=== PATIENT | male | born 1965 | race Caucasian/White ===

== ENCOUNTER 2023-09-20 20:11 | Emergency (ER) | payer BC, SELFPAY ==
[2023-09-20 20:16] VITALS: BP 156/94; PULSE 95; RESP 18; TEMP 36.8; O2SAT 100; BMI 24.3
--- NOTE | 2023-09-20 20:36 | XR_ITS ---
[place] [id number] Patient Name: ELIZABETH PHOENIX MRN: [id number] date: 1965 Sex: M Assigned Patient Location: ER Current Patient Location: ED.MAIN Accession/Order Number: [id number] Exam Date: 09/20/2023 20:45 Report Date: 09/20/2023 21:05 At the request of: HEIDI PRIETO Procedure: XR shoulder RT min 2V EXAM: XR shoulder RT min 2V TECHNIQUE: Internal rotation, external rotation and scapular Y views right shoulder HISTORY: Right shoulder pain COMPARISON: None. FINDINGS: No fracture or dislocation. Soft tissues are unremarkable. Mild degenerative change of the acromioclavicular joint. XR/XR shoulder RT min 2V IMPRESSION: No fracture Electronically authenticated by: SHAHLA AGUILAR Date: 09/20/2023 21:05
--- NOTE | 2023-09-20 20:46 | ED_ITS ---
HPI - Extremity Injury (Upper) General Chief Complaint: Extremity Injury, Upper Stated Complaint: Upper Extremity Pain Time Seen by Provider: 09/20/23 20:36 Source: patient Mode of arrival: walk-in Limitations: no limitations History of Present Illness HPI narrative: Patient is a 57-year-old male who presents to the emergency department for right shoulder pain increasing throughout the day. Patient states he is not sure if he may have slept wrong on his shoulder. 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 He denies any specific mechanism of injury or trauma. He states pain is increased throughout the day and now he is having trouble with abduction at the right shoulder. Most of his pain is at the right glenohumeral joint. He denies numbness or tingling into the right arm. No chest pain or shortness of breath. He does not take any blood thinners, no medications for diabetes at home. No pain radiation down the arm. Related Data Previous Rx's ?Medication ?Instructions ?Recorded methocarbamol 750 mg tablet 750 mg PO TID PRN pain #20 tabs 09/20/23 prednisone 20 mg tablet See Rx Instructions .Route 09/20/23 .COMPLEX #12 tabs Allergies Allergy/AdvReac Type Severity Reaction Status Date / Time No Known Drug Allergies Allergy Verified 09/20/23 20:20 Review of Systems ROS Constitutional Denies: fever or chills Ears, nose, mouth, and throat Denies: throat pain or nasal congestion Cardiovascular Denies: chest pain Respiratory Denies: shortness of breath or cough Gastrointestinal Denies: nausea or vomiting Genitourinary Denies: painful urination Musculoskeletal Reports: extremity pain, joint pain and limited range of m otion; Denies: back pain or neck pain Integumentary/Breast Denies: rash Neurological Denies: headache Hematologic/Lymphatic Denies: easy bruising or easy bleeding Exam Narrative Exam Narrative: Gen.: Awake, alert, in no distress Head: Normocephalic, atraumatic ENT: Moist mucous membranes Respiratory: No respiratory distress Extremities: Limited abduction of the right shoulder, diffusely tender on the right glenohumeral joint with no obvious deformity. 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 2+ right radial pulse. No tenderness over the clavicle or scapula. Psych: Normal mood and affect Neuro: No focal neuro deficit Skin: Warm, dry, intact Constitutional Vital Signs, click to edit/add: Last Vital Signs Temp 98.2 F 09/20/23 20:16 Pulse 95 H 09/20/23 20:16 Resp 18 09/20/23 20:16 BP 156/94 H 09/20/23 20:16 Pulse Ox 100 09/20/23 20:16 O2 Del Method Room Air 09/20/23 20:16 Course Vital Signs Vital signs: Vital Signs Temperature 98.2 F 09/20/23 20:16 Pulse Rate 95 H 09/20/23 20:16 Respiratory Rate 18 09/20/23 20:16 Blood Pressure 156/94 H 09/20/23 20:16 Pulse Oximetry 100 09/20/23 20:16 Oxygen Delivery Method Room Air 09/20/23 20:16 Temperature 98.2 F 09/20/23 20:16 Pulse Rate 95 H 09/20/23 20:16 Respiratory Rate 18 09/20/23 20:16 Blood Pressure 156/94 H 09/20/23 20:16 Pulse Oximetry 100 09/20/23 20:16 Oxygen Delivery Method Room Air 09/20/23 20:16 MDM - Extremity Injury (Upper) MDM Narrative Medical decision making narrative: X-rays with mild degenerative changes, no acute process noted. Patient treated for symptoms in the ER and discharged home on a steroid taper with muscle relaxants for right shoulder pain. Follow-up with orthopedics, sling for 2 to 3 days as needed and return to the ER if symptoms change or worsen. Patient is neurovascularly intact at discharge. Medical Records Attestation: I reviewed the patient's medical records. Imaging Data XR shoulder: Attestation: I have reviewed the pertinent imaging results. Radiologist's impression: ITS Impressions Shoulder X-Ray 09/20/23 20:36 IMPRESSION: No fracture Electronically authenticated by: SHAHLA AGUILAR Date: 09/20/2023 21:05 Discharge Plan Discharge Stand Alone Forms: Portal Instructions Chief Complaint: Extremity Injury, Upper Clinical Impression: Right shoulder strain Patient Disposition: Home, Self-Care Time of Disposition Decision: 21:02 Condition: Good Prescriptions / Home Meds: New prednisone 20 mg tablet See Rx Instructions .ROUTE .COMPLEX Qty: 12 0RF Rx Instructions: 3 tabs daily for 2 days, then 2 tabs daily for 2 days, then 1 tab daily for 2 days methocarbamol 750 mg tablet 750 mg PO TID PRN (Reason: pain) Qty: 20 0RF Print Language: Amharic Instructions: Muscle Strain (ED), How to Use a Sling (ED) Referrals: Aries Tang MD [Primary Care Provider] - 1 week Javi Sierra MD [Physician] - As needed Discharge Date/Time: 09/20/23 21:15
[2023-09-20] MEDS: ORPHENADRINE 60 MG/ 2 ML VIAL IM (20:59)
[2023-09-20] MEDS: HYDROCODONE/ACET 5-325 MG TABLET 1 TAB PO (20:59)
[2023-09-20] MEDS: KETOROLAC TROMETHAMINE 60 MG/2 ML VIAL IM (21:00)
== END 2023-09-20 21:15 | disposition home or self-care (01) ==
PROVIDERS: Emergency Provider Emergency Medicine; PCP Family Medicine
DX: S46.911A Strain of unspecified muscle, fascia and tendon at shoulder and upper arm level, right arm, initial encounter (principal); X58.XXXA Exposure to other specified factors, initial encounter
CPT/HCPCS: 73030; 96372; 99284

== ENCOUNTER 2024-05-11 08:14 | Outpatient (OUT) | payer BC, SELFPAY ==
[2024-05-11 09:08] LABS: Basophils Absolute Auto 0.1 10^3/uL (0.0-0.1); Basophils Percent Auto 0.7 % (0.2-2.0); Eosinophils Absolute Auto 0.2 10^3/uL (0.0-0.7); Eosinophils Percent Auto 2.2 % (0.9-7.0); Hematocrit 44.9 % (42.0-54.0); Immature Granulocytes Abs Auto 0.02 10^3/uL (0.00-0.03); Immature Granulocytes Pct Auto 0.3 % (0.0-0.5); Lymphocytes Absolute Auto 2.3 10^3/uL (1.2-3.8); Lymphocytes Percent Auto 30.5 % (20.5-60.0); Mean Corpuscular HGB Conc 33.4 g/dL (29.9-35.2); Mean Corpuscular Hemoglobin 30.5 pg (25.9-34.0); Mean Corpuscular Volume 91.4 fL (80.0-94.0); Monocytes Absolute Auto 0.7 10^3/uL (0.3-0.8); Monocytes Percent Auto 9.9 % (1.7-12.0); Neutrophils Absolute Auto 4.2 10^3/uL (1.4-6.5); Neutrophils Percent Auto 56.4 % (43.0-75.0); Platelet Count 223 10^3/uL (150-450); Red Blood Count 4.91 10^6/uL (4.70-6.10); Red Cell Distribution Width 12.6 % (11.0-15.0); White Blood Count 7.4 10^3/uL (4.0-11.0)
[2024-05-11 09:20] LABS: Estimated Average Glucose 111 mg/dL; Glycohemoglobin A1C 5.5 % (4.5-6.2)
[2024-05-11 09:31] LABS: Alanine Aminotransferase 20 U/L (16-63); Albumin Level 3.2 g/dL (3.4-5.0); Alkaline Phosphatase 109 U/L (46-116); Aspartate Amino Transferase 6 U/L (15-37); Bilirubin Total 0.5 mg/dL (0.2-1.0); Calcium 8.7 mg/dL (8.5-10.1); Carbon Dioxide 26.5 mmol/L (21.0-32.0); Chloride 107 mmol/L (98-107); Chol HDL Ratio 4.8; Cholesterol 179 mg/dL (<=200); Estimated GFR (African America >60 (>=60 mL/min/1.73m^2); Estimated GFR (Non-African Ame >60 (>=60 mL/min/1.73m^2); Globulin 3.3 g/dL; Glucose 98 mg/dL (74-106); HDL Cholesterol 37 mg/dL (40-60); Potassium 4.5 mmol/L (3.5-5.1); Sodium 142 mmol/L (136-145); Total Protein 6.5 g/dL (6.4-8.2); Triglycerides 138 mg/dL (<=150); VLDL CHOLESTEROL 27.6 mg/dL
[2024-05-11 10:05] LABS: Prostate Specific Antigen Scrn 0.62 ng/mL (<=4.00)
== END 2024-05-11 08:15 | disposition home or self-care (01) ==
PROVIDERS: PCP Family Medicine; Visit Provider Family Medicine
DX: Z00.00 Encounter for general adult medical examination without abnormal findings (principal)
CPT/HCPCS: 36415; 80053; 80061; 83036; 85025; G0103

== ENCOUNTER 2024-06-03 16:04 | Outpatient (OUT) | payer BC, SELFPAY ==
--- NOTE | 2024-06-03 | CT_ITS ---
[address] [address] Patient Name: ELIZABETH PHOENIX MRN: [id number] date: 1965 Sex: M Assigned Patient Location: CT Current Patient Location: Accession/Order Number: [id number] Exam Date: 06/03/2024 16:05 Report Date: 06/04/2024 05:44 At the request of: HARRY BAIG Procedure: CT lung screening low-dose EXAMINATION: CT lung screening low-dose HISTORY: F17.210 COMPARISON: No relevant comparison available. TECHNIQUE: Axial, Coronal, and Sagittal images were created without the administration of IV contrast material. Dose reduction techniques were achieved by using automated exposure control and/or adjustment of mA and/or kV according to patient size and/or use of iterative reconstruction technique. FINDINGS: LUNGS: Irregular geographic shaped opacity within lingula, 18 x 16 x 6 mm. Moderate-marked emphysematous changes within upper lung regions. PLEURA: No mass, effusion, or pneumothorax. VASCULATURE: No abnormality. RAGINI: No mass or pathologic adenopathy. MEDIASTINUM: No mass or pathologic adenopathy. CARDIAC: No enlargement, pericardial thickening, or pericardial effusion. Coronary Artery calcifications: AORTA: No aneurysm or dissection. CHEST WALL: No mass or axillary adenopathy BONES: No bone lesion or fracture. LIMITED ABDOMEN: No suspicious findings. Limited images of the upper abdomen. OTHER: Negative. CT/CT lung screening low-dose IMPRESSION: 1. Lung-RADS Category 4B- Suspicious. Findings for which additional diagnostic testing and/ or tissue sampling is recommended. Chest CT with or without contrast, PET/CT and/ or tissue sampling depending on the * probability of malignancy and comorbidities. PET/CT may be used when there is a >= 8 mm solid component. 2. PET imaging recommended for further evaluation of 18 mm geographic shaped soft tissue opacity within lingula. Electronically authenticated by: SHOBHA PATINO Date: 06/04/2024 05:44
== END 2024-06-03 16:05 | disposition home or self-care (01) ==
LOC: CT 16:05
PROVIDERS: PCP Family Medicine; Visit Provider Family Medicine
DX: R91.8 Other nonspecific abnormal finding of lung field (principal); F17.210 Nicotine dependence, cigarettes, uncomplicated
CPT/HCPCS: 71271

== ENCOUNTER 2024-06-17 15:45 | Outpatient (OUT) | payer BC, SELFPAY ==
--- NOTE | 2024-06-17 15:48 | PE_ITS ---
The [address] [address] Patient Name: ELIZABETH PHOENIX MRN: [id number] date: 1965 Sex: M Assigned Patient Location: PETCT Current Patient Location: PETCT Accession/Order Number: [id number] Exam Date: 06/17/2024 16:23 Report Date: 06/20/2024 23:39 At the request of: HARRY BAIG Procedure: PET skull to mid thigh PET/CT: HISTORY: Pulmonary nodule. COMPARISON: CT chest low-dose lung screening 06/03/2024. TECHNIQUE: The patient was injected with 14.69 mCi of F-18 fluorodeoxyglucose (FDG), and an emission scan was performed from the base of the skull to the mid thigh. Noncontrast CT was performed for attenuation correction and anatomic localization. The blood glucose level was 77 mg/dl. The uptake time was 49 minutes. FINDINGS: HEAD AND NECK: There is thickening of the nasopharyngeal soft tissues with intense FDG uptake on image 16 with SUV max 11.7 and there is a focus of increased activity in the left nasopharynx on image 21 with SUV max 16.4. There is prominent activity within the tonsils which is somewhat more intense in the left than the right with SUV max 13.6 on the left and 8.2 on the right. CHEST: The SUVmax of the mediastinum = 3.0 using the patient's body weight as the normalization method. The previously noted nodular density in the lingula shows no FDG uptake and appears decreased in size at 1.1 x 0.6 cm, previously 1.9 x 1.6 cm. This appears to be likely due to resolving atelectasis. There are multiple hypermetabolic bilateral axillary and subpectoral lymph nodes including for example a left axillary lymph node on image 71 with SUV max 16.7 measuring 1.9 x 0.9 cm, previously measuring 1.8 x 1.2 cm. There is a right axillary node on image 66 with SUV max 11.8 measuring 1.4 x 1 cm, previously 1.8 x 1 cm. There is a subcentimeter hypermetabolic lymph node in the subcarinal region at azygoesophageal recess and there are small hypermetabolic bilateral hilar lymph nodes. ABDOMEN AND PELVIS: There are bilateral hypermetabolic external iliac and inguinal lymph nodes including for example a right inguinal lymph node on image 260 with SUV max 12.6 measuring 1.5 x 1.1 cm. Otherwise physiologic distribution of activity. MUSCULOSKELETAL SYSTEM: There is moderate, likely inflammatory related activity about the shoulders bilaterally. There is an otherwise physiologic distribution of activity in the bone marrow. ADDITIONAL CT FINDINGS: There are moderate emphysematous changes in the lungs. There is diffuse atherosclerotic calcification of the aorta, iliac and femoral arteries. There are multiple diverticula in the descending and sigmoid colon with no acute diverticulitis. There is irregular sclerosis in the bilateral femoral head suspicious for avascular necrosis. There is transitional anatomy at the lumbosacral junction with a partially sacralized L5 on the left and a pseudoarticulation at L5-S1. There are bulky anterior osteophytes in the mid thoracic spine consistent with DISH and there are moderate degenerative changes of the lumbar spine. PET/PET skull to mid thigh IMPRESSION: 1. The previously noted lingular opacity appears decreased in size, non-FDG avid and is likely due to atelectasis. 2. Hypermetabolic bilateral axillary, external iliac and inguinal lymphadenopathy suspicious for a lymphoproliferative process such as lymphoma. Consider tissue sampling. 3. Thickening of the nasopharyngeal soft tissues with intense FDG uptake and focus of activity in the left nasopharynx. There is also prominent tonsillar activity, left greater than right. This may be inflammatory or due to malignancy. Consider direct visualization and/or contrast-enhanced CT or MRI of the neck. 4. Additional CT findings as described above including partial sacralization of L5 on the left with a pseudoarticulation. 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 Electronically authenticated by: SHOBHA SHELTON Date: 06/20/2024 23:39
== END 2024-06-17 15:46 | disposition home or self-care (01) ==
LOC: PETCT 15:45
PROVIDERS: PCP Family Medicine; Visit Provider Family Medicine
DX: R91.8 Other nonspecific abnormal finding of lung field (principal); C34.00 Malignant neoplasm of unspecified main bronchus
CPT/HCPCS: 78815; A9552

== ENCOUNTER 2024-06-28 15:31 | Outpatient (OUT) | payer BC, SELFPAY ==
--- OUTSIDE RECORDS SUMMARY | 2024-06-27 16:32 | XMS_ITS | CCD ---
Author Organization [facility] Care Team Providers Care Sugar Drier Name Role Phone KAILA ., BETTYE Admitting Unavailable HARRY TANG Primary Care Unavailable CONNER .BENJAMIN Consulting Unavailliborio BRIGHT ., BETTYE Attending Unavailable WEI QUEZADA Consulting Unavailable KAILA ., BETTYE Admitting Unavailable HARRY TANG Primary Care Unavailable KAILA Gleason, BETTYE Attending Unavailable KAILA Gleason, BETTYE Consulting Unavailable Harry Tang MD Primary Care Provider [phone] SANDOVAL BARTLETT Attending Unavailable HILLS, SANDOVAL D Referring Unavailable HILLS, SANDOVAL D Attending Unavailable HILLS, SANDOVAL D Referring Unavailable HAYES, DEVIN T Attending Unavailable HAYES, DEVIN T Attending Unavailable HAYES, DEVIN T Referring Unavailable HILLS, SANDOVAL D Attending Unavailable HILLS, SANDOVAL D Referring Unavailable HILLS, SANDOVAL D Referring Unavailable HILLS, SANDOVAL D Attending Unavailable BREEZYDania MOTA Attending Unavailable Allergies Allergy Classification Reported Allergen(s) Allergy Type Date of Onset Reaction(s) Facility (1 source) No Known Medication Allergies; Translations: [No Known Medication Allergies] Propensity to adverse reactions (disorder) [facility] Repository Medications Current Medications Medication Drug Class(es) Dates Sig (Normalized) Sig (Original) meloxicam 15 mg oral tablet (4 sources) Nonsteroidal Anti-inflammatory Drug Start: 05-06-2024 End: 08-04-2024 take 1 tablet by mouth once daily at mealtime meloxicam (Mobic) 15 MG tablet Indications: Bilateral shoulder pain, unspecified chronicity , Bilateral wrist pain Take 1 tablet (15 mg) by mouth Daily With food. 30 tablet 2 05/06/2024 08/04/2024 Active methocarbamol 750 mg oral tablet (4 sources) Muscle Relaxant Start: 09-21-2023 End: 02-26-2024 take 1 tablet by mouth three times daily as needed for pain methocarbamol (Robaxin) 750 MG tablet TAKE 1 TABLET BY MOUTH 3 TIMES A DAY NEEDED FOR PAIN 09/21/2023 02/26/2024 Discontinued (Therapy completed) naproxen 500 mg oral tablet (7 sources) Nonsteroidal Anti-inflammatory Drug Start: 11-13-2023 End: 08-21-2024 take 1 tablet by mouth in the morning naproxen (Naprosyn) 500 MG tablet Indications: Dysfunction of right rotator cuff Take 1 tablet (500 mg) by mouth in the morning and 1 tablet (500 mg) in the evening. Take with meals. 60 tablet 1 02/23/2024 08/21/2024 Active Problems Active Problems Problem Classification Problem Date Documented Da te Episodic/Chronic E Codes: Struck by; against (1 source) Striking against or struck by other objects, initial encounter; Translations: [STRIKING AGNST/STRUCK OTH OBJ INIT] Onset: 11-02-2022 Episodic Headache; including migraine (4 sources) Headache; including migraine; Translations: [HEADACHE UNSPECIFIED] Onset: 09-15-2022 Other non-traumatic joint disorders (2 sources) Pain in right shoulder; Translations: [Pain in joint, shoulder region] 05-06-2024 Episodic Other non-traumatic joint disorders (2 sources) Bilateral wrist pain; Translations: [Pain in right wrist] 05-06-2024 Episodic Other upper respiratory infections (1 source) Acute sinusitis, unspecified; Translations: [ACUTE SINUSITIS UNSPECIFIED] Onset: 09-19-2022 Episodic Substance-related disorders (1 source) Nicotine dependence, cigarettes, uncomplicated; Translations: [NICOTINE DEPEND CIGARETTES UNCOMP] Onset: 11-02-2022 Chronic Superficial injury; contusion (5 sources) Abrasion of left hand, initial encounter; Translations: [Contusion of left hand, initial encounter] Onset: 11-01-2022 Episodic Past or Other Problems Problem Classification Problem Date Documented Da te Episodic/Chronic Other connective tissue disease (1 source) Disorder of rotator cuff; Translations: [Unspecified disorder of synovium and tendon, right shoulder] 02-23-2024 Episodic Residual codes; unclassified (2 sources) History of arthroscopic procedure on shoulder; Translations: [Other specified postprocedural states] 02-26-2024 Episodic Results Test Name Value Interpretation Reference Range Facility No Panel Informationon 05-06 Radiology Study observation (narrative) [employer] XR Shoulder - left 2 Viewson 05-06-2024 Imaging Result : AP Grashey and scapular Y-view of the left shoulder taken in the officeToday does not demonstrate any significant proximal migration of the humeral head or osteoarthritis of the glenohumeral joint. He does have some thickening of the tip of the acromion with some downsloping which may be significant for impingement and some early ACJoint arthritic findings as well. No evidence of bony tumor or acute fracture seen. [employer] XR Shoulder - right 2 Viewso n 05-06-2024 [employer] Imaging Result: AP Grashey and scapular Y-view in the office taken today saved to the permanent record shows post surgical change with acromioplasty/partial distal clavulectomy with appropriate coplaning. No acute fracture, dislocation, tumor or infection seen. He also has early glenohumeral arthritic findings to the inferior pole of the acetabulum. No evidence of bony tumor acute fracture seen. [employer] MR SHOULDER RIGHT WO IV CONT RASTon 11-14-2023 MR SHOULDER RIGHT WO IV CONTRAST EXAM: MR SHOULDER RIGHT WO IV CONTRAST HISTORY: Right shoulder pain. Decreased range of motion. Possible rotator cuff tear TECHNIQUE: Multiplanar multisequence MRI of the shoulder was performed Without contrast. COMPARISON: Shoulder radiographs September 20, 2023 FINDINGS: Mild degenerative changes of the acromioclavicular joint with tiny undersurface osteophyte formation. The acromion is curved. Coracoclavicular ligament intact. Small amount of subacromial/subdeltoid bursal fluid. Bursal surface fraying of supraspinatus tendon superimposed on mild tendinosis. Infraspinatus, subscapularis, and teres minor tendons are intact. No atrophy or fatty infiltration of the rotator cuff musculature. The intra-articular and extra-articular long head biceps tendon is intact. The biceps tendon resides within the bicipital groove. Tear of the anterior superior through posterior superior labrum. No well-defined or measurable cartilage defect. No glenohumeral joint effusion . IMPRESSION: Bursal surface fraying of supraspinatus tendon superimposed on mild tendinosis. Tear of the anterior superior through posterior superior labrum. ELECTRONICALLY SIGNED BY: Fab Stern, DO Normal Not Available Comment on above: Order Comment: Lower back surgery- no metal XR HAND LT MIN 3Von 11-02-19 23 XR HAND LT MIN 3V EXAM: XR HAND LT MIN 3V HISTORY: Broken garage door spring hit hand COMPARISON: None. TECHNIQUE: 3 views FINDINGS: No visualized fracture, dislocation or subluxation. No radiodense foreign body. Joint spaces are normal. IMPRESSION: No visualized osseous abnormality. Electronically authenticated by: WEI QUEZADA Date: 2022-11-01 15:45 Normal [facility] INFLUENZA A AND B AGon 09-15 INFLUANE SEE BELOW Normal [facility] Comment on above: Result Comment: Nega tive for Flu A protein angiten. Infection due to Flu A cannot be ruled out. Flu A angiten in the sample may be below the detection limit of the test. Performed By: #### I NFLUAB #### [facility] [address] [place] [address] Dr. Megh[facility] Hern[facility] SEE BELOW Normal [facility] Comment on above: Result Comment: Nega tive for Flu B protein antigen. Infection due to Flu B cannot be ruled out. Flu B antigen in the sample may be below the detection limit of the test. Performed By: #### I NFLUAB #### [facility] [address] [place] [address] Dr. Meghana Hernandes INFLUENZA A AG Negative Normal NEGATIVE SEE COMMENT [facility] Comment on above: Performed By: #### I NFLUAB #### [facility] [address] [place] [address] Dr. Meghana Hernandes INFLUENZA B AG Negative Normal NEGATIVE SEE COMMENT [facility] Comment on above: Performed By: #### I NFLUAB #### [facility] [address] [place] [address] Dr. Meghana Hernandes Vital Signs Date Time Vital Sign Value Performing Clinician Faci lity 05-06-2024 10:26-0500 Body height 170.2 cm [facility] Work Phone: [facility] 02-26-2024 08:45-0400 Body height 170.2 cm Sandoval Bartlett PA Work Phone: [facility] 02-26-2024 08:45-0400 Body mass index (BMI) [Ratio] 29.6 kg/m2 Sandoval Bartlett PA Work Phone: [facility] 02-26-2024 08:45-0400 Body weight 85.73 kg Sandoval Bartlett PA Work Phone: [facility] Encounters Encounter Date Encounter Type Care Provider Facility Start: 05-14-2024 End: 05-14-2024 ambulatory Dania TIJERINA Facility:[facility] Start: 05-06-2024 End: 05-06-2024 Patient encounter procedure Sandoval Bartlett PA Work Phone: [facility] Comment on above: Bilateral shoulder p ain, unspecified chronicity (Primary Dx); Bilateral wrist pain Start: 05-06-2024 End: 05-06-2024 ambulatory SANDOVAL D NOAM Not Available Start: 02-26-2024 End: 02-26-2024 Bamboo flowsheet Sandoval Bartlett PA Work Phone: [facility] Start: 02-26-2024 End: 02-26-2024 Bamboo flowsheet Sandoval Bartlett PA Work Phone: [facility] Start: 02-26-2024 End: 02-26-2024 Postop follow up visit related to original px Sandoval Bartlett PA Work Phone: [facility] Comment on above: S/P arthroscopy of r ight shoulder (Primary Dx) Start: 02-26-2024 End: 02-26-2024 ambulatory SANDOVAL D HILLS Not Available Start: 02-22-2024 End: 02-23-2024 Telephone encounter Ene De La Torre RN [facility] Start: 12-26-2023 End: 12-26-2023 ambulatory DEVIN HAYES Not Available Start: 12-05-2023 End: 12-05-2023 ambulatory DEVIN HAYES Not Available Start: 11-14-2023 End: 11-14-2023 ambulatory SANDOVAL D HILLS Not Available Start: 11-13-2023 End: 11-13-2023 ambulatory SANDOVAL D HILLS Not Available Start: 10-16-2023 End: 10-16-2023 ambulatory SANDOVAL BARTLETT Not Available Start: 11-01-2022 End: 11-01-2022 ambulatory BETTYE BRIGHT . Facility:[facility] Start: 09-15-2022 End: 09-15-2022 ambulatory BETTYE BRIGHT . Facility: Procedures Date Procedure Procedure Detail Performing Clinician Start: 05-06-2024 Radex shoulder compl ete minimum 2 views Sandoval Bartlett PA Work Phone: Plan of Treatment Date Care Activity Detail Author Start: 02-26-2024 End: 02-26-2024 Patient encounter procedure [facility] Comment on above: Arrived Payers Date Payer Category Payer Blue [employer] Blue [employer] BCBS [id number] 2021 Unknown BCBS BCBS xxxxxx [id number] 2021-Present [phone] [address] [place] [address] [id number] 1965 Unknown [id number] [id number]. 2.593 1965 Unknown [id number] [id number]. 2.593 1965 Unknown [id number] [id number]. 2.1259 1965 Unknown [id number] [id number]. 2.1258 1965 Unknown [id number] [id number]. 2.1258 1965 Unknown [id number] [id number]. 2.1258 1965 Unknown [id number] [id number]. 2.1258 1965 Unknown [id number] 2.16.840.1.508587.3.579. 2.1258 1965 Unknown [id number] 2.16.840.1.109416.3.579. 2.1258 1965 Unknown [id number] [id number]. 2.1258 1965 Unknown [id number] [id number]. 2.1258 1965 Unknown [id number] [id number]. 2.9 1959 Unknown [id number] Social History Date Type Detail Facility Start: 12-26-2023 Tobacco smoking stat [facility] Smokes tobacco daily [facility] History of tobacco use Cigarette Smoker [facility] Start: 12-26-2023 Tobacco use and exposure Smoke less tobacco non-user [facility] Start: 02-26-2024 End: 05-06-2024 Alcoholic beverage intake [facility] Start: 12-05-2023 End: 02-26-2024 [facility] of Social function [facility] Start: 12-05-2023 End: 02-26-2024 Tobacco use panel [facility] Start: 1965 Sex assigned at Not on file [facility] History of Present illness Narrative 05-06-2024 BENJAMIN Bassett - 05/06/2024 10:30 AM EST Note Date & Type Note Facility 05-06-2024 History of Presen t illness Narrative Images from the original note were not included. Subjective Patient ID: Deon Hoskins is a 58 y.o. male. 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 He does not feel they Naprosyn works as well as the meloxicam did and [facility] would not refill his meloxicam because of the Naprosyn prescription that had been sent in previously. He sees Dr. Tang but it has been several years and is encouraged to follow up for blood work assess his chemistries and blood count on a yearly basis before continuing anti-inflammatories more than the next 3 months. He has plans to limit his work load and stopped doing heavy activities such as stephy after this job is completed. Objective Ortho Exam Patient has good range of motion of both shoulders he does have impingement with the left while abducted at 90 degrees both supraspinatus subscap and infraspinatus tendons appear to be intact. It is not have any radicular symptoms. He has good internal rotation to the lower thoracic spine bilaterally. Some AC joint tenderness on the left with cross-arm activity and general crepitus of the subacromial bursa on the right is noted with no significant dysfunction or pain. Complains of achiness and soreness to the ulnar aspect of both wrists with no apparent paresthesias or numbness to the hands he has had prior carpal tunnel release. Image Results: XR shoulder 2+ views right Imaging Result: AP Grashey and scapular Y-view in the office taken today saved to the permanent record shows post surgical change with acromioplasty/partial distal clavulectomy with appropriate coplaning. No acute fracture, dislocation, tumor or infection seen. He also has early glenohumeral arthritic findings to the inferior pole of the acetabulum. No evidence of bony tumor acute fracture seen. XR shoulder 2+ views left Imaging Result : AP Grashey and scapular Y-view of the left shoulder taken in the officeToday does not demonstrate any significant proximal migration of the humeral head or osteoarthritis of the glenohumeral joint. He does have some thickening of the tip of the acromion with some downsloping which may be significant for impingement and some early ACJoint arthritic findings as well. No evidence of bony tumor or acute fracture seen. Assessment/Plan Encounter Diagnoses: Bilateral shoulder pain, unspecified chronicity Bilateral wrist pain Orders Placed This Encounter XR shoulder 2+ views right XR shoulder 2+ views left meloxicam (Mobic) 15 MG tablet Follow up if symptoms worsen or fail to improve. Consider giving [id number] wrist supports to help with your pain and swelling which may be affected from arthritis versus tendinitis in the wrist. Use ice to areas of soreness for 20 minutes several times a day start taking the meloxicam routinely with food once daily and we will need to get in to see Dr. Tang for basic lab work and kidney function to continue the meloxicam. May follow up in the future for x-rays of the wrist if treatment above does not help. May receive cortisone injection in both shoulders and any time 3 times a year for continued achiness and impingement and bursitis symptoms. documented in this encounter [facility] Instructions 05-06-2024 Patient Instructions Note Date & Type Note Facility 05-06-2024 Instructions BENJAMIN Bassett - 05/06/2024 10:30 AM EST Consider giving [id number] wrist supports to help with your pain and swelling which may be affected from arthritis versus tendinitis in the wrist. Use ice to areas of soreness for 20 minutes several times a day start taking the meloxicam routinely with food once daily and we will need to get in to see Dr. Tang for basic lab work and kidney function to continue the meloxicam. May follow up in the future for x-rays of the wrist if treatment above does not help. May receive cortisone injection in both shoulders and any time 3 times a year for continued achiness and impingement and bursitis symptoms. documented in this encounter [facility] History of Present illness Narrative 02-26-2024 BENJAMIN Bassett - 02/26/2024 9:00 AM EDT Note Date & Type Note Facility 02-26-2024 History of Presen t illness Narrative Subjective Patient ID: Deon Hoskins is a 58 y.o. male. Chief Complaint: Post-op Visit of the Right Shoulder Last Surgery: No surgery found Last Surgery Date: No surgery found HPI He comes in follow-up ready to go back to work tomorrow full duty he is having some soreness in his left shoulder which has not been evaluated or had x-rays. He has got near full range of motion on his right side with no significant impingement pain he does have occasional snap and pop feeling. Objective Ortho Exam Patient's incisions have healed up nicely with no evidence of infection or erythema. He has got forward flexion of 150 degrees good rotator cuff strength with supraspinatus subscap and infraspinatus testing.He still slow but has regained internal rotation to the upper lumbar region. Left shoulder he does have prominence of his AC joint and some crepitus with range of motion does have some subacromial crepitus as well rotator cuff appears to be intact but somewhat weakened by pain inhibition with abduction and 90 degrees and resistance testing. Internal rotation to the lower thoracic spine is noted. Subscap and infraspinatus have good strength Image Results: XR shoulder 2+ views right Imaging Result: Two views, AP and Lateral, in the office taken today saved to the permanent record shows post surgical change with acromioplasty/partial distal clavulectomy with appropriate coplaning. No acute fracture, dislocation, tumor or infection seen. Assessment/Plan Encounter Diagnoses: S/P arthroscopy of right shoulder No orders of the defined types were placed in this encounter. Follow up if symptoms worsen or fail to improve.Continue Naprosyn twice daily with food to avoid GI upset this will help with inflammation in both shoulders. Returned to normal activity and work tomorrow full duty. Call if you have persistent troubles with the opposite shoulder and we can get appointment with myself or Dr. Hayes for x-rays and evaluation and treatment options. Ice to the shoulder 20 minutes several times a day and before bed we will be helpful. Tylenol for breakthrough discomfort during the daytime. documented in this encounter [facility] Instructions 02-26-2024 Patient Instructions Note Date & Type Note Facility 02-26-2024 Instructions BENJAMIN Bassett - 02/26/2024 9:00 AM EDT Continue Naprosyn twice daily with food to avoid GI upset this will help with inflammation in both shoulders. Returned to normal activity and work tomorrow full duty. Call if you have persistent troubles with the opposite shoulder and we can get appointment with myself or Dr. Hayes for x-rays and evaluation and treatment options. Ice to the shoulder 20 minutes several times a day and before bed we will be helpful. Tylenol for breakthrough discomfort during the daytime. documented in this encounter [facility] Telephone encounter Note 02-23-2024 Telephone Encounter - BENJAMIN Bassett - 02/23/2024 2:11 PM EDT Note Date & Type Note Facility 02-23-2024 Telephone encount er Note Med refill [facility] Note 02-23-2024 Telephone Encounter - BENJAMIN Bassett - 02/23/2024 2:11 PM EDT Note Date & Type Note Facility 02-23-2024 Miscellaneous Notes Formattin g of this note might be different from the original. Med refill documented in this encounter [facility] Evaluation note Note Date & Type Note Facility Evaluation note Diagnosis Bilateral shoulder pain, unspecified chronicity- Primary Bilateral wrist pain documented in this encounter [facility] Evaluation note Note Date & Type Note Facility Evaluation note Diagnosis Dysfunction of right rotator cuff documented in this encounter [facility] Evaluation note Note Date & Type Note Facility Evaluation note Diagnosis S/P arthroscopy of right shoulder- Primary documented in this encounter [facility] Summary Purpose Family History No Family History Records FoundNo Family History Records FoundNo Family History Records Found Advance Directives No Advanced Directives Records FoundNo Advanced Directives Records FoundNo Advanced Directives Records Found Additional Source Comments (unrecognized sect ion and content) No Status Records FoundNo Status Records FoundNo Status Records Found INFORMATION SOURCE (unrecogn ized section and content) DATE CREATED AUTHOR 11/02/2022 [facility] DATE CREATED AUTHOR AUTHOR'S ORGANIZ ATION 05/07/2024 [facility] EPIC DATE CREATED AUTHOR AUTHOR'S ORGANIZ ATION 05/16/2024 [facility] Reason for Visit (unrecogniz ed section and content) Reason Comments Follow-up XR B/L R shoulder Sc ope [facility] 12/15/23 (MTP) 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, 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 Pain Reason Comments Post-op Visit Care Teams (unrecognized sec tion and content) Sugar Drier Relationship Specialty Start Date End Date Harry Tang MD [address] [place] [address] PCP - General Family Medicine 10/12/23 Sugar Drier Relationship Specialty Start Date End Date Harry Tang MD [address] [place] [address] PCP - General Family Medicine 10/12/23 Sugar Drier Relationship Specialty Start Date End Date Harry Tang MD [address] [place] [address] PCP - General Family Medicine 10/12/23 FOR RECORDS PERTAINING TO PATIENTS WHO ARE OR HAVE BEEN ENROLLED IN A CHEMICAL DEPENDENCY/SUBSTANCEABUSE PROGRAM, SOME INFORMATION MAY BE OMITTED. This clinical summary was aggregated from multiple sources. Caution should be exercised in using it in the provision of clinical care. This summary normalizes information from multiple sources, and as a consequence, information in this document may materially change the coding, format and clinical context of patient data. In addition, data may be omitted in some cases. CLINICAL DECISIONS SHOULD BE BASED ON THE PRIMARY CLINICAL RECORDS. [facility]. provides no warranty or guarantee of the accuracy or completeness of information in this document.
--- OUTSIDE RECORDS SUMMARY | 2024-06-28 15:33 | XMS_ITS | CCD ---
Author Organization [facility] Care Team Providers Care Personal Secretary Name Role Phone KAILA ., BETTYE Admitting Unavailable HARRY TANG Primary Care Unavailable CONNER .BENJAMIN Consulting Unavailliboiro BRIGHT ., BETTYE Attending Unavailable WEI QUEZADA Consulting Unavailable KAILA ., BETTYE Admitting Unavailable HARRY TANG Primary Care Unavailable KAILA Gleason, BETTYE Attending Unavailable KAILA Gleason, BETTYE Consulting Unavailable Harry Tang MD Primary Care Provider [phone] SANDOVAL BARTLETT Attending Unavailable HILLS, SANDOVAL D [...] Medication Allergies] Propensity to adverse reactions (disorder) [facility] Repository Medications Current Medications Medication Drug [...] Panel Informationon 05-06 Radiology Study observation (narrative) Grid Mobile XR Shoulder - left 2 Viewson 05-06-2024 [...] of bony tumor or acute fracture seen. [employer] e XR Shoulder - right 2 Viewso n 05-06-2024 [facility] Result: AP Grashey and scapular Y-view in the office taken today saved to the permanent record shows post surgical change with acromioplasty/partial distal clavulectomy with appropriate coplaning. No acute fracture, dislocation, tumor or infection seen. He also has early glenohumeral arthritic findings to the inferior pole of the acetabulum. No evidence of bony tumor acute fracture seen. [employer] e MR SHOULDER RIGHT WO IV CONT [...] WEI QUEZADA Date: 2022-11-01 15:45 Normal [facility] INFLUENZA A AND B AGon 09-15 INFLUANE SEE BELOW Normal [facility] Comment on above: Result Comment: Nega tive for Flu A protein angiten. Infection due to Flu A cannot be ruled out. Flu A angiten in the sample may be below the detection limit of the test. Performed By: #### I NFLUAB #### [facility] Laboratory [address] [place] [address] Dr. Meghana Hernandes [facility] SEE BELOW Normal [facility] Comment on above: Result Comment: Nega tive for Flu B protein antigen. Infection due to Flu B cannot be ruled out. Flu B antigen in the sample may be below the detection limit of the test. Performed By: #### I NFLUAB #### [facility] [address] [place] [address] Dr. Meghana Hernandes INFLUENZA A AG Negative Normal NEGATIVE SEE COMMENT [facility] Comment on above: Performed By: #### I NFLUAB #### [facility] [address] [place] [address] Dr. Meghana Hernandes INFLUENZA B AG Negative Normal NEGATIVE SEE COMMENT [facility] Comment on above: Performed By: #### I NFLUAB #### [facility] [address] [place] [address] Dr. Meghana Hernandes Vital Signs Date Time Vital Sign Value Performing Clinician Faci lity 05-06-2024 10:26-0500 Body height 170.2 cm [facility] Work Phone: [facility] 02-26-2024 08:45-0400 Body height 170.2 cm Sandoval Bartlett PA Work Phone: [facility] 02-26-2024 08:45-0400 Body mass index (BMI) [Ratio] 29.6 kg/m2 Sandoval Bartlett PA Work Phone: [facility] 02-26-2024 08:45-0400 Body weight 85.73 kg Sandoval Bartlett PA Work Phone: [facility] Encounters Encounter Date Encounter Type Care Provider Facility Start: 05-14-2024 End: 05-14-2024 ambulatory Dania TIJERINA Facility:[facility] Start: 05-06-2024 End: 05-06-2024 Patient encounter procedure [...] Category Payer Blue Cross Blue Shield BCBS [id number] 2021 Unknown BCBS BCBS [id number] [id number] 2021-Present [phone] [address] [place] [address] [id number] 1965 Unknown [id number] 2.16.840.1.193162.3.579. 2.593 1965 Unknown [id number] 2.16.840.1.687747.3.579. 2.593 1965 Unknown [id number] 2.16.840.1.699622.3.579. 2.1259 1965 Unknown [id number] 2.16.840.1.832590.3.579. 2.1258 1965 Unknown [id number] 2.16.840.1.033810.3.579. 2.1258 1965 Unknown [id number] 2.16.840.1.206334.3.579. 2.1258 1965 Unknown [id number] 2.16.840.1.084023.3.579. 2.1258 1965 Unknown [id number] 2.16.840.1.554491.3.579. 2.1258 1965 Unknown [id number] 2.16.840.1.200060.3.579. 2.1258 1965 Unknown [id number] 2.16.840.1.426389.3.579. 2.1258 1965 Unknown [id number] 2.16.840.1.938895.3.579. 2.1258 1965 Unknown [id number] 2.16.840.1.287045.3.579. 2.9 1959 Unknown [id number] Social History Date Type Detail Facility Start: 12-26-2023 Tobacco smoking stat [facility] Smokes tobacco daily [facility] [...] were not included. Subjective Patient ID: Deon Phoenix is a 58 y.o. male. 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 Consider giving nvrh-mjn-dpnywdf wrist supports to help with your pain [...] and bursitis symptoms. documented in this encounter [facility] Instructions 05-06-2024 Patient Instructions Note Date & Type Note Facility 05-06-2024 Instructions BENJAMIN Bassett - 05/06/2024 10:30 AM EST Consider giving lolk-cwj-gnnignx wrist supports to help with your pain [...] and bursitis symptoms. documented in this encounter [facility] History of Present illness Narrative 02-26-2024 BENJAMIN Bassett - 02/26/2024 9:00 AM EDT Note Date & Type Note Facility 02-26-2024 History of Presen t illness Narrative Subjective Patient ID: Deon Phoenix is a 58 y.o. male. Chief Complaint: [...] during the daytime. documented in this encounter [facility] Instructions 02-26-2024 Patient Instructions Note Date & [...] during the daytime. documented in this encounter [facility] Telephone encounter Note 02-23-2024 Telephone Encounter - BENJAMIN Bassett - 02/23/2024 2:11 PM EDT Note Date & Type Note Facility 02-23-2024 Telephone encount er Note Med refill [facility] Healthcare Note 02-23-2024 Telephone Encounter - BENJAMIN Bassett - 02/23/2024 2:11 PM EDT Note Date & Type Note Facility 02-23-2024 Miscellaneous Notes Formattin g of this note might be different from the original. Med refill documented in this encounter [facility] Healthcare Evaluation note Note Date & Type Note Facility Evaluation note Diagnosis Bilateral shoulder pain, unspecified chronicity- Primary Bilateral wrist pain documented in this encounter [facility] Healthcare Evaluation note Note Date & Type Note Facility Evaluation note Diagnosis Dysfunction of right rotator cuff documented in this encounter [facility] Healthcare Evaluation note Note Date & Type Note Facility Evaluation note Diagnosis S/P arthroscopy of right shoulder- Primary documented in this encounter [facility] Healthcare Summary Purpose Family History No [...] DATE CREATED AUTHOR AUTHOR'S ORGANIZ ATION 05/07/2024 [facility] EPIC DATE CREATED AUTHOR AUTHOR'S ORGANIZ ATION 05/16/2024 [facility] Reason for Visit (unrecogniz ed section and content) Reason Comments Follow-up XR B/L R shoulder Sc ope TSCNCO 12/15/23 (MTP) 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, 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 [facility]. provides no warranty or guarantee of the accuracy or completeness of information in this document.
[2024-06-28 15:45] LABS: Basophils Absolute Auto 0.1 10^3/uL (0.0-0.1); Basophils Percent Auto 0.6 % (0.2-2.0); Eosinophils Absolute Auto 0.2 10^3/uL (0.0-0.7); Eosinophils Percent Auto 2.3 % (0.9-7.0); Hematocrit 42.3 % (42.0-54.0); Hemoglobin 14.1 g/dL (14.0-18.0); Immature Granulocytes Abs Auto 0.02 10^3/uL (0.00-0.03); Immature Granulocytes Pct Auto 0.2 % (0.0-0.5); Lymphocytes Absolute Auto 2.7 10^3/uL (1.2-3.8); Mean Corpuscular HGB Conc 33.3 g/dL (29.9-35.2); Mean Corpuscular Hemoglobin 30.2 pg (25.9-34.0); Mean Corpuscular Volume 90.6 fL (80.0-94.0); Mean Platelet Volume 8.6 fL (9.5-13.5); Monocytes Absolute Auto 0.9 10^3/uL (0.3-0.8); Monocytes Percent Auto 10.9 % (1.7-12.0); Neutrophils Absolute Auto 4.5 10^3/uL (1.4-6.5); Platelet Count 230 10^3/uL (150-450); Red Blood Count 4.67 10^6/uL (4.70-6.10); Red Cell Distribution Width 12.9 % (11.0-15.0); White Blood Count 8.3 10^3/uL (4.0-11.0)
[2024-06-28 16:16] LABS: Alanine Aminotransferase 23 U/L (16-63); Albumin Level 3.4 g/dL (3.4-5.0); Alkaline Phosphatase 117 U/L (46-116); Anion Gap 13.1; Aspartate Amino Transferase 15 U/L (15-37); BUN Creatinine Ratio 9.8; Bilirubin Total 0.5 mg/dL (0.2-1.0); Chloride 101 mmol/L (98-107); Estimated GFR (African America >60 (>=60 mL/min/1.73m^2); Estimated GFR (Non-African Ame >60 (>=60 mL/min/1.73m^2); Globulin 3.5 g/dL; Glucose 90 mg/dL (74-106); Potassium 4.1 mmol/L (3.5-5.1); Sodium 136 mmol/L (136-145); Total Protein 6.9 g/dL (6.4-8.2)
== END 2024-06-28 15:32 | disposition home or self-care (01) ==
LOC: LAB 15:31
PROVIDERS: PCP Family Medicine; Visit Provider Family Medicine
DX: R53.83 Other fatigue (principal)
CPT/HCPCS: 36415; 80053; 85025

== ENCOUNTER 2024-07-11 07:39 | Outpatient (RCR) | payer BC, SELFPAY ==
[2024-07-11 12:22] LABS: Basophils Percent Auto 0.5 % (0.2-2.0); Eosinophils Absolute Auto 0.2 10^3/uL (0.0-0.7); Eosinophils Percent Auto 2.6 % (0.9-7.0); Hematocrit 43.7 % (42.0-54.0); Hemoglobin 14.7 g/dL (14.0-18.0); Immature Granulocytes Abs Auto 0.02 10^3/uL (0.00-0.03); Immature Granulocytes Pct Auto 0.2 % (0.0-0.5); Lymphocytes Absolute Auto 2.4 10^3/uL (1.2-3.8); Lymphocytes Percent Auto 29.9 % (20.5-60.0); Mean Corpuscular HGB Conc 33.6 g/dL (29.9-35.2); Mean Corpuscular Hemoglobin 30.2 pg (25.9-34.0); Mean Corpuscular Volume 89.9 fL (80.0-94.0); Mean Platelet Volume 8.6 fL (9.5-13.5); Monocytes Absolute Auto 0.8 10^3/uL (0.3-0.8); Monocytes Percent Auto 9.7 % (1.7-12.0); Neutrophils Absolute Auto 4.6 10^3/uL (1.4-6.5); Neutrophils Percent Auto 57.1 % (43.0-75.0); Platelet Count 271 10^3/uL (150-450); Red Blood Count 4.86 10^6/uL (4.70-6.10); Red Cell Distribution Width 12.7 % (11.0-15.0); White Blood Count 8.1 10^3/uL (4.0-11.0)
[2024-07-11 12:51] LABS: Lactate Dehydrogenase 161 U/L (85-227); Uric Acid 4.3 mg/dL (3.5-7.2)
[2024-07-12 15:08] LABS: Angiotensin-Converting Enzyme 61 U/L (14-82)
[2024-07-14 06:37] LABS: Immunoglobulin A, Qn, Serum 305 mg/dL (90-386); Immunoglobulin E, Total 101 IU/mL (6-495); Immunoglobulin G, Qn, Serum 864 mg/dL (603-1613); Immunoglobulin M, Qn, Serum 97 mg/dL (20-172)
== END 2024-07-12 07:55 | disposition home or self-care (01) ==
LOC: HEMC 07:39
PROVIDERS: PCP Family Medicine; Visit Provider Internal Medicine Hematology & Oncology
DX: R91.1 Solitary pulmonary nodule (principal); R59.1 Generalized enlarged lymph nodes; F17.210 Nicotine dependence, cigarettes, uncomplicated
CPT/HCPCS: 36415; 82164; 82784; 82785; 83615; 84550; 85025; G0463

== ENCOUNTER 2024-09-03 07:36 | Outpatient (RCR) | payer BC, SELFPAY | END 2024-09-04 08:16 | disposition home or self-care (01) | LOC: HEMC 07:36 | PROVIDERS: PCP Family Medicine; Visit Provider Internal Medicine Hematology & Oncology | DX: R91.1 Solitary pulmonary nodule (principal); R59.1 Generalized enlarged lymph nodes; F17.210 Nicotine dependence, cigarettes, uncomplicated | CPT/HCPCS: G0463 ==

== ENCOUNTER 2024-12-29 15:04 | Emergency (ER) | payer BC, SELFPAY ==
--- OUTSIDE RECORDS SUMMARY | 2024-09-03 06:15 | XMS_ITS ---
Author Organization [facility] in [place] Address [address] [place] [address] Care Team Providers Care Lending Consultant Name Role Phone Ramos Tang Primary Care Provider Yudith Escoto Unavailable [phone] REASON FOR VISIT MD Encounters Encounter Location Date Provider Diagnosis [facility] Oncology [address] [place] [address] 09/03/2024 Yudith Escoto Plan Of Treatment Next Appt Details Provider Name:Yudith Escoto , 03/04/2025 01:00:00 PM, [address] [place], [address], Progress Notes * Deon PHOENIX ADOB: [birth year] (59 yo M)Acc No.[id number]:09/03/2024 UNLOCKED PROGRESS NOTE Progress Notes Patient: Deon TY Provider: Leti Escoto M.D. :1965 A ge:58 Y S ex:Male Date:09/03/2024 Address:[address] [place] [phone] Pcp:Ramos Tang Subjective: * Chief Complaints: * 1 . MD. * Medical History: Objective: * Vitals: Assessment: Plan: * Treatment: * * Electronic signature of Michael Escoto MD, [id number] on 12/29/2024 at 03:11 PM EDT Sign off status: Pending Visit Status: V OICEMSG (Voice) * Provider: Leti Escoto M.D. Date: 0 09/03/2024 Generated for Bj ge/Elsie/Tiesha on: 0 12/29/2024 03:11 PM EDT
--- OUTSIDE RECORDS SUMMARY | 2024-09-03 07:22 | XMS_ITS ---
Author Organization [facility] in [place] Address [address] [place] [address] Care Team Providers Care Electric Golf Cart Repairers Name Role Phone Ramos Tang Primary Care Provider [phone] REASON FOR VISIT f/u appointments- Encounters Encounter Location Date Provider Diagnosis [facility] [address] [place] [address] 09/03/2024 Ramos Tang Plan Of Treatment Next Appt Details Provider Name:Yudith Yeboahla , 03/04/2025 01:00:00 PM, [address] [place], [address], Progress Notes * Deon PHOENIX ADOB: [birth year] (58 yo M)Acc No.[id number]:09/03/2024 Patient: Deon TY :1965 A ge:58 Y S ex:Male Address:[address] [place] [address], [phone] * true * Date: Generated for Printi ng/Faxing/eTransmitting on: 0 12/29/2024 03:11 PM EDT
--- OUTSIDE RECORDS SUMMARY | 2024-11-05 05:24 | XMS_ITS ---
Author Organization [facility] in [place] Address [address] [place] [address] Care Team Providers Care Maintenance Supervisor Name Role Phone Ramos Tang Primary Care Provider REASON FOR VISIT labs Encounters Encounter Location Date Provider Diagnosis [facility] [address] [place] [address] 11/05/2024 Ramos Tang Plan Of Treatment Next Appt Details Provider Name:Yudith Escoto , 03/04/2025 01:00:00 PM, [address] [place], [address], Progress Notes * PHOENIXDeon MAIER ADOB: [birth year] (59 yo M)Acc No.[id number]:11/05/2024 Patient: Deon TY :1965 A ge:59 Y S ex:Male Address:[address] [place] [address], [phone] * true * Date: Generated for Printi ng/Faxing/eTransmitting on: 0 12/29/2024 03:11 PM EDT
[2024-12-29 15:10] VITALS: BP 135/84; PULSE 96; TEMP 37.1; O2SAT 98; BMI 28.2
--- OUTSIDE RECORDS SUMMARY | 2024-12-29 15:11 | XMS_ITS | Encounter Summary ---
Author Organization [facility] Address [facility]-[id number] [address] [place] [address] Care Team Providers Care Pig Iron Loader Name Role Phone Aries Tang MD Primary Care Provider [phone] Encounter Details Date Type Department Care Team (Late st Contact Info) Description 07/15/2024 Telephone [facility] - ENT [address] [facility] [place] [address] No Pcp, [place] [address] Social History Tobacco Use Types Packs/Day Years Used Date Smoking Tobacco: Never Assessed Childcare Answer Date Recorded Childcare Unknown 12/11/2018 Employment Answer Date Recorded Employment Unknown 12/11/2018 Hunger Screening Answer Date Recorded Within the past 12 months we worried whether our food would run out before we got money to buy more. Never True 07/19/2024 Within the past 12 months th e food we bought just didn't last and we didn't have money to get more. Never True 07/19/2024 Sex and Gender Information Value Date Recorded Sex Assigned at Not on file Legal Sex Male 8:21 PM EDT Gender Identity Not on file Sexual Orientation Not on file documented as of this encounter Miscellaneous Notes * Telephone Encounter - Michelle Neri - 07/15/2024 8:44 AM EST Lvm 07/15 to schedule appt. ===View-only below this line=== ----- Message ----- From: Deon Stratton MD Sent: 07/14/2024 6:22 AM EST To: Karmen Marks MA; Leyla Gray RN; * Team, Lets add this patient on for visit this week. He should have outside imaging from [facility]. Okay to double book. Do not double book Monday after 3:00 p.m.. but okay any other times this week. Thank you! Leonardo Stratton * Telephone Encounter - Michelle Neri - 07/15/2024 8:44 AM EST Patient is scheduled with Dr. Stratton on 07/16 at 9:30 am. documented in this encounter Plan of Treatment Not on file documented as of this encounter Visit Diagnoses Not on filedocumented in this encounter Care Teams Pig Iron Loader Relationship Specialty Start Date End Date Aries Tang MD [address] [place] [address] PCP - General Family Medicine 07/17/24 documented as of this encounter
--- OUTSIDE RECORDS SUMMARY | 2024-12-29 15:11 | XMS_ITS | Encounter Summary ---
Author Organization [facility] Address [id number] [address] [place] [address] Care Team Providers Care Cancer Spec Name Role Phone Aries Tang MD Primary Care Provider [phone] Encounter Details Date Type Department Care Team ([facility] st Contact Info) Description 07/18/2024 Orders Only [facility] [address] [place] [address] External, Scanning Provider Pain (Primary Dx) Social History Tobacco Use Types Packs/Day Years Used Date Smoking Tobacco: Unknown Childcare Answer Date Recorded Childcare Unknown 12/11/2018 [...] on file documented as of this encounter Plan of Treatment Not on file documented as of this encounter Visit Diagnoses Diagnosis Pain- Primary Generalized pain documented in this encounter Care Teams Cancer Spec Relationship Specialty Start Date End Date Aries Tang MD [address] [facility] [place] [address] PCP - General Family Medicine 07/17/24 documented as of this encounter
--- OUTSIDE RECORDS SUMMARY | 2024-12-29 15:11 | XMS_ITS | Encounter Summary ---
Author Organization [facility] tem Address [id number] [address] [place] [address] Care Team Providers Care Bioinformatics Associate Name Role Phone Aries Tang MD Primary Care Provider [phone] Encounter Details Date Type Department Care Team ([facility] st Contact Info) Description 07/17/2024 Telephone [facility] - ENT [address] [facility] [place] [address] Deon Stratton MD [address] [facility] [place] [address] Social History Tobacco Use Types Packs/Day Years [...] encounter Miscellaneous Notes * Telephone Encounter - Nicole Mistry - 07/17/2024 11:13 AM EST Patient called because he forgot to get a note for work when he was at his appointment on 07/16. Patient would like note sent to his email [email or web address] * Telephone Encounter - Catarina Christianson CNA - 07/17/2024 11:13 AM EST Called and LM with patient to verify date he returned/is returning to work. Will send note once he calls back documented in this encounter Plan of Treatment Not on file documented as of this encounter Visit Diagnoses Not on filedocumented in this encounter Care Teams Bioinformatics Associate Relationship Specialty Start Date End Date Aries Tang MD [address] [place] [address] PCP - General Family Medicine 07/17/24 documented as of this encounter
--- OUTSIDE RECORDS SUMMARY | 2024-12-29 15:11 | XMS_ITS | Clinical Summary ---
Author Organization [facility] Address [facility]-[id number] [address] [place] [address] Care Team Providers Care Neonatologist Name Role Phone Aries Tang MD Primary Care Provider [phone] Allergies No known active allergies Medications meloxicam (MOBIC) 15 mg tablet Take 1 tablet (15 mg total) by mouth daily with breakfast. Knows to hold until after surgery Active fluticasone propionate (FLONASE) 50 mcg/actuation nasal sprayIndication s:Nasal congestion Administer 2 sprays into each nostril in the morning. 16 g 11 5 Active azelastine (ASTELIN) 137 mcg (0.1 %) nasal sprayIndication s:Nasal congestion Administer 1 spray into each nostril in the morning and 1 spray before bedtime. Use in each nostril as directed. 30 mL 12 5 Active acetaminophen (TYLENOL EXTRA STRENGTH) 500 mg tablet Take 1 tablet (500 mg total) by mouth every 6 (six) hours as needed for pain. 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 Nasal congestion 07/18/2024 Encounters Date Type Department Care Team Description 11/08/2024 10:15 AM EDT Office Visit [facility] - ENT [address] [facility] [place] [address] Deon Stratton MD Malignant neoplasm of tonsil (CMS-HCC) (Primary Dx) 11/08/2024 Travel from Last 3 Months Family History Medical History Relation Name Comments No Known Problems Father No Known Problems Mother Relation Name Status Comments Father Mother Social History Tobacco Use Types Packs/Day Years Used Date Smoking Tobacco: Some Days Cigarettes 0.5 49.5 Started: 1975 Tobacco Cessation:Ready to Q uit: Not Asked; Counseling Given: Not Answered Comments:1 pk day for over 40 years Alcohol Use Standard Drinks/Week Comments Not Currently 0 (1 standard drink = 0.6 oz pur e alcohol) Childcare Answer Date Recorded Childcare Unknown 12/11/2018 [...] on file Sexual Orientation Not on file Last Filed Vital Signs Vital Sign Reading Time Taken Comments Blood Pressure 112/89 07/29/2024 12:25 PM EST Pulse 87 07/29/2024 12:25 PM EST Temperature 36.4 C (97.6 F) 08/09/2024 10:55 AM EST Respiratory Rate 18 11/08/2024 10:31 AM EDT Oxygen Saturation 92% 07/29/2024 12:30 PM EST Inhaled Oxygen Concentration - - Weight 83.5 kg (184 lb) 11/08/2024 10:31 AM EDT Height 172.7 cm (5' 8 ) 11/08/2024 10:31 AM EDT Body Mass Index 27.98 11/08/2024 10:31 AM EDT Plan of Treatment Health Maintenance Due Date Last Done Comments Tobacco Counseling 1965 Depression Screening 1977 Adult BMI Follow Up Plan 10/19/1983 Zoster (Shingles) Vaccine (1 of 2) 1984 Influenza Vaccine 03/03/2025 Adult BMI Screening 11/08/2025 11/08/2024 Tobacco Screening 11/08/2025 11/08/2024 DTaP,Tdap and Td Vaccines (2 - Td or Tdap) 10/31/2032 10/31/2022 Medical Devices Not on file Insurance ANTH Care Teams Neonatologist Relationship Specialty Start Date End Date Aries Tang MD [address] [place] [address] PCP - General Family Medicine 07/17/24
--- OUTSIDE RECORDS SUMMARY | 2024-12-29 15:11 | XMS_ITS | Encounter Summary ---
Author Organization [facility] Address [facility][id number] [address] [place] [address] Care Team Providers Care Research Hydraulic Engineer Name Role Phone Aries Tang MD Primary Care Provider [phone] Reason for Referral * Diagnostic Imaging (Routine) - Pending Review Specialty Diagnoses / Procedures Referred By Contac t Referred To Contact Radiology Diagnoses Pain Procedures CT low dose lung screening (Annual) [facility] [address] [place] [phone] Phone: tel: fax: Referral ID Status Reason Start Date Expiration Date V isits Requested Visits Authorized [id number] Pending Review 07/16/2024 07/16/2025 1 1 * Diagnostic Imaging (Routine) - Pending Review Specialty Diagnoses / Procedures Referred By Contac t Referred To Contact Radiology Diagnoses Pain Procedures NON [facility] PET CT WHOLE BODY [facility] [address] [place] [phone] Phone: tel: fax: Referral ID Status Reason Start Date Expiration Date V isits Requested Visits Authorized [id number] Pending Review 07/16/2024 07/16/2025 1 1 Encounter Details Date Type Department Care Team (Late st Contact Info) Description 07/16/2024 Orders Only [facility] [address] [place] [phone] Transcribe, Orders Support User Pain (Primary Dx) Social History Tobacco Use [...] on file documented as of this encounter Results * NON [facility] PET CT WHOLE BODY (06/17/2024 5:10 PM EST) us Scanning Provider External IMG PET ORDERABLES Fi nal Result * CT low dose lung screening (Annual) (06/03/2024 4:10 PM EST) us Scanning Provider External IMG CT ORDERABLES Fin al Result documented in this encounter Visit Diagnoses Diagnosis Pain- Primary Generalized pain documented in this encounter Care Teams Research Hydraulic Engineer Relationship Specialty Start Date End Date Aries Tang MD [address] [place] [address] PCP - General Family Medicine 07/17/24 documented as of this encounter
--- OUTSIDE RECORDS SUMMARY | 2024-12-29 15:11 | XMS_ITS | Encounter Summary ---
Author Organization [facility] tem Address [facility]-[id number] [address] [place] [address] Care Team Providers Care Driver Medic Name Role Phone Aries Tang MD Primary Care Provider [phone] Encounter Details Date Type Department Care Team (Late st Contact Info) Description 07/16/2024 Orders Only [facility] - [facility] [address] [facility] [place] [address] Ref Prov, [place] [address] Social History Tobacco Use Types Packs/Day Years [...] on file documented as of this encounter Procedures Procedure Name Priority Date/Time Associated Diagnosis Comments CT LOW DOSE LUNG SCREENING Routine 07/16/2024 9:[address] SKULL TO THIGH Routine 07/16/2024 9:[address] SKULL TO THIGH Routine 07/16/2024 9:15 AM EST documented in this encounter Results * CT low dose lung screening (Annual) (07/16/2024 9:17 AM EST) Anatomical Region Laterality Modality Body, Lung, Chest, Body Covera C omputed Tomography us Not In System Ref Prov IMG CT ORDERABLES Final R esult * PET CT skull to thigh (07/16/2024 9:16 AM EST) Anatomical Region Laterality Modality Nuc Med N/A Positron Emissio n Tomography (PET) us Not In System Ref Prov IMG PET ORDERABLES Final Result * PET CT skull to thigh (07/16/2024 9:15 AM EST) Anatomical Region Laterality Modality Nuc Med N/A Positron Emissio n Tomography (PET) us Not In System Ref Prov IMG PET ORDERABLES Final Result documented in this encounter Visit Diagnoses Not on filedocumented in this encounter Care Teams Driver Medic Relationship Specialty Start Date End Date Aries aTng MD [address] [place] [address] PCP - General Family Medicine 07/17/24 documented as of this encounter
--- OUTSIDE RECORDS SUMMARY | 2024-12-29 15:11 | XMS_ITS | Encounter Summary ---
Author Organization [facility] tem Address [id number] [address] [place] [address] Care Team Providers Care Numberer And Wirer Name Role Phone Aries Tang MD Primary Care Provider [phone] Encounter Details Date Type Department Care Team ([facility] st Contact Info) Description 07/18/[address] [facility] - MRI [address] [place] [phone] Yudith Escoto MD [address] [place] [address] [address] [place] [address] Inguinal lymphadenopathy (Primary Dx) Social History Tobacco Use Types [...] as of this encounter Visit Diagnoses Diagnosis Inguinal lymphadenopathy- Primary Enlargement of lymph nodes documented in this encounter Care Teams Numberer And Wirer Relationship Specialty Start Date End Date Aries Tang MD [address] [facility] [place] [address] PCP - General Family Medicine 07/17/24 documented as of this encounter
--- OUTSIDE RECORDS SUMMARY | 2024-12-29 15:11 | XMS_ITS | Encounter Summary ---
Author Organization [facility] tem Address [id number] [address] [place] [address] Care Team Providers Care Orthotic Technician Name Role Phone Aries Tang MD Primary Care Provider [phone] Reason for Visit * Reason Onset Date Comments Need office notes faxed 07/23/2024 Encounter Details Date Type Department Care Team (Late st Contact Info) Description 07/23/2024 Telephone [facility] - ENT [address] [place] [phone] Deon Stratton MD [address] [place] [address] Need office notes faxed Social History Tobacco Use Types Packs/Day Years Used Date Smoking Tobacco: Every Day Cigarettes 0.5 49.5 Started: 1975 Comments:1 pk day for over 4 0 years Alcohol Use Standard Drinks/Week Comments Not [...] * Telephone Encounter - Michelle Neri - 07/23/2024 10:[address] Yudith Escoto Office - Valentina called 07/23. Need office notes faxed to [phone]. Patient of Dr. Stratton. * Telephone Encounter - Karmen Marks MA - 07/23/2024 10:36 AM EST Faxed. documented in this encounter Plan of Treatment Not on file documented as of this encounter Visit Diagnoses Not on filedocumented in this encounter Care Teams Orthotic Technician Relationship Specialty Start Date End Date Aries Tang MD [address] [place] [address] PCP - General Family Medicine 07/17/24 documented as of this encounter
--- OUTSIDE RECORDS SUMMARY | 2024-12-29 15:11 | XMS_ITS | Clinical Summary ---
Author Organization [facility] Address [address] [facility] [place] [address] Care Team Providers Care Post Anesthesia Nurse Name Role Phone Aries Tang MD Primary Care Provider [phone] Allergies No known active allergies Medications No known medications Active Problems No known active problems Encounters Date Type Department Care Team Description 11/08/2024 Telephone [facility] [address] [place] [phone] Ene De La Torre RN Labs Only 10/31/2024 1:15 PM EDT Office Visit [facility] [address] [place] [facility] [phone] Kofi Fisher DO Left elbow pain; Left wrist pain; Acute gout of left wrist, unspecified cause 10/31/2024 12:55 PM EDT Ancillary Procedure [facility] [address] [place] [phone] 10/31/2024 11:00 AM EDT Ancillary Procedure [facility] [address] [place] [phone] 10/31/2024 Clinisync Result Encounter [facility] External Department Unsolicited Kofi Fisher DO 10/31/2024 Travel from Last 3 Months Social History Tobacco Use Types Packs/Day Years Used Date Smoking Tobacco: Every Day Cigarettes Smokeless Tobacco: Never Tobacco Cessation:Ready to Q uit: Not Asked; Counseling Given: Not Answered Alcohol Use Standard Drinks/Week Comments Defer 0 (1 standard drink = 0.6 oz pur e alcohol) Sex and Gender Information Value Date Recorded Sex Assigned at Not on file Legal Sex Male 6:54 PM EDT Gender Identity Not on file Sexual Orientation Not on file Last Filed Vital Signs Vital Sign Reading Time Taken Comments Blood Pressure - - Pulse - - Temperature 36.2 C (97.1 F) 11/13/2023 12:52 PM EDT Respiratory Rate - - Oxygen Saturation - - Inhaled Oxygen Concentration - - Weight 88.5 kg (195 lb) 10/31/2024 1:01 PM EDT Height 170.2 cm (5' 7 ) 10/31/2024 1:01 PM EDT Body Mass Index 30.54 10/31/2024 1:01 PM EDT Plan of Treatment Not on file Procedures Procedure Name Priority Date/Time Associated Diagnosis Comments [facility] MARIE W/REFLEX IF POS Routine 10/31/2024 2:00 PM EDT [facility] RF QUANT Routine 10/31/2024 2:00 PM EDT [facility] SED RATE AUTOMATED Routine 10/31/2024 2:00 PM EDT [facility] CRP Routine 10/31/2024 2:00 PM EDT OR ARTHROCENTESIS ASPIR&/INJ INTERM JT/BURS W/US Routine 10/31/2024 1:41 PM EDT Acute gout of left wrist, unspecified cause XR WRIST 3+ VIEWS LEFT Routine 12:54 PM EDT Left wrist pain XR ELBOW 1-2 VIEWS LEFT Routine 10/31/2024 10:59 AM EDT Left elbow pain from Last 3 Months Results * (ABNORMAL) [facility] SED RATE AUTOMATED (10/31/2024 2:00 PM EDT) ERYTHROCYTE SEDIMENTATION RATE:SURESH:PT:BLD:QN : 22(H) 0 - 19 mm/hr [facility] Blood 10/31/2024 2:00 PM EDT 10/31/2024 2:42 PM EDT Narrative [facility] - 10/31/2024 3:16 PM EDT Original Ordering Provider: DO Kofi Fisher us Kofi Fisher DO [facility] Final Result Performing Organization Address City/[facility]/ZIP Co de Phone Number [facility] * (ABNORMAL) [facility] RF QUANT (10/31/2024 2:00 PM EDT) [facility] RHEUMATOID FACTOR:ACNC:PT: SER/PLAS:QN: 213.4(H) <14.0 Internatio nal_Unit/m L [facility] Comment: Results confirmed on dilution. Performed at: [address] [id number] PhD Sharee Garcia Blood 10/31/2024 2:00 PM EDT 10/31/2024 3:21 PM EDT Narrative [facility] - 11/04/2024 1:07 PM EDT Original Ordering Provider: DO Kofi Fisher us Kofi Fisher DO [facility] Final Result Performing Organization Address [facility] Co de Phone Number [facility] * [facility] CRP (10/31/2024 2:00 PM EDT) [facility] C REACTIVE PROTEIN:MCNC:PT :SER/PLAS:QN: 1.5 <=1.9 mg/dL [facility] Blood 10/31/2024 2:00 PM EDT 10/31/2024 2:42 PM EDT Narrative [facility] - 10/31/2024 3:08 PM EDT Original Ordering Provider: DO Kofi Fisher Kofi Fisher DO [facility] Final Result Performing Organization Address City/[facility] Co de Phone Number [facility] * [facility] MARIE W/REFLEX IF POS (10/31/2024 2:00 PM EDT) [facility] NUCLEAR AB:PRTHR:PT:SE R:ORD: Negative Negative [facility] Comment: Performed at: [facility] [id number] PhD Sharee Garcia Blood 10/31/2024 2:00 PM EDT 10/31/2024 3:21 PM EDT Narrative [facility] - 11/04/2024 1:07 PM EDT Original Ordering Provider: DO Kofi Fisher us Kofi Fisher DO [facility] Final Result [facility] * OR ARTHROCENTESIS ASPIR&/INJ INTERM JT/BURS W/US (10/31/2024 1:41 PM EDT) Alycia Evangelista MA - 10/31/2024 1:41 PM EDT Alycia Castelan MA 11/05/2024 7:06 AM M Inj/Asp: bilateral radiocarpal on 10/31/2024 1:41 PM Indications: diagnostic evaluation Details: 24 G needle, ultrasound-guided Medications (Right): 6 mg betamethasone acetate-betamethasone sodium phosphate 6 (3-3) MG/ML Medications (Left): 6 mg betamethasone acetate-betamethasone sodium phosphate 6 (3-3) MG/ML Outcome: tolerated well, no immediate complications Consent was given by the patient. us Kofi Fisher DO IN CLINIC/BEDSIDE ORDERABLES Final Result * XR wrist 3+ views left (10/31/2024 12:54 PM EDT) Anatomical Region Laterality Modality Upper Extremities, Wrist Left Radiogr aphic Imaging Narrative 11/05/2024 7:08 AM EDT Imaging Result: X-rays and imaging permanently saved to the patient's record were reviewed taken of the left wrist three views AP, lateral and oblique show mild to moderate degenerative changes. us Kofi Fisher DO IMG XR PROCEDURES Final Resu lt * XR elbow 1 or 2 views left (10/31/2024 10:59 AM EDT) Anatomical Region Laterality Modality Upper Extremities, Elbow Left Radiogr aphic Imaging Narrative 11/05/2024 7:08 AM EDT Imaging Result: Two views of the left elbow, AP and lateral, show mild degenerative changes. No fracture, dislocation, tumor or infection seen. No sign of supracondylar process. us Kofi Fisher DO IMG XR PROCEDURES Final Resu lt from Last 3 Months Insurance [facility] Care Teams Post Anesthesia Nurse Relationship Specialty Start Date End Date Aries Tang MD PCP - General Family Medicine 10/12/23
--- OUTSIDE RECORDS SUMMARY | 2024-12-29 15:12 | XMS_ITS | Encounter Summary ---
Author Organization [facility] Address [address] [place] [place] [address] Care Team Providers Care Pony Cylinder Press Operator Name Role Phone Aries Tang MD Primary Care Provider [phone] Encounter Details Date Type Department Care Team (Late st Contact Info) Description 12/11/2023 Orders Only [facility] [address] [place] [phone] Kofi Fisher, DO [address] [place] [address] Dysfunction of right rotator cuff (Primary Dx) Social History Tobacco Use Types Packs/Day Years Used Date Smoking Tobacco: Every Day Cigarettes Smokeless Tobacco: Never Alcohol Use Standard Drinks/Week Comments Defer 0 [...] as of this encounter Visit Diagnoses Diagnosis Dysfunction of right rotator cuff- Primary documented in this encounter Care Teams Pony Cylinder Press Operator Relationship Specialty Start Date End Date Aries Tang MD PCP - General Family Medicine 10/12/23 documented as of this encounter
--- OUTSIDE RECORDS SUMMARY | 2024-12-29 15:12 | XMS_ITS | CCD ---
Author Organization [facility] CliniSyut Care Team Providers Care Dirt Bike Racer Name Role Phone BETTYE SHETH Admitting Unavailable SAFIA ARIES Primary Care Unavailable BENJAMIN MORGAN Consulting UnavailWil Gleason, BETTYE Attending Unavailable WEI QUEZADA Consulting Unavailable KAILA Gleason, BETTYE Admitting Unavailable HOY, ARIES Primary Care Unavailable KAILA Gleason, BETTYE Attending Unavailable BETTYE SHETH Consulting Unavailable Aries Tang MD Primary Care Provider [phone] Unavailable Primary Care Provider UnavailAries Garcia MD Primary Care Provider [phone] ARIES TANG Referring Unavailable ARIES TANG M Primary Care Unavailable JOHNNA, LILY DOLAN Referring Unavailable SAFIA, ARIES M Primary Care Unavailable Aries Tang Primary Care Physician [phone] Aries Tang MD Primary Care Provider [phone] DEVIN HAYES Referring Unavailable HAYESDEVIN Attending Unavailable SANDOVAL BARTLETT Attending Unavailable DHRUV, SANDOVAL Howe Referring Unavailable HAYES, DEVIN Keller Attending Unavailable HAYES, DEVIN Keller Referring Unavailable HAYES, DEVIN Keller Attending Unavailable HAYES, DEVIN Keller Referring Unavailable DHRUV, SANDOVAL Howe Attending Unavailable DHRUV, SANDOVAL Howe Referring Unavailable HILLS, SANDOVAL Howe Referring Unavailable SANDOVAL BARTLETT Attending Unavailable Dania TIJERINA Attending Unavailable Rl GATES Attending Unavailable HayesDevin Admitting Unavailable HayesDevin Attending Unavailable Aries Tang MD Primary Care Provider [phone] LILY STRATTON Attending Unavailable SAFIA, ARIES M Referring Unavailable HOY, ARIES M Primary Care Unavailable JOHNNALILY Attending Unavailable SAFIA, ARIES M Referring Unavailable HOMarcio, ARIES M Primary Care Unavailable REJI PELAEZ Attending Unavaila ble ARIES TANG M Primary Care Unavailable JOHNNA, MOHAMAD RADEDRA Admitting Unavailable JOHNNA, MOHAFSHAN DOLAN Attending Unavailable HOY, ARIES M Primary Care Unavailable LILY STRATTON Referring Unavailable ARIES TANG Primary Care Unavailable LILY STRATTON Attending Unavailable YUDITH ESCOTO Referring Unavailable Devin Hayes Attending Unavailable Devin Hayes Admitting Unavailable Allergies Allergy Classification Reported Allergen(s) Allergy Type Date of Onset Reaction(s) Facility (2 sources) No Known Medication Allergies; Translations: [No Known Medication Allergies] Propensity to adverse reactions (disorder) [facility] Repository Medications Current Medications Medication Drug Class(es) Dates Sig (Normalized) Sig (Original) acetaminophen 500 mg oral tablet (5 sources) take 1 tablet by mouth every six hours as needed for pain acetaminophen (TYLENOL EXTRA STRENGTH) 500 mg tablet Take 1 tablet (500 mg total) by mouth every 6 (six) hours as needed for pain. Active azelastine hydrochloride 0.137 mg/actuat metered dose nasal spray (8 sources) Histamine-1 Receptor Antagonist Start: 07-16-2024 take 1 spray(s) nasal route in the morning azelastine (ASTELIN) 137 mcg (0.1 %) nasal spray Indications: Nasal congestion Administer 1 spray into each nostril in the morning and 1 spray before bedtime. Use in each nostril as directed. 30 mL 12 07/16/2024 Active fluticasone propionate 0.05 mg/actuat metered dose nasal spray (8 sources) Corticosteroid Start: 07-16-2024 take 2 spray(s) nasal route in the morning fluticasone propionate (FLONASE) 50 mcg/actuation nasal spray Indications: Nasal congestion Administer 2 sprays into each nostril in the morning. 16 g 11 07/16/2024 Active meloxicam 15 mg oral tablet (13 sources) Nonsteroidal Anti-inflammatory Drug Start: 05-06-2024 End: [...] meals. 60 tablet 1 02/23/2024 08/21/2024 Active Completed/Discontinued Medications Medication Drug Class(es) Dates Sig (Normalized) Sig (Original) betamethasone 3 mg/ml / betamethasone acetate 3 mg/ml injectable suspension (8 sources) Corticosteroid Start: 10-31-2024 End: 10-31-2024 betamethasone acetate-betamethason e sodium phosphate (Celestone) injection 6 mg Start: 10-31-2024 End: 10-31-2024 6 mg, Intra-articular, Once PRN Procedure, Starting on [place] 10/31/24 at 1341, For 1 dose Problems Active Problems Problem Classification Problem Date Documented Date Episodic/Chronic Cancer of head and neck (15 sources) Malignant tumor of tonsil; Translations: [Malignant neoplasm of tonsil, unspecified] Onset: 07-18-2024 07-16-2024 Chronic E Codes: Struck by; against (1 source) Striking against or struck by other objects, initial encounter; Translations: [STRIKING AGNST/STRUCK OTH OBJ INIT] Onset: 11-02-2022 Episodic Gout and other crystal arthropathies (2 sources) 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; Translations: [Gout, unspecified] 10-31-2024 Chronic Headache; including migraine (4 sources) Headache; including migraine; Translations: [HEADACHE UNSPECIFIED] Onset: 09-15-2022 Other non-traumatic joint disorders (2 sources) Pain in right shoulder; Translations: [Pain in joint, shoulder region] 05-06-2024 Episodic Other non-traumatic joint disorders (2 sources) Bilateral wrist pain; Translations: [Pain in right wrist] 05-06-2024 Episodic Other non-traumatic joint disorders (2 sources) Pain in elbow; Translations: [Pain in left elbow] 10-31-2024 Episodic Other non-traumatic joint disorders (2 sources) Pain of left wrist; Translations: [Pain in left wrist] 10-31-2024 Episodic Other upper respiratory infections (1 source) Acute sinusitis, unspecified; Translations: [ACUTE SINUSITIS UNSPECIFIED] Onset: 09-19-2022 Episodic Residual codes; unclassified (1 source) Pain, unspecified; Translations: [Pain, unspecified] Onset: 07-16-2024 Episodic Substance-related disorders (2 sources) Nicotine dependence, cigarettes, uncomplicated; Translations: [Smoker] Onset: 11-02-2022 10-31-2022 Chronic Comment on above: Added secondary to d ocumentation in Social History. Superficial injury; contusion (5 sources) Abrasion of left hand, initial encounter; Translations: [Contusion of left hand, initial encounter] Onset: 11-01-2022 Episodic Unclassified (1 source) Post-op Onset: 08-09-2024 Past or Other Problems Problem Classification Problem Date Documented Date Episodic/Chronic Other connective tissue disease (1 source) Disorder of rotator cuff; Translations: [Unspecified disorder of synovium and tendon, right shoulder] 02-23-2024 Episodic Other upper respiratory disease (7 sources) Nasal congestion; Translations: [Nasal congestion] Onset: 07-18-2024 07-16-2024 Episodic Other upper respiratory disease (1 source) Nasal congestion; Translations: [Nasal congestion] Onset: 07-18-2024 Episodic Residual codes; unclassified (2 sources) History of arthroscopic procedure on shoulder; Translations: [Other specified postprocedural states] 02-26-2024 Episodic Unclassified (1 source) Patient encounter status 07-20-2024 Unclassified (2 sources) 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 Performed at: [facility] [id number] PhD Sharee Garcia Performed By: #### 1 [id number] #### [facility] [address] [place] [address] CHEMISTRYOrdered By: SYSTEM SYSTEM on 10-31-2024 CRP [Mass/Vol] 1.5 mg/dL Normal <=1.9mg/dL Remisol em [facility] CRPon 10-31-2024 [facility] C REACTIVE PROTEIN:MCNC:PT:SER/ PLAS:QN: 1.5 mg/dL NINF - 1.9 mg/dL [facility] Original Ordering Provider: DO Devin Hayes [facility] HEMATOLOGYOrdered By: Janell Murcia on 10-31-2024 ESR (Bld) [Velocity] 22 mm/h High 0 - 19 mm/hr [facility] HemeAutoSS No Panel Informationon 10-31 Alycia Castelan MA 11/05/2024 7:06 AM M Inj/Asp: bilateral radiocarpal on 10/31/2024 1:41 PM Indications: diagnostic evaluation Details: 24 G needle, ultrasound-guided Medications (Right): 6 mg betamethasone acetate-betamethasone sodium phosphate 6 (3-3) MG/ML Medications (Left): 6 mg betamethasone acetate-betamethasone sodium phosphate 6 (3-3) MG/ML Outcome: tolerated well, no immediate complications Consent was given by the patient. [facility] Flow cytometry specialist re view [place] (Unsp spec) [Interp]on 07-29-2024 FLOW CYTOMETRY TISSUE/FLUID, NON CSF/NON BAL SEE SEPARATE REPORT Normal [facility] Comment on above: Result Comment: REVI EWED BY SAMMY XIE M.D. Performed By: #### 6 [id number] #### [facility] ([id number]) [address], [address] [place] [address] FLOW CYTOMETRY TISSUE/FLUID, NON CSF/NON BAL SEE SEPARATE REPORT Normal [facility] Comment on above: Result Comment: REVI EWED BY SAMMY XIE M.D. Performed By: #### 6 [id number] #### [facility] ([id number]) [address] [place] [address], [address] [place] [address] Surgical Pathologyon 025 Surgical Pathology Normal [facility] Comment on above: Result Comment: [facility] [address] [place] [address] Surgical Pathology Consultation ADDENDUM ID Patient Name:DEON PHOENIX:1965 (Age: 58)Gender:MTaken:07/29/2024Reported:08/01/2024Physician(s):Lily Stratton MD ([phone])Copy To: Rec. #:[id number]: #[id number] Final Pathologic Diagnosis 1. Nasopharynx, biopsy: BENIGN squamous mucosa with reactive dense lymphoid tissue. See comment. No granuloma, dysplasia or neoplasm. 2. Left palatine tonsil biopsy: BENIGN squamous mucosa with reactive dense lymphoid tissue. See comment. No granuloma, dysplasia or neoplasm. Comment: To help rule out the possibility of a lymphoid neoplasm, immunohistochemistry (with appropriate controls was performed on both parts of the specimen revealing the following results. The lymphoid cells are composed of CD3/CD5 positive T-cell areas and CD20 positive B-cell areas in a normal distribution. Bcl-2 and BCL6 show a normal staining pattern. CD10 shows nonspecific faint staining in the follicles. CD21 highlights the follicular dendritic meshwork. DIPESH by in situ hybridization (LIZETH) in specimen part 1 (with appropriate controls) is negative.These findings rule out the possibility of a lymphoid neoplasm. Clinical correlation is suggested. The case was reviewed in intradepartmental consultation. Report Electronically Signed Out wak/08/01/2024Jesus Armas MD Flow Cytometry-Surg/BM/NG Date Reported: 08/03/2024 NASOPHARYNX Sparse lymphoid population with partial loss of CD5 and CD7, otherwise unremarkable. The specimen is hypocellular with a sparse lymphoid component. Immunophenotypic analysis of the lymphoid cells demonstrates a T-cell population with partial loss of CD5 and CD7. The findings are non-specific and not diagnostic of a T-cell neoplasm. If a T-cell neoplasm is suspected clinically, T-cell receptor gene rearrangement studies are recommended. No monoclonal lymphoid population is detected. Immunophenotyping antibodies tested: CD3, CD5, CD7, CD10, CD19, CD20, CD23, CD45, [place], and Lambda. LEFT PALATINE TONSIL Sparse lymphoid population with partial loss of CD5 and CD7, otherwise unremarkable. The specimen is hypocellular with a sparse lymphoid component. Immunophenotypic analysis of the lymphoid cells demonstrates a T-cell population with partial loss of CD5 and CD7. The findings are non-specific and not diagnostic of a T-cell neoplasm. If a T-cell neoplasm is suspected clinically, T-cell receptor gene rearrangement studies are recommended. No monoclonal lymphoid population is detected. Immunophenotyping antibodies tested: CD3, CD5, CD7, CD10, CD19, CD20, CD23, CD45, [place], and Lambda. Immunophenotyping Comment: Immunophenotyping has been used in this diagnostic evaluation. This test was developed and its performance characteristics determined by the [facility] Department. It has not been cleared or approved by the U.S. Food and Drug Administration. The FDA has determined that such clearance or approval is not necessary. This test is used for clinical purposes. It should not be regarded as investigational or for research. This laboratory is certified under the Clinical Laboratory Improvement Amendments of 1988 ( CLIA ) as qualified to perform high-complexity clinical testing. Interpretation performed at [facility], [address] [place] [id number], License number: [id number]. Electronically Signed Out Sammy Xie MD Addendum (PHS) Date Reported: 08/02/2024 In both parts of the specimen, additional immunohistochemistry (with appropriate controls) for AE1/AE3 and p40 is negative, ruling out the possibility of invasive carcinoma. Electronically Signed Out Jesus Armas MD Interpretation performed at [facility], [address] [place] [address], License number: [id number]. Clinical History Malignant neoplasm of tonsil, nasal congestion. Gross Description 1. Received fresh labeled PHOENIX, nasopharynx biopsy are 2 pink-ospina soft tissue bits, 0.2 cm and 0.4 cm in greatest dimension. A portion is submitted in RPMI media for flow cytometry. Two alcohol fixed touch prep slides are prepared for H&E. Two air dried touch prep slides are prepared for Giemsa stains. A service representative section is fixed in 10% formalin and submitted in cassette a. The remaining tissue is fixed in B+ and submitted in cassette B. (2,ns,[id number], M6) . 2. Received fresh labeled PHOENIX, left palatine tonsil biopsy are 5 pink-ospina soft tissue bits, 0.2 cm to 0.6 cm in greatest dimension. A portion is submitted in RPMI media for flow cytometry. Two alcohol fixed touch prep slides are prepared for H&E. Two air d (more content not included)... CBC without diffon Erythrocyte distribution width (RBC) [Ratio] 13.5 % 11.5 - 15.0 % [facility] Hematocrit (Bld) [Volume fraction] 42.3 % 39 - 49 % [facility] Hemoglobin (Bld) [Mass/Vol] 14.3 g/dL 13.0 - 17.0 g/dL [facility] MCH (RBC) [Entitic mass] 30.2 pg 27 - 34 pg [facility] MCHC (RBC) [Mass/Vol] 33.8 g/dL 32 - 36 g/dL [facility] MCV (RBC) [Entitic vol] 90 fL 80 - 100 fL [facility] Platelet mean volume (Bld) [Entitic vol] 7.6 fL 7 - 12 fL [facility] Platelets (Bld) [#/Vol] 270 10*3/uL [facility] RBC (Bld) [#/Vol] 4.73 10*6/uL [facility] WBC corrected for nucl RBC Auto (Bld) [#/Vol] 7.6 [facility] COMPLETE BLOOD COUNTon 07-19 Erythrocyte distribution width (RBC) [Ratio] 13.5 % Normal 11.5-15.0 [facility] Comment on above: Performed By: #### C BC #### [facility] ([id number]) [address], [address] [place] [address] Hematocrit (Bld) [Volume fraction] 42.3 % Normal 39-49 [facility] Comment on above: Performed By: #### C BC #### [facility] ([id number]) [address], [address] [place] [address] Hemoglobin (Bld) [Mass/Vol] 14.3 g/dL Normal 13.0-17.0 [facility] Comment on above: Performed By: #### C BC #### [facility] ([id number]) [address], [address] [place] [address] MCH (RBC) [Entitic mass] 30.2 pg Normal 27-34 [facility] Comment on above: Performed By: #### C BC #### [facility] ([id number]) [address], [address] [place] [address] MCHC (RBC) [Mass/Vol] 33.8 g/dL Normal 32-36 [facility] Comment on above: Performed By: #### C BC #### [facility] ([id number]) [address], [address] [place] [address] MCV (RBC) [Entitic vol] 90 fL Normal 80-100 [facility] Comment on above: Performed By: #### C BC #### [facility] ([id number]) [address], [address] [place] [address] Platelet mean volume (Bld) [Entitic vol] 7.6 fL Normal 7-12 [facility] Comment on above: Performed By: #### C BC #### [facility] ([id number]) [address], [address] [place] [address] Platelets (Bld) [#/Vol] 270 10*3/uL Normal 150-450 [facility] Comment on above: Performed By: #### C BC #### [facility] ([id number]) [address], [address] [place] [address] RBC COUNT 4.73 X10E12/L Normal 4.10-5.70 [facility] Comment on above: Performed By: #### C BC #### [facility] ([id number]) [address], [address] [place] [address] WBC (Bld) [#/Vol] 7.6 10*3/uL Normal 4.0-11.0 [facility] Comment on above: Performed By: #### C BC #### [facility] ([id number]) [address], [address] [place] [address] ECG 12 leadon 07-19-2024 TRACEMASTERVUE [facility] CT NECK SOFT TISSUE W CONTon 07-18-2024 CT NECK SOFT TISSUE W CONT CT NECK SOFT TISSUE W CONT CT NECK SOFT TISSUE W CONT INDICATION: Tonsil, adenoids disorder. Pharyngeal mass.. TECHNIQUE: CT of the neck performed following the uneventful administration of 100 mL Omnipaque-300 intravenous contrast. Multiplanar reformats were created and reviewed. All CT scans at this facility use dose modulation, iterative reconstruction, and/or weight based dosing when appropriate to reduce radiation dose to as low as reasonably achievable. COMPARISON: 06/17/2024 FINDINGS: Prominent midline nasopharyngeal tissue, 1.4 cm. Subtle asymmetric uniform hyperenhancement left fossa of Rosenmuller; these areas are much more conspicuous metabolically on recent PET than on prior exam. Mild asymmetric fullness left palatine tonsil when compared to the right. No gross soft tissue infiltration. Cameron tonsilloliths. 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 Normal parotid, submandibular glands, thyroid. Severe emphysema. Patent major neck vasculature. Unremarkable visualized intracranial compartment, orbits, paranasal sinuses, temporal bone structures. Straightening of the typical cervical lordosis. No aggressive osseous lesions. IMPRESSION: Midline nasopharyngeal mucosal hyperenhancing lesion measures 1.4 cm. No gross local soft tissue infiltration or skull base invasion. Similar subtle mucosal prominence of left fossa of Rosenmuller and asymmetric soft tissue fullness of the left palatine tonsil. These findings are mature conspicuous metabolically, as seen on 06/17/2024. No gross cervical adenopathy. Constellation of findings are nonspecific but may relate to hematogenous malignancy [such as lymphoma] Finalized by Artemio Johnson MD on 07/18/2024 11:05 AM Normal [facility] No Panel Informationon 05-06 Radiology Study observation (narrative) [facility] XR Shoulder - left 2 Viewson 05-06-2024 [...] of bony tumor or acute fracture seen. [facility] Spr[facility] XR Shoulder - right 2 Viewso n 05-06-2024 [facility] Imaging Result: AP Grashey and scapular Y-view in the office taken today saved to the permanent record shows post surgical change with acromioplasty/partial distal clavulectomy with appropriate coplaning. No acute fracture, dislocation, tumor or infection seen. He also has early glenohumeral arthritic findings to the inferior pole of the acetabulum. No evidence of bony tumor acute fracture seen. [facility] MR SHOULDER RIGHT WO IV CONT Catracho 11-14-2023 MR SHOULDER RIGHT WO IV CONTRAST [...] WEI QUEZADA Date: 2022-11-01 15:45 Normal [facility] INFLUENZA A AND B AGon 09-15 INFLUANEGH SEE BELOW Normal [facility] Comment on above: Result Comment: Nega tive for Flu A protein angiten. Infection due to Flu A cannot be ruled out. Flu A angiten in the sample may be below the detection limit of the test. Performed By: #### I NFLUAB #### [facility] [address] [place] [address] Dr. Meghana Hernandes [facility] SEE BELOW Normal [facility] Comment on above: Result Comment: Nega tive for Flu B protein antigen. Infection due to Flu B cannot be ruled out. Flu B antigen in the sample may be below the detection limit of the test. Performed By: #### I NFLUAB #### [facility] [address] [place] [address] Dr. Meghana Hernandes INFLUENZA A AG Negative Normal NEGATIVE SEE COMMENT [facility] Comment on above: Performed By: #### I NFLUAB #### [facility] [address] [place] [address] Dr. Meghana Hernandes INFLUENZA B AG Negative Normal NEGATIVE SEE COMMENT [facility] Comment on above: Performed By: #### I NFLUAB #### [facility] [address] [place] [address] Dr. Meghana Hernandes Vital Signs Date Time Vital Sign Value Performing Clinician Facility 11-08-2024 10:31-0400 Body height 172.7 cm Lily Stratton MD Work Phone: [facility] 11-08-2024 10:31-0400 Body mass index (BMI) [Ratio] 27.98 kg/m2 Lily Stratton MD Work Phone: [facility] 11-08-2024 10:31-0400 Body weight 83.46 kg Lily Stratton MD Work Phone: [facility] 11-08-2024 10:31-0400 Respiratory rate 18 /min Lily Stratton MD Work Phone: [facility] 10-31-2024 13:010400 Body height 170.2 cm Devin Hayes DO Work Phone: [facility] 10-31-2024 13:01-0400 Body mass index (BMI) [Ratio] 30.54 kg/m2 Devin Hayes DO Work Phone: [facility] 10-31-2024 13:01-0400 Body weight 88.45 kg Devin Hayes DO Work Phone: [facility] 08-09-2024 10:55-0500 Body height 172.7 cm Lily Stratton MD Work Phone: [facility] 08-09-2024 10:55-0500 Body mass index (BMI) [Ratio] 28.1 kg/m2 Lily Stratton MD Work Phone: [facility] 08-09-2024 10:55-0500 Body temperature 97.59 [degF] Lily Stratton MD Work Phone: [facility] 08-09-2024 10:55-0500 Body weight 83.83 kg Lily Stratton MD Work Phone: [facility] 07-19-2024 08:17-0500 Body height 172.7 cm [facility] 07-19-2024 08:17-0500 Body mass index (BMI) [Ratio] 27.86 kg/m2 [facility] 07-19-2024 08:17-0500 Body temperature 97 [degF] [facility] [address] [facility] 07-19-2024 08:17-0500 Body weight 83.1 kg [facility] 07-19-2024 08:17-0500 Diastolic blood pressure 83 mm[Hg] [facility] 07-19-2024 08:17-0500 Heart rate 95 /min [facility] 07-19-2024 08:17-0500 Respiratory rate 16 /min [facility] [address] [facility] 07-19-2024 08:17-0500 SaO2% (BldA) [Mass fraction] 99 % [facility] 07-19-2024 08:17-0500 Systolic blood pressure 121 mm[Hg] [facility] 07-16-2024 09:05-0500 Body height 170.2 cm Lily Stratton MD Work Phone: [facility] 07-16-2024 09:05-0500 Body mass index (BMI) [Ratio] 28.22 kg/m2 Lily Stratton MD Work Phone: [facility] 07-16-2024 09:05-0500 Body temperature 97.3 [degF] Lily Stratton MD Work Phone: [facility] 07-16-2024 09:05-0500 Body weight 81.74 kg Lily Stratton MD Work Phone: [facility] 05-06-2024 10:26-0500 Body height 170.2 cm [facility] Work Phone: [facility] 02-26-2024 08:45-0400 Body height 170.2 cm [facility] Work Phone: [facility] 02-26-2024 08:45-0400 Body mass index (BMI) [Ratio] 29.6 kg/m2 [facility] Work Phone: [facility] 02-26-2024 08:45-0400 Body weight 85.73 kg [facility] Work Phone: [facility] Encounters Encounter Date Encounter Type Care Provider Facility Start: 11-08-2024 End: 11-08-2024 Office outpatient visit 15 minutes Lily Stratton MD Work Phone: [facility] Comment on above: Malignant neoplasm o f tonsil ([facility]) (Primary Dx) Start: 11-08-2024 End: 11-08-2024 ambulatory LILY STRATTON [facility] Start: 10-31-2024 End: 10-31-2024 Clinisync Result Encounter Devin Hayes DO Work Phone: [email or web address] External Department Unsolicited Start: 10-31-2024 End: 10-31-2024 Clinisync Result Encounter Devin Hayes DO Work Phone: [facility] External Department Unsolicited Start: 10-31-2024 End: 10-31-2024 Patient encounter procedure Devin Hayes [facility] Comment on above: Left elbow pain; Left wrist pain; Acute gout of left wrist, unspecified cause Start: 10-31-2024 End: 10-31-2024 ambulatory DEVIN HAYES Not Available Start: 10-31-2024 End: 10-31-2024 ambulatory DEVIN HAYES Not Available Start: 10-21-2024 End: 10-21-2024 ambulatory Rl SECRETARY Facility:[facility] Start: 08-09-2024 End: 08-09-2024 Postop follow up visit related to original px Lily Stratton MD Work Phone: [facility] Comment on above: Malignant neoplasm o f tonsil (CMS-HCC) (Primary Dx) Start: 08-09-2024 End: 08-09-2024 ambulatory [facility] Start: 08-07-2024 End: 08-07-2024 ambulatory Leyla Gray RN [facility] Start: 07-29-2024 End: 07-29-2024 Evaluation and management of inpatient REJITJ SELBY [facility] Start: 07-29-2024 End: 07-29-2024 Evaluation and management of inpatient [facility] Start: 07-22-2024 End: 07-22-2024 Telephone encounter Lily Stratton MD Work Phone: [facility] Start: 07-19-2024 End: 07-19-2024 Admission to establishment [address] Start: 07-19-2024 End: 07-19-2024 Patient encounter procedure [facility] Comment on above: Preop testing (Prima ry Dx); Encounter for preadmission testing Start: 07-19-2024 End: 07-19-2024 Patient encounter status [facility] [address] [place] [address] System Start: 07-19-2024 End: 07-19-2024 ambulatory [facility] Start: 07-19-2024 Encounter for other preprocedural examination [facility] Start: 07-18-2024 ambulatory ARIES Mai [facility] Start: 07-18-2024 End: 07-18-2024 Telephone encounter Lily Stratton MD Work Phone: [facility] Start: 07-18-2024 End: 07-18-2024 ambulatory [facility] Start: 07-16-2024 End: 07-16-2024 Office outpatient new 45 minutes Lily Stratton MD Work Phone: [facility] Comment on above: Nasal congestion (Pr imary Dx); Malignant neoplasm of tonsil ([facility]) Start: 07-16-2024 End: 07-16-2024 Orders Only Leyla Gray RN [facility] Comment on above: Malignant neoplasm o f tonsil ([facility]) (Primary Dx) Start: 05-14-2024 End: 05-14-2024 [facility] Start: 05-06-2024 End: 05-06-2024 Patient encounter procedure Sandoval Bartlett PA Work Phone: [facility] Comment on above: Bilateral shoulder p ain, unspecified chronicity (Primary Dx); Bilateral wrist pain Start: 05-06-2024 End: 05-06-2024 ambulatory SANDOVAL BARTLETT Not Available Start: 02-26-2024 End: 02-26-2024 Bamboo [...] ORTHO Start: 12-26-2023 End: 12-26-2023 ambulatory DEVIN Keller HAYES Not Available Start: 12-05-2023 End: 12-05-2023 ambulatory DEVIN Keller HAYES Not Available Start: 11-14-2023 End: 11-14-2023 ambulatory SANDOVAL D HILLS Not Available Start: 11-13-2023 End: 11-13-2023 ambulatory SANDOVAL D HILLS Not Available Start: 11-01-2022 End: 11-01-2022 ambulatory BETTYE BRIGHT . Facility: Start: 09-15-2022 End: 09-15-2022 ambulatory BETTYE BRIGHT . Facility: Procedures Date Procedure Procedure Detail Performing Clinician Start: 10-31-2024 [facility] Devin Hayes DO Work Phone: Start: 10-31-2024 Arthrocentesis aspir &/inj interm jt/burs w/us Devin Hayes DO Work Phone: Start: 10-31-2024 Radex wrist complete minimum 3 views Devin Hayes DO Work Phone: Start: 10-31-2024 Radex elbow 2 views Anthony michael Hayes DO Work Phone: Start: 07-19-2024 Blood count complete automated Marlys Bond MD Work Phone: Start: 07-19-2024 Ecg routine ecg w/le ast 12 lds trcg only w/o i&r Jeni Guerrero [employer] Work Phone: Start: 05-06-2024 Radex shoulder compl ete minimum 2 views Sandoval D Dhruv PA Work Phone: BACK SURGERY 1 Devin rehman Comment on above: 08-25-2011 DISC SCRAP PED Plan of Treatment Date Care Activity Detail Author Start: 10-31-2032 DTaP,Tdap and Td Vaccines (2 - Td or Tdap) DTaP,Tdap and Td Vaccines (2 - Td or Tdap) [facility] Start: 08-09-2025 Adult BMI Screening Adult BMI Screening [facility] Start: 08-09-2025 Tobacco Screening Tobacco Screening [facility] Start: 07-29-2025 Adult BMI Screening Adult BMI Screening [facility] Start: 07-29-2025 Tobacco Screening Tobacco Screening [facility] Start: 07-19-2025 Adult BMI Screening Adult BMI Screening [facility] Start: 07-19-2025 Tobacco Screening Tobacco Screening [facility] Start: 07-16-2025 Adult BMI Screening Adult BMI Screening [facility] Start: 07-16-2025 Tobacco Screening Tobacco Screening [facility] Start: 03-03-2025 Influenza vaccination Influenza Vaccine [facility] Start: 11-08-2024 End: 11-08-2024 Patient encounter procedure 11/08/2024 10:15 AM EDT Office Visit [facility] [address] [facility] [place] [address] Lily Stratton MD [address] [facility] [place] [address] [facility] Start: 10-31-2024 End: 10-31-2025 C reactive protein [Mass/volume] in Serum or Plasma C-reactive protein Lab Routine Acute gout of left wrist, unspecified cause Expected: 10/31/2024 (Approximate), Expires: 10/31/2025 [facility] Comment on above: Expected: 10/31/2024 (Approximate), Expi res: 10/31/2025 Start: 10-31-2024 End: 10-31-2025 Erythrocyte sedimentation rate Sedimentation rate, automated Lab Routine Acute gout of left wrist, unspecified cause Expected: 10/31/2024 (Approximate), Expires: 10/31/2025 [facility] Work Phone: Comment on above: Expected: 10/31/2024 (Approximate), Expi res: 10/31/2025 Start: 10-31-2024 End: 10-31-2025 Nuclear Ab [Titer] in Serum by Immunofluorescence MARIE Lab Routine Acute gout of left wrist, unspecified cause Expected: 10/31/2024 (Approximate), Expires: 10/31/2025 [facility] Comment on above: Expected: 10/31/2024 (Approximate), Expi res: 10/31/2025 Start: 10-31-2024 End: 10-31-2025 Rheumatoid factor [Units/volume] in Serum or Plasma Rheumatoid factor Lab Routine Acute gout of left wrist, unspecified cause Expected: 10/31/2024 (Approximate), Expires: 10/31/2025 [facility] Comment on above: Expected: 10/31/2024 (Approximate), Expi res: 10/31/2025 Start: 10-31-2024 End: 10-31-2025 Urate [Mass/volume] in Serum or Plasma Uric acid Lab Routine Acute gout of left wrist, unspecified cause Expected: 10/31/2024 (Approximate), Expires: 10/31/2025 [facility] Comment on above: Expected: 10/31/2024 (Approximate), Expi res: 10/31/2025 Start: 08-09-2024 End: 08-09-2024 Patient encounter procedure 08/09/2024 11:00 AM EST Office Visit [facility] ENT [address] [facility] [place] [address] [place] [address] [place] [address] [place] [address] [facility] Start: 08-05-2024 End: 08-05-2024 Patient encounter procedure 08/05/2024 10:00 AM EST Appointment [facility] - Interventional Radiology [address] [place] [id number] Yudith Escoto MD [address] [place], [place] [address]y [address] [place] [address] [facility]ventional [facility] Start: 07-29-2024 End: 07-29-2024 Admission to same day surgery center 07/29/2024 10:30 AM EST - 07/29/2024 12:30 PM EST Surgery [facility] [address] [place] [address] [place] [address] Lily Stratton MD [address] [facility] [place] [address] ENDOSCOPIC DEBRIDEMENT NASAL - nasal endoscopy with biopsy [[id number] (CPT )] [facility] Comment on above: ENDOSCOPIC DEBRIDEMENT NASAL - nasal end oscopy with biopsy [[id number] (CPT )] Start: 07-29-2024 End: 07-29-2024 Laryngoscopy w/biopsy microscope/telescope DIRECT LARYNGOSCOPY Malignant neoplasm of tonsil (CMS-HCC) Nasal congestion 07/29/2024 10:30 AM EST [facility] Start: 07-29-2024 End: 07-29-2024 Nasal/sinus ndsc surg w/bx polypect/dbrdmt spx ENDOSCOPIC DEBRIDEMENT NASAL Malignant neoplasm of tonsil (CMS-HCC) Nasal congestion 07/29/2024 10:30 AM EST [facility] Start: 07-29-2024 Subsequent hospital visit by physician 07/29/2024 10:30 AM EST Hospital Encounter [facility] [address] [place] [address] [place] [address] Lily Stratton MD [address] [address] [facility] Start: 07-22-2024 End: 07-22-2024 Admission to same day surgery center 07/22/2024 11:00 AM EST - 07/22/2024 1:00 PM EST Surgery [facility] [address] [place] [address] [place] [address] Lily Stratton MD [address] [facility] [place] [address] ENDOSCOPIC DEBRIDEMENT NASAL - nasal endoscopy with biopsy [[id number] (CPT )] [facility] Comment on above: ENDOSCOPIC DEBRIDEMENT NASAL - nasal end oscopy with biopsy [[id number] (CPT )] Start: 07-22-2024 End: 07-22-2024 Laryngoscopy w/biopsy microscope/telescope DIRECT LARYNGOSCOPY Malignant neoplasm of tonsil (CMS-HCC) Nasal congestion 07/22/2024 11:00 AM EST [facility] Start: 07-22-2024 End: 07-22-2024 Nasal/sinus ndsc surg w/bx polypect/dbrdmt spx ENDOSCOPIC DEBRIDEMENT NASAL Malignant neoplasm of tonsil (CMS-HCC) Nasal congestion 07/22/2024 11:00 AM EST [facility] Start: 07-22-2024 Subsequent hospital visit by physician 07/22/2024 11:00 AM EST Hospital Encounter [address] [address] Lily Stratton MD [address] [facility] [place] [address] [facility] Start: 07-19-2024 End: 07-19-2024 Patient encounter procedure 07/19/2024 9:30 AM EST [facility] On [address] [address] [facility] Start: 07-18-2024 End: 07-18-2024 Patient encounter procedure 07/18/2024 11:00 AM EST Appointment [facility] [address] [place] [address] [facility] Start: 07-16-2024 End: 07-16-2025 CT Neck W contrast IV CT neck soft tissue with contrast Imaging STAT Malignant neoplasm of tonsil (CMS-HCC) Expected: 07/16/2024, Expires: 07/16/2025 [facility] Work Phone: Comment on above: Expected: 07/16/2024, Expires: Start: 03-03-2024 Influenza vaccination Influenza Vaccine [facility] Start: 02-26-2024 End: 02-26-2024 Patient encounter procedure [facility] Comment on above: Arrived Start: 1984 Administration of varicella zoster vaccine Zoster (Shingles) Vaccine (1 of 2) [facility] Start: 1984 DTaP,Tdap and Td Vaccines (1 - Tdap) DTaP,Tdap and Td Vaccines (1 - Tdap) [facility] Start: 10-19-1983 Adult BMI Follow Up Plan Adult BMI Follow Up Plan [facility] Start: 1977 Depression Screening Depression Screening [facility] Start: 1965 Tobacco Counseling Tobacco Counseling [facility] XR Elbow - left 2 Views XR elbow 1 or 2 views left Imaging Routine Left elbow pain 10/31/2024 10:59 AM EDT [facility] XR Wrist - left 3 Views XR wrist 3+ views left Imaging Routine Left wrist pain 10/31/2024 12:54 PM EDT [facility] Immunizations Immunization Date Immunization Notes Care Provider Claudia aguero 10-31-2022 tetanus toxoid, redu julian diphtheria toxoid, and acellular pertussis vaccine, adsorbed Devin Hayes [facility] Payers Date Payer Category Payer Blue Cross Blue [facility] - PPO [id number] 2022 Self-pay 2021 Blue Cross Blue Shield BCBS [id number] 2021 Unknown [id number]. 1.13.693. [id number] 1965 Unknown [id number] 2.16.840.1.843621.3.579. 2.593 1965 Unknown [id number] 2.16.840.1.535630.3.579. 2.593 1965 Unknown [id number] 2.16.840.1.988572.3.579. 2.1286 1965 Unknown [id number] 2.16.840.1.606251.3.579. 2.128 1965 Unknown [id number] 2.16.840.1.820152.3.579. 2.1286 1965 Unknown [id number] 2.16.840.1.996965.3.579. 2.1286 1965 Unknown [id number] 2.16.840.1.452619.3.579. 2.1286 1965 Unknown [id number] 2.16.840.1.750098.3.579. 2.1286 1965 Unknown [id number] 2.16.840.1.805952.3.579. 2.1259 1965 Unknown [id number] 2.16.840.1.184749.3.579. 2.1259 1965 Unknown [id number] 2.16.840.1.955804.3.579. 2.1259 1965 Unknown [id number] 2.16.840.1.345690.3.579. 2.1259 1965 Unknown [id number] 2.16.840.1.338674.3.579. 2.125 1965 Unknown [id number] 2.16.840.1.843624.3.579. 2.1258 1965 Unknown [id number] 2.16.840.1.778345.3.579. 2.1258 1965 Unknown [id number] 2.16.840.1.525787.3.579. 2.1258 1965 Unknown [id number] 2.16.840.1.824009.3.579. 2.1258 1965 Unknown [id number] 2.16.840.1.162676.3.579. 2.1258 1965 Unknown [id number] 2.16.840.1.943721.3.579. 2.1258 1965 Unknown [id number] 2.840.1.189117.3.579. 2.1258 1965 Unknown [id number] 2.16840.1.469846.3.579. 2. 1965 Unknown [id number] 2.16.840.1.023559.3.579. 2. 1965 Unknown [id number] 2.16.840.1.914962.3.579. 2.1285 1965 Unknown [id number] 2.840.1.995001.3.579. 2.1285 1965 Unknown [id number] 2..840.1.019469.3.579. 2.1285 1965 Unknown [id number] 2.16.840.1.579495.3.579. 2.1285 1965 Unknown [id number] 2.16.840.1.983342.3.579. 2.1285 1965 Unknown [id number] 2.16.840.1.172672.3.579. 2.1285 1965 Unknown [id number] 2.16.840.1.377090.3.579. 2.1286 1965 Unknown [id number] 2.16.840.1.245677.3.579. 2.727 1959 Unknown [id number] Social History Date Type Detail Facility Start: 07-03-1975 End: 07-19-2024 Tobacco smoking status NHIS Smokes tobacco daily [facility] Start: 07-03-1975 History of tobacco use Cigarette Smo ker [facility] Start: 12-26-2023 Tobacco use and exposure Smokeless tobacco non-user [facility] Start: 05-06-2024 End: 10-31-2024 Alcoholic beverage intake Defer [facility] Start: 02-26-2024 End: 07-19-2024 History of Social function [facility] Start: 02-26-2024 End: 07-19-2024 Tobacco use panel [facility] Start: 1965 Sex assigned at Not on file [facility] Start: 07-16-2024 Tobacco smoking stat [facility] Tobacco smoking consumption unknown [facility] Childcare Unknown [facility] Start: 10-14-2009 End: 02-03-2015 Sex Male (finding) [facility] Start: 07-19-2024 End: 11-08-2024 Alcoholic beverage intake Ex-drinker (finding) [facility] Start: 07-19-2024 Tobacco Comment 1 pk day for o jair 40 years [facility] Start: 07-03-1975 Tobacco smoking stat [facility] Occasional tobacco smoker [facility] Tobacco smoking status [facility] Clinical Notes 02-23-2024 to 11-08-2024 Lily Stratton MD - 11/08/2024 10:15 AM Scotty Castelan MA - 10/31/2024 1:15 PM Og Pena - 10/31/2024 1:15 PM Celeste Stratton MD - 08/09/2024 11:00 AM ESTPatient Instructions Note Date & Type Note Facility 11-08-2024 History of Present illness Narrative [facility] - ENT [address] [facility] [address] SUBJECTIVE: Patient ID (1965): Deon Phoenix is a 59 y.o. male presents today for Chief Complaint Patient presents with malignant neoplasm of tonsil HPI: Deon is seen in follow up. Patient was last seen on 08/09/24. To recall, he was seen in consultation per the request of Dr Yudith Escoto MD for malignant neoplasm of tonsil. He initially had CT imaging done during a wellness check, which prompted him to obtain a PET CT based on the results. Scan demonstrated asymmetry in the left nasopharynx and oropharynx. He smokes 0.5ppd for 40 years. Flex laryngoscopy in-office last visit demonstrated left greater than right tonsillar hypertrophy and fullness along the posterior aspect of the posterior tonsillar fossa on the left, as well as midline adenoid-like tissue that extended slightly to the left. CT neck with contrast on 07/18/24 showed midline nasopharyngeal mucosal hyperenhancing lesion measures 1.4 cm. No gross local soft tissue infiltration or skull base invasion. Similar subtle mucosal prominence of left fossa of Rosenmuller and asymmetric soft tissue fullness of the left palatine tonsil. These findings are mature conspicuous metabolically, as seen on 06/17/2024. No gross cervical adenopathy. Constellation of findings are nonspecific but may relate to hematogenous malignancy [such as lymphoma]. He underwent DL with biopsy on 07/29/24 and nasopharynx biopsy with nasal endoscopic debridement results demonstrated benign squamous mucosa with reactive dense lymphoid tissue. Today, he denies swallowing issues, voice changes, isolated otalgia, or hemoptysis. No previous issues of dysphonia, dysphagia, odynophagia, otalgia. No recent weight loss. Otherwise has no ENT-related concerns. HISTORY: Past Medical History: Diagnosis Date Arthritis Cancer (CMS-HCC) Malignant neoplasm of tonsil, unspecified (CMS-HCC) 07/19/2024 Nasal congestion 07/19/2024 Pulmonary nodule Visual impairment reading glasses Past Surgical History: Procedure Laterality Date BACK SURGERY 2007 disc CARPAL TUNNEL RELEASE Bilateral 2004 DIRECT LARYNGOSCOPY with biopsy Left 07/29/2024 Performed by Lily Stratton MD at [facility] ENDOSCOPIC DEBRIDEMENT NASAL - nasal endoscopy with biopsy Left 07/29/2024 Performed by Lily Stratton MD at [facility] SHOULDER SURGERY Right 2023 bone spur Family History Problem Relation Age of Onset No Known Problems Mother No Known Problems Father Social History Socioeconomic History Marital status: Spouse name: Not on file Number of children: Not on file Years of education: Not on file Highest education level: Not on file Occupational History Not on file Tobacco Use Smoking status: Some Days Current packs/day: 0.50 Average packs/day: 0.5 packs/day for 49.4 years (24.7 ttl pk-yrs) Types: Cigarettes Start date: 1975 Smokeless tobacco: Not on file Tobacco comments: 1 pk day for over 40 years Vaping Use Vaping status: Never Used Substance and Sexual Activity Alcohol use: Not Currently Drug use: Not Currently Sexual activity: Defer Other Topics Concern Not on file Social History Narrative Not on file Social Drivers of Health Financial Resource Strain: Not on file Food Insecurity: No Food Insecurity (07/19/2024) Hunger Screening Food Insecurity - Worry: Never True Food Insecurity - Inability: Never True Transportation Needs: Not on file Physical Activity: Not on file Stress: Not on file Social Connections: Not on file Interpersonal Safety: Not on file Housing Instability: Not on file No Known Allergies Current Outpatient Medications Medication Sig Dispense Refill acetaminophen (TYLENOL EXTRA STRENGTH) 500 mg tablet Take 1 tablet (500 mg total) by mouth every 6 (six) hours as needed for pain. azelastine (ASTELIN) 137 mcg (0.1 %) nasal spray Administer 1 spray into each nostril in the morning and 1 spray before bedtime. Use in each nostril as directed. 30 mL 12 fluticasone propionate (FLONASE) 50 mcg/actuation nasal spray Administer 2 sprays into each nostril in the morning. 16 g 11 meloxicam (MOBIC) 15 mg tablet Take 1 tablet (15 mg total) by mouth daily with breakfast. Knows to hold until after surgery No current facility-administered medications for this visit. REVIEW OF SYSTEMS: Review of Systems Constitutional: Negative for chills and fever. Eyes: Negative for visual disturbance. Respiratory: Negative for cough and shortness of breath. Cardiovascular: Negative for chest pain and palpitations. Gastrointestinal: Negative for nausea and vomiting. Endocrine: Negative for cold intolerance and heat intolerance. Genitourinary: Negative for difficulty urinating. Musculoskeletal: Negative for neck pain and neck stiffness. Skin: Negative for rash. Allergic/Immunologic: Negative for food allergies. Neurological: Negative for seizures. Hematological: Does not bruise/bleed easily. Psychiatric/Behavioral: Negative for confusion. Data Reviewed: PHYSICAL EXAMINATION: Resp 18 Ht 172.7 cm (5' 8 ) Wt 83.5 kg (184 lb) BMI 27.98 kg/m Constitutional: Healthy, alert, cooperative, and in no distress and normal ablility to communicate . Voice normal quality. Head/Face: Normocephalic, without obvious abnormality, salivary glands normal, atraumatic, sinuses nontender, and facial nerve intact Eyes: No gross abnormalities., EOMI, no nystagmus, and no lid ptosis Nose: External nose appears normal, septum midline, normal mucosa, normal turbinates, and no nasal polyps or masses Oral: normal teeth, normal lips, normal gums, normal hard palate, normal anterior tongue, and oral mucosa moist Oropharynx: normal-appearing mucosa, no pharyngitis, no exudate, and normal soft palate and uvula Nasopharynx: unable to view due to hyperactive gag reflex and See procedure note., Hypopharynx: unable to view due to hyperactive gag reflex and See procedure note., Larynx: unable to view due to hyperactive gag reflex. and See procedure note. TMJ: no pain, crepitus, or trismus Neck:normal, supple, no adenopathy, thyroid normal in size, no nodules or tenderness, no neck masses palpable, and carotids normal Heart: Regular rate Respiration: No stridor, Normal respiratory effort. Neurologic: Grossly normal Alert Oriented X 3 Affect normal Cranial nerves 2 -12 grossly intact Procedure Note: Flexible Laryngoscopy Pre-operative Diagnosis: Hyperactive gag Post-operative Diagnosis: same Surgeon: LILY STRATTON MD Anesthesia: Oxymetazoline and 4% Lidocaine Endoscopy Type: Flexible Laryngoscopy Procedure Details: The patient was placed in the sitting position. After topical anesthesia and decongestant applied, a flexible laryngoscope was passed. The nasal cavities, nasopharynx, oropharynx, hypopharynx, and larynx were all examined. Vocal cords were examined during respiration and phonation. The following findings were noted: Findings: No pus, no polyps, nasopharynx and eustachian tube are normal Base of the tongue and epiglottis appear normal, vocal cords are mobile and without lesion, subglottic space and pyriform sinuses appear normal Condition: The procedure was successful and and tolerated well. Complications: None ASSESSMENT/PLAN: Deon Phoenix presents today for follow up. The patient underwent a flexible laryngoscopy during the visit today. The results were reviewed and discussed with the patient. No evidence of local regional recurrence or alexey disease. I will see him back as needed. Plan: 1) Follow up as needed Scribe Statement: Scribed for and in the presence of LILY STRATTON MD by Oniel Dash (scribe). Oniel Dash 11/08/2024 10:33 AM Provider Statement: I LILY STRATTON MD personally performed the services described in the documentation as described by the above named scribe in my presence. It is both accurate and complete at the time of final signature. Counseling: The following elements of medical decision making were considered during this visit: Obtained/reviewed historical records . The patient was counseled regarding prognosis, risks and benefits of treatment options, impressions, importance of compliance with treatment and risk factor reductions. The patient verbalized understanding and agreement to the plan. Please note that parts of this chart were generated using voice recognition M*Modal dictation software. Although every effort was made to ensure the accuracy of this automated drain tiler, some errors in drain tiler may have occurred. Emelina Barros MA 11/08/24 1033 documented in this encounter [facility] 10-31-2024 Evaluation + Plan note Diagnostic Tests PendingRheumatoid Factor Quantitative 10/31/24ANA w/Reflex if POS 10/31/24 [facility] 10-31-2024 History of Present illness Narrative Associated Order(s): M Inj/Asp: bilateral radiocarpal Post-Procedure Diagnose(s): Acute gout of left wrist, unspecified cause M Inj/Asp: bilateral radiocarpal on 10/31/2024 1:41 PM Indications: diagnostic evaluation Details: 24 G needle, ultrasound-guided Medications (Right): 6 mg betamethasone acetate-betamethasone sodium phosphate 6 (3-3) MG/ML Medications (Left): 6 mg betamethasone acetate-betamethasone sodium phosphate 6 (3-3) MG/ML Outcome: tolerated well, no immediate complications Consent was given by the patient. Images from the original note were not included. Deon Phoenix is a 59 y.o. male presents with chief complaint of bilateral arm pain, stiffness and swelling. HPI: Akash is here mainly having bilateral ulnar wrist pain with swelling. He does have a family history of rheumatoid arthritis and gout. No falls or trauma. He does get some neck stiffness, occasional numbness. Occasional elbow pain. His shoulder arthroscopy site is doing well. The contralateral shoulder is causing some pain and crepitation. There are no fever or chills, no arthralgias or myalgias. He has never had any serologic testing for inflammatory or autoimmune panels. SUBJECTIVE: MEDICATIONS: No current outpatient medications ALLERGIES: No Known Allergies SURGICAL HISTORY: History reviewed. No pertinent surgical history. FAMILY HISTORY: No family history on file. SOCIAL HISTORY: Social History Tobacco Use Smoking status: Every Day Current packs/day: 1.00 Types: Cigarettes Smokeless tobacco: Never Vaping Use Vaping status: Never Used Substance Use Topics Alcohol use: Defer Drug use: Never Depression: Not on file REVIEW OF SYMPTOMS: The review of systems, history and current medications list are all reviewed today. OBJECTIVE: Visit Vitals Ht 5' 7 Wt 195 lb BMI 30.54 kg/m Smoking Status Every Day BSA 2.05 m Physical Exam On physical exam, he has some mild achiness along the elbow on the left, negative on the right. The shoulders have mild stiffness. His ulnar column of the wrist has mild to moderate swelling and tenderness over the ECU tendon. ECU tendonitis with resistance produces pain. His carpal tunnel is mildly positive on the left, negative on the right. TFCC testing is negative. Scaphoid is stable. CMC grind is negative. Elias's test is negative bilaterally. X-rays and imaging permanently saved to the patient's record were reviewed taken of the left wrist three views AP, lateral and oblique show mild to moderate degenerative changes. Two views of the left elbow, AP and lateral, show mild degenerative changes. No fracture, dislocation, tumor or infection seen. No sign of supracondylar process. ASSESSMENT AND PLAN: Assessment/Plan Bilateral upper extremity pain with tendinopathy in particular ECU tendon. Bilateral wrist swelling. Questionable carpal tunnel syndrome. The nature of the findings were discussed at length. We discussed the role of EMG testing if he has continued pain or any increasing numbness and tingling. We will set up serologic testing with sed rate, CRP, MARIE, rheumatoid factor and uric acid. There is some family history of these issues. We will call him back with the results. With consent from the patient today, limited ultrasound is performed of the bilateral wrists. This shows swelling and tendinopathy of the ECU tendon sheath. No sign of cyst or mass. 1 cc of cortisone (3 mg of Betamethasone sodium phosphate with 3 mg of Betamethasone acetate) and 1 cc of 1% plain Lidocaine was injected bilaterally to the ECU tendon sheath under ultrasound guidance with needle captured. The patient tolerated both injections well. He is aware he can have up to three per year. We discussed the potential bracing and therapy. Further management of the shoulder arthritis and impingement with arthroscopy. He is discharged in stable condition. Numerous questions were answered. Follow up p.r.n.. We will let him know with the lab results when we get these back. The patient was seen and examined. From the time of check in, nurse triage, vital signs, x-ray, x-ray interpretation, review of systems, comprehensive history and physical exam as well as setting up treatment plan and further management took 35 minutes. Cosigned by Devin Hayes DO at 11/05/2024 7:05 AM EDT documented in this encounter [facility] 08-09-2024 History of Present illness Narrative [facility] [address], [address] [place] [id number] SUBJECTIVE: Patient ID ([id number]): Deon Phoenix is a 58 y.o. male presents today for Chief Complaint Patient presents with Post-op HPI: Deon is here today for post-op follow-up s/p D/L with biopsy of nasopharyngeal and oropharyngeal lesions with nasal endoscopic debridement on 07/29/24. To recall, he was seen in consultation per the request of Dr Yudith Escoto MD for malignant neoplasm of tonsil. He initially had CT imaging done during a wellness check, which prompted him to obtain a PET CT based on the results. Scan demonstrated asymmetry in the left nasopharynx and oropharynx. He smokes 0.5ppd for 40 years. Flex laryngoscopy in-office last visit demonstrated left greater than right tonsillar hypertrophy and fullness along the posterior aspect of the posterior tonsillar fossa on the left, as well as midline adenoid-like tissue that extended slightly to the left. CT neck with contrast on 07/18/24 showed midline nasopharyngeal mucosal hyperenhancing lesion measures 1.4 cm. No gross local soft tissue infiltration or skull base invasion. Similar subtle mucosal prominence of left fossa of Rosenmuller and asymmetric soft tissue fullness of the left palatine tonsil. These findings are mature conspicuous metabolically, as seen on 06/17/2024. No gross cervical adenopathy. Constellation of findings are nonspecific but may relate to hematogenous malignancy [such as lymphoma]. He underwent DL with biopsy on 07/29/24 and nasopharynx biopsy results demonstrated benign squamous mucosa with reactive dense lymphoid tissue. No granuloma, dysplasia or neoplasm. Left palatine tonsil biopsy results demonstrated benign squamous mucosa with reactive dense lymphoid tissue. No granuloma, dysplasia or neoplasm. He is healing well post-op s/p biopsy. No new ENT related concerns. HISTORY: Past Medical History: Diagnosis Date Arthritis Cancer (CMS-HCC) Malignant neoplasm of tonsil, unspecified (CMS-HCC) 07/19/2024 Nasal congestion 07/19/2024 Pulmonary nodule Visual impairment reading glasses Past Surgical History: Procedure Laterality Date BACK SURGERY 2008 disc CARPAL TUNNEL RELEASE Bilateral 2004 DIRECT LARYNGOSCOPY with biopsy Left 07/29/2024 Performed by Lily Stratton MD at [facility] ENDOSCOPIC DEBRIDEMENT NASAL - nasal endoscopy with biopsy Left 07/29/2024 Performed by Lily Stratton MD at [facility] SHOULDER SURGERY Right 2023 bone spur Family History Problem Relation Age of Onset No Known Problems Mother No Known Problems Father Social History Socioeconomic History Marital status: Spouse name: Not on file Number of children: Not on file Years of education: Not on file Highest education level: Not on file Occupational History Not on file Tobacco Use Smoking status: Some Days Current packs/day: 0.50 Average packs/day: 0.5 packs/day for 49.1 years (24.6 ttl pk-yrs) Types: Cigarettes Start date: 1975 Smokeless tobacco: Not on file Tobacco comments: 1 pk day for over 40 years Vaping Use Vaping status: Never Used Substance and Sexual Activity Alcohol use: Not Currently Drug use: Not Currently Sexual activity: Defer Other Topics Concern Not on file Social History Narrative Not on file Social Drivers of Health Financial Resource Strain: Not on file Food Insecurity: No Food Insecurity (07/19/2024) Hunger Screening Food Insecurity - Worry: Never True Food Insecurity - Inability: Never True Transportation Needs: Not on file Physical Activity: Not on file Stress: Not on file Social Connections: Not on file Interpersonal Safety: Not on file Housing Instability: Not on file No Known Allergies Current Outpatient Medications Medication Sig Dispense Refill acetaminophen (TYLENOL EXTRA STRENGTH) 500 mg tablet Take 1 tablet (500 mg total) by mouth every 6 (six) hours as needed for pain. azelastine (ASTELIN) 137 mcg (0.1 %) nasal spray Administer 1 spray into each nostril in the morning and 1 spray before bedtime. Use in each nostril as directed. 30 mL 12 fluticasone propionate (FLONASE) 50 mcg/actuation nasal spray Administer 2 sprays into each nostril in the morning. 16 g 11 meloxicam (MOBIC) 15 mg tablet Take 1 tablet (15 mg total) by mouth daily with breakfast. Knows to hold until after surgery No current facility-administered medications for this visit. REVIEW OF SYSTEMS: Review of Systems Constitutional: Negative for chills and fever. HENT: Negative for congestion, ear discharge, ear pain, postnasal drip, rhinorrhea, sinus pressure, sinus pain and sore throat. Respiratory: Negative for cough and wheezing. Gastrointestinal: Negative for nausea and vomiting. Data Reviewed: SURGICAL PATHOLOGY ON 07/29/24: Final Pathologic Diagnosis 1. Nasopharynx, biopsy: BENIGN squamous mucosa with reactive dense lymphoid tissue. See comment. No granuloma, dysplasia or neoplasm. 2. Left palatine tonsil biopsy: BENIGN squamous mucosa with reactive dense lymphoid tissue. See comment. No granuloma, dysplasia or neoplasm. Comment: To help rule out the possibility of a lymphoid neoplasm, immunohistochemistry (with appropriate controls was performed on both parts of the specimen revealing the following results. The lymphoid cells are composed of CD3/CD5 positive T-cell areas and CD20 positive B-cell areas in a normal distribution. Bcl-2 and BCL6 show a normal staining pattern. CD10 shows nonspecific faint staining in the follicles. CD21 highlights the follicular dendritic meshwork. DIPESH by in situ hybridization (LIZETH) in specimen part 1 (with appropriate controls) is negative.These findings rule out the possibility of a lymphoid neoplasm. Clinical correlation is suggested. The case was reviewed in intradepartmental consultation. Narrative & Impression CT NECK SOFT TISSUE W CONT ON 07/18/2024 INDICATION: Tonsil, adenoids disorder. Pharyngeal mass.. TECHNIQUE: CT of the neck performed following the uneventful administration of 100 mL Omnipaque-300 intravenous contrast. Multiplanar reformats were created and reviewed. All CT scans at this facility use dose modulation, iterative reconstruction, and/or weight based dosing when appropriate to reduce radiation dose to as low as reasonably achievable. COMPARISON: 06/17/2024 FINDINGS: Prominent midline nasopharyngeal tissue, 1.4 cm. Subtle asymmetric uniform hyperenhancement left fossa of Rosenmuller; these areas are much more conspicuous metabolically on recent PET than on prior exam. Mild asymmetric fullness left palatine tonsil when compared to the right. No gross soft tissue infiltration. Cameron tonsilloliths. 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 Normal parotid, submandibular glands, thyroid. Severe emphysema. Patent major neck vasculature. Unremarkable visualized intracranial compartment, orbits, paranasal sinuses, temporal bone structures. Straightening of the typical cervical lordosis. No aggressive osseous lesions. IMPRESSION: Midline nasopharyngeal mucosal hyperenhancing lesion measures 1.4 cm. No gross local soft tissue infiltration or skull base invasion. Similar subtle mucosal prominence of left fossa of Rosenmuller and asymmetric soft tissue fullness of the left palatine tonsil. These findings are mature conspicuous metabolically, as seen on 06/17/2024. No gross cervical adenopathy. Constellation of findings are nonspecific but may relate to hematogenous malignancy [such as lymphoma] PHYSICAL EXAMINATION: Temp 36.4 C (97.6 F) Ht 172.7 cm (5' 8 ) Wt 83.8 kg (184 lb 12.8 oz) BMI 28.10 kg/m Constitutional: Healthy, Alert, Cooperative, and In No Apparent Distress and Normal Ability to Communicate Voice normal quality and volume Head/Face: Normocephalic, without obvious abnormalities present, Atraumatic, and facial nerve intact bilaterally Eyes: No gross abnormalities. and Gaze Alignment Straight Ear: RIGHT: Auricle: normal size, shape, without obvious skin lesions, Normal hearing in exam room, External ear canal normal: no otorrhea, lesions, skin erythema, or swelling, Tympanic Membrane Intact, visible middle ear space appears aerated., and No visible erythema or swelling overlying mastoid region. LEFT: Auricle: normal size, shape, without obvious skin lesions, Normal hearing in exam room, External ear canal normal: no otorrhea, lesions, skin erythema, or swelling, Tympanic Membrane Intact, visible middle ear space appears aerated., and No visible erythema or swelling overlying mastoid region. Nose: Normal external nasal skin & alignment upper and lower nasal cartilages, without obvious deformity, caudal septum midline, normal intranasal mucosa, normal turbinates, and no nasal polyps, masses, or signs of recent/active bleeding Oral: Normal appearance upper and lower lips, Buccal Mucosa: normal appearance bilaterally, moist, Age appropriate dentition, Normal gingiva without lesions, Floor of mouth: mucosa normal, no palpable masses, no visible lesions. Clear saliva flow bilateral submandibular ducts., Anterior tongue: Dorsal & Ventral mucosa normal. Protrudes side to side without restriction. No palpable masses., and Normal hard palate Oropharynx: normal-appearing mucosa, no pharyngitis, no exudate, and normal soft palate and uvula TMJ: no pain, crepitus, or trismus Neck:normal, supple, no adenopathy, thyroid normal in size, no nodules or tenderness, no neck masses palpable, and carotids normal Respiration: No stridor, Normal respiratory effort. Chest expands symmetrically. Clear to auscultation bilaterally without audible wheezes or crackles. Cardiovascular: Regular rate, normal carotid pulse to palpation. S1, S2, regular rate and rhythm without auscultation of a murmur. Neurologic: Grossly normal Alert Oriented X 3 Affect normal Cranial nerves 2 -12 grossly intact ASSESSMENT/PLAN: Deon was seen today for post-op. Diagnoses and all orders for this visit: Malignant neoplasm of tonsil (CMS-HCC) Deon is here today for post-op follow-up s/p D/L with biopsy of nasopharyngeal and oropharyngeal lesions with nasal endoscopic debridement on 07/29/24. He underwent DL with biopsy on 07/29/24 and nasopharynx biopsy results demonstrated benign squamous mucosa with reactive dense lymphoid tissue. No granuloma, dysplasia or neoplasm. Left palatine tonsil biopsy results demonstrated benign squamous mucosa with reactive dense lymphoid tissue. No granuloma, dysplasia or neoplasm. I explained that my concern for malignancy is low, however given his history of smoking, I would like to repeat a flex laryngoscopy in 4 months. Plan: Follow-up in 4 months with repeat flex laryngoscopy Scribe Statement: Scribed for and in the presence of LILY STRATTON MD by Audelia Taylor. Audelia Taylor 08/09/2024 11:05 AM Provider Statement: I LILY STRATTON MD personally performed the services described in the documentation as described by the above named scribe in my presence. It is both accurate and complete at the time of final signature. Counseling: The following elements of medical decision making were considered during this visit: Reviewed and summarized previous records. The patient was counseled regarding prognosis, risks and benefits of treatment options, impressions, importance of compliance with treatment and risk factor reductions. The patient verbalized understanding and agreement to the plan. Please note that parts of this chart were generated using voice recognition Disrupt6 dictation software. Although every effort was made to ensure the accuracy of this automated drain tiler, some errors in drain tiler may have occurred. Darcie Crooks CMA 08/09/24 1056 documented in this encounter [facility] 08-09-2024 Instructions Audelia Taylor - 08/09/2024 11:00 AM EST Today's examination findings were discussed with the patient/patient's parent or guardian. Recommendations for treatment were provided including the following: Plan: Follow-up in 4 months with repeat flex laryngoscopy The patient will contact my office if there are any additional questions or concerns: . Non-emergent messages received through [employer] may take up to 2 business days for a response. documented in this encounter [facility] 08-07-2024 History of Present illness Narrative Nurse Navigation Progress Note 08/07/24 Deon Phoenix is a 58 y.o. year old male. Navigation basics: Navigation For: Head and Neck Current Status: Pre-treatment Touch point: In Person : Patient Location of Visit: Telephone Type of Visit: Follow-up; Support Phone: Left Message Treatment(s): No data recorded Distress Tool: No data recorded Other: No data recorded Synopsis: This resume writer received a message from Deon today enquiring about the results of his recent pathology. Back and was only able to leave him a message letting him know that she sent a message to Dr. Stratton letting him know that he is enquiring about his pathology and asked him to call Deon to discuss it with him. This resume writer let Deon know if he had any other questions or concerns to please call her back at [phone]. Leyla Gray MSN, RN, OCN Otolaryngology Nurse [facility] documented in this encounter [facility] 07-22-2024 Miscellaneous Notes 07/22 surgery was cancelled. I left him a message offering 07/29/24 at [facility]. Arrival would be 830 am with surgery at 1030. Asked for a call back confirming this works for him. documented in this encounter [facility] 07-22-2024 Telephone encounter Note 07/22 surgery was cancelled. I left him a message offering 07/29/24 at [facility]. Arrival would be 830 am with surgery at 1030. Asked for a call back confirming this works for him. [facility] 07-19-2024 History and physical note Images from the original note were not included. PRE-ADMISSION TESTING HISTORY AND PHYSICAL EXAM DATE: 07/19/24 PCP: ARIES TANG MD HISTORY OF PRESENT ILLNESS: Deon Phoenix, a 58 y.o. Unknown male, presents to [facility] for a pre-surgical H&P. The patient has been diagnosed with Malignant neoplasm of tonsil ([facility]-HCC) [146.0] . He initially had CT imaging done during a wellness check, which prompted him to obtain a PET CT based on the results. Scan demonstrated asymmetry in the left nasopharynx and oropharynx. Patient had a flexible laryngoscopy on July 16, 2024 which showed Findings: No pus, no polyps, nasopharynx and eustachian tube are normal, Midline adenoid-like tissue that extended slightly to the left Base of the tongue and epiglottis appear normal, vocal cords are mobile and without lesion, subglottic space and pyriform sinuses appear normal, fullness along posterior aspect of posterior tonsillar fossa. Patient denies any difficulty swallowing or pain with swallowing. He denies any changes in his voice. Patient is a smoker. He denies any recent illness, fever, or cough. Anesthesia problems: denies. Latex allergy: denies. Bleeding/ clotting disorders: denies. Recent hospitalizations: denies. PAST MEDICAL HISTORY: Past Medical History: Diagnosis Date Arthritis Cancer ([facility]-HCC) Malignant neoplasm of tonsil, unspecified ([facility]-H[facility]) 07/19/2024 Nasal congestion 07/19/2024 Pulmonary nodule Visual impairment reading glasses PAST SURGICAL HISTORY: Past Surgical History: Procedure Laterality Date BACK SURGERY 2008 disc CARPAL TUNNEL RELEASE Bilateral 2005 SHOULDER SURGERY Right 2023 bone spur FAMILY HISTORY: Family History Problem Relation Age of Onset No Known Problems Mother No Known Problems Father SOCIAL HISTORY: The patient reports that he does not currently use alcohol. He reports that he has been smoking cigarettes. He started smoking about 49 years ago. He has a 24.5 pack-year smoking history. He does not have any smokeless tobacco history on file. He reports that he does not currently use drugs. ALLERGIES: No Known Allergies MEDICATIONS: Current Outpatient Medications: acetaminophen (TYLENOL EXTRA STRENGTH) 500 mg tablet, Take 1 tablet (500 mg total) by mouth every 6 (six) hours as needed for pain., Disp: , Rfl: azelastine (ASTELIN) 137 mcg (0.1 %) nasal spray, Administer 1 spray into each nostril in the morning and 1 spray before bedtime. Use in each nostril as directed., Disp: 30 mL, Rfl: 12 fluticasone propionate (FLONASE) 50 mcg/actuation nasal spray, Administer 2 sprays into each nostril in the morning., Disp: 16 g, Rfl: 11 meloxicam (MOBIC) 15 mg tablet, Take 1 tablet (15 mg total) by mouth daily with breakfast. Knows to hold until after surgery, Disp: , Rfl: No current facility-administered medications for this visit. REVIEW OF SYSTEMS: Review of Systems Constitutional: Negative. HENT: Negative. Malignant neoplasm of the tonsil Eyes: Glasses Respiratory: Negative for apnea, cough and wheezing. Pulmonary nodule Cardiovascular: Negative for chest pain, palpitations and tachycardia. Gastrointestinal: Negative. Endocrine: Negative. Genitourinary: Negative. Musculoskeletal: Negative. Skin: Negative. Allergic/Immunologic: Negative. Neurological: Negative. Hematological: Negative. Psychiatric/Behavioral: Negative. VITAL SIGNS: BP 121/83 Pulse 95 Temp 36.1 C (97 F) (Temporal) Resp 16 Ht 172.7 cm (5' 8 ) Wt 83.1 kg (183 lb 3.2 oz) SpO2 99% BMI 27.86 kg/m PHYSICAL EXAM: Physical Exam Constitutional: Appearance: Normal appearance. HENT: Head: Normocephalic and atraumatic. Nose: Nose normal. Mouth/Throat: Mouth: Mucous membranes are moist. Pharynx: Oropharynx is clear. Eyes: Extraocular Movements: Extraocular movements intact. Conjunctiva/sclera: Conjunctivae normal. Pupils: Pupils are equal, round, and reactive to light. Cardiovascular: Rate and Rhythm: Normal rate and regular rhythm. Heart sounds: Normal heart sounds. Pulmonary: Effort: Pulmonary effort is normal. Breath sounds: Normal breath sounds. Abdominal: General: Bowel sounds are normal. Palpations: Abdomen is soft. Musculoskeletal: General: Normal range of motion. Cervical back: Normal range of motion and neck supple. Skin: General: Skin is warm. Neurological: General: No focal deficit present. Mental Status: He is alert and oriented to person, place, and time. PERTINENT TESTING AVAILABLE IN [facility] (WITHIN THE PAST 2 YEARS): EK07/19/2024 Echo: No results found. Stress test: No results found. Holter: No results found. Cardiac catheterization: No results found. Carotids: No results found. Pulmonary function testing: No results found. RECENT LABS: No results found for: WBC , HGB , HCT , PLT , INR , PTT , SODIUM , K , CL , CO2 , CALCIUM , MAGNESIUM , ALKPHOS , ALBUMIN , GLU , HGBA1C , ALT , AST , CREATININE , BUN , GFR , EGFR , TSH , PSA *Please note that labs listed above are the most recent lab values available in [facility] at the time the H&P was signed. 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 Stratton. MARY Montalvo 07/19/24 1009 [facility] 07-19-2024 History and physical note Images from the original note were not included. PRE-ADMISSION TESTING HISTORY AND PHYSICAL EXAM DATE: 07/19/24 PCP: ARIES TANG MD HISTORY OF PRESENT ILLNESS: Deon Phoenix, a 58 y.o. Unknown male, presents to [facility] for a pre-surgical H&P. The patient has been diagnosed with Malignant neoplasm of tonsil (CMS-HCC) [146.0] . He initially had CT imaging done during a wellness check, which prompted him to obtain a PET CT based on the results. Scan demonstrated asymmetry in the left nasopharynx and oropharynx. Patient had a flexible laryngoscopy on July 16, 2024 which showed Findings: No pus, no polyps, nasopharynx and eustachian tube are normal, Midline adenoid-like tissue that extended slightly to the left Base of the tongue and epiglottis appear normal, vocal cords are mobile and without lesion, subglottic space and pyriform sinuses appear normal, fullness along posterior aspect of posterior tonsillar fossa. Patient denies any difficulty swallowing or pain with swallowing. He denies any changes in his voice. Patient is a smoker. He denies any recent illness, fever, or cough. Anesthesia problems: denies. Latex allergy: denies. Bleeding/ clotting disorders: denies. Recent hospitalizations: denies. PAST MEDICAL HISTORY: Past Medical History: Diagnosis [place]ignant [place] of [place], unspecified [place] 07/19/2024 Nasal congestion 07/19/2024 Pulmonary nodule Visual impairment reading glasses PAST SURGICAL HISTORY: Past Surgical History: Procedure Laterality Date BACK SURGERY 2008 disc CARPAL TUNNEL RELEASE Bilateral 2004 SHOULDER SURGERY Right 2023 bone spur FAMILY HISTORY: Family History Problem Relation Age of Onset No Known Problems Mother No Known Problems Father SOCIAL HISTORY: The patient reports that he does not currently use alcohol. He reports that he has been smoking cigarettes. He started smoking about 49 years ago. He has a 24.5 pack-year smoking history. He does not have any smokeless tobacco history on file. He reports that he does not currently use drugs. ALLERGIES: No Known Allergies MEDICATIONS: Current Outpatient Medications: acetaminophen (TYLENOL EXTRA STRENGTH) 500 mg tablet, Take 1 tablet (500 mg total) by mouth every 6 (six) hours as needed for pain., Disp: , Rfl: azelastine (ASTELIN) 137 mcg (0.1 %) nasal spray, Administer 1 spray into each nostril in the morning and 1 spray before bedtime. Use in each nostril as directed., Disp: 30 mL, Rfl: 12 fluticasone propionate (FLONASE) 50 mcg/actuation nasal spray, Administer 2 sprays into each nostril in the morning., Disp: 16 g, Rfl: 11 meloxicam (MOBIC) 15 mg tablet, Take 1 tablet (15 mg total) by mouth daily with breakfast. Knows to hold until after surgery, Disp: , Rfl: No current facility-administered medications for this visit. REVIEW OF SYSTEMS: Review of Systems Constitutional: Negative. HENT: Negative. Malignant neoplasm of the tonsil Eyes: Glasses Respiratory: Negative for apnea, cough and wheezing. Pulmonary nodule Cardiovascular: Negative for chest pain, palpitations and tachycardia. Gastrointestinal: Negative. Endocrine: Negative. Genitourinary: Negative. Musculoskeletal: Negative. Skin: Negative. Allergic/Immunologic: Negative. Neurological: Negative. Hematological: Negative. Psychiatric/Behavioral: Negative. VITAL SIGNS: BP 121/83 Pulse 95 Temp 36.1 C (97 F) (Temporal) Resp 16 Ht 172.7 cm (5' 8 ) Wt 83.1 kg (183 lb 3.2 oz) SpO2 99% BMI 27.86 kg/m PHYSICAL EXAM: Physical Exam Constitutional: Appearance: Normal appearance. HENT: Head: Normocephalic and atraumatic. Nose: Nose normal. Mouth/Throat: Mouth: Mucous membranes are moist. Pharynx: Oropharynx is clear. Eyes: Extraocular Movements: Extraocular movements intact. Conjunctiva/sclera: Conjunctivae normal. Pupils: Pupils are equal, round, and reactive to light. Cardiovascular: Rate and Rhythm: Normal rate and regular rhythm. Heart sounds: Normal heart sounds. Pulmonary: Effort: Pulmonary effort is normal. Breath sounds: Normal breath sounds. Abdominal: General: Bowel sounds are normal. Palpations: Abdomen is soft. Musculoskeletal: General: Normal range of motion. Cervical back: Normal range of motion and neck supple. Skin: General: Skin is warm. Neurological: General: No focal deficit present. Mental Status: He is alert and oriented to person, place, and time. PERTINENT TESTING AVAILABLE IN [facility] (WITHIN THE PAST 2 YEARS): EK07/19/2024 Echo: No results found. Stress test: No results found. Holter: No results found. Cardiac catheterization: No results found. Carotids: No results found. Pulmonary function testing: No results found. RECENT LABS: No results found for: WBC , HGB , HCT , PLT , INR , PTT , SODIUM , K , CL , CO2 , CALCIUM , MAGNESIUM , ALKPHOS , ALBUMIN , GLU , HGBA1C , ALT , AST , CREATININE , BUN , GFR , EGFR , TSH , PSA *Please note that labs listed above are the most recent lab values available in [facility] at the time the H&P was signed. 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 Stratton. MARY Montalvo 07/19/24 1009 documented in this encounter [facility] 07-19-2024 Instructions Elizabeth Cantrell RN - 07/19/2024 9:30 AM EST Bathing Before Surgery- Patients greater than 2 months of age You can help to lower your chance of infection at the site of your surgery by showering or bathing with a special soap called chlorhexidine gluconate (CHG). Germs live on your skin. This special soap will help lower the amount of germs so they do not get into your surgery site. Special points to know: Do not use this soap if you know that you are allergic to CHG. Shower or bathe with CHG the night before and the morning of surgery. Do not shave the area of your body where the surgery will be done within 7 days of surgery. The CHG may make your skin a little dry, but do not use lotion. Steps for Bathing: Wash your hair as usual with your normal shampoo. Rinse your hair and body well after you shampoo to get rid all of the shampoo. Wash gently with the CHG from the neck down, but do not scrub the skin to hard. Be sure to wash the area of your surgery very well. If showering, turn the water off while washing and then turn the water back onto rinse. Do not get CHG in the genital (private) area. Do not get CHG in the eyes, ears, nose or mouth. (If the soap gets into the eyes, flush them immediately with water). Do not wash with regular soap after CHG is used. Pat skin dry with a soft, clean towel. Patient should sleep in freshly laundered night clothes and report for surgery in clean clothes. Your surgery/procedure is scheduled at [facility] on 07-22-2024 at 11 am Arrival Time 9 am [facility] Address: [address] [place] [address]. [place], [place] [address] Park in [address] Parking lot located on [facility]. Report to the Entrance B. Check in at the information desk the surgery. The waiting room located on the second floor. If you have any questions prior to surgery, please call Pre-Admission Clinic at [phone] between 7:30 am and 4:30 pm Monday through Monday. If you have questions the morning of surgery, please call the Pre-op Department at [phone]. Notify your SURGEON if you develop any illness such as a cold, cough, fever, sore throat, vomiting or are hospitalized between now and your surgery. Medication Instructions (Do not stop your medications without consulting the prescribing physician). Take the following medications the morning of surgery with a sip of water: none Diabetic or Weight loss medications: HOLD n/a LAST DOSE n/a Take inhalers as prescribed the morning of surgery. Due to the risk associated with these medications. If these medications are not held per instruction below, your surgery is at an increased risk for cancellation. SGLT2 Medications- Hold 3 days prior to surgery: Jardiance, Empagliflozin, Farxiga, Dapagliflozin, Invokana, Canagliflozin, Trijardy, Synjardy GLP-1 Medications (Injection or Pill)- If taken daily hold day of surgery. If taken weekly, hold 1 week prior to surgery: Adlyxin, Byetta, Bydureon, Ozempic, Rybelsus,Trulicity, Victoza, Wegovy, Lixisenatide, Exenatide, Semaglutide, Dulaglutide, Liraglutide GIP/GLP-1(Injection or Pill)- If taken daily hold day of surgery. If taken weekly, hold 1 week prior to surgery: Mounjaro . Blood thinners: Please contact your prescribing physician regarding a stop/hold date for these medications. Medications such as Coumadin, Heparin, Aspirin, Plavix, Eliquis, Pradaxa Diabetics: If you take insulin, contact your prescribing doctor for instructions on how to manage this the night before and the morning of surgery. Non-steriodal Anti-Inflammatory Drugs (NSAIDS)- Hold 3 days prior to surgery unless otherwise directed by your surgeon. Vitamins/Herbal Products: You may continue to take your prescribed vitamins such as potassium, iron, vitamin B, vitamin C, or multivitamin unless specifically instructed by your surgeon to hold. STOP taking all herbal products/teas one week prior to your surgery. Marijuana: Stop marijuana 72 hours prior to surgery, stop CBD oil 48 hours prior to surgery. If you have been given bowel prep instructions by your surgeon, please call the surgeon's office with any questions about these instructions. What do I do the day of Surgery? Age 2 through adult - Stop all solids by midnight, You may have clear liquids up to 2 hours before surgery, unless otherwise instructed by your surgeon. Clear liquids are: water, sports drinks such as Gatorade or G2, or apple juice. You may NOT have: tube feedings, dairy products, alcoholic beverages, orange juice, or any liquids with solids or pulp in it. If applicable, shower again with CHG soap the morning of your surgery. If you received a green plastic bracelet, bring it with you the day of surgery and your nurse will put it on you. In order to help prevent infection post-operatively, you may be asked to use a CHG mouthwash when you arrive to the Pre-op area. Your nurse will provide instruction the morning of. What do I need to do to prepare for surgery? If you will be going home the same day as your surgery, arrange for an adult over [address] Riding in a bus or taxi by yourself is not permitted. You should not smoke or drink alcohol 24 hours before your surgery. Alcohol thins the blood and may cause bleeding problems during surgery. Smoking increases the risk of breathing problems after surgery. Do not use lotions, creams, powders, perfume, make up, cologne or after-shaves day of surgery. Remove ALL jewelry including wedding rings, body piercings (including dermal piercings ,hair extensions that contain metal, nail ukrainian, make-up, and contact lens. You may brush your teeth the morning of surgery, but do not swallow the water. Wear your dentures and partial plates to the hospital (no adhesive). Shower the night the before. If applicable, use the CHG (chlorhexidine gluconate) soap or wipes What should I bring to the hospital? If you received a green plastic bracelet, bring it with you the day of surgery and your nurse will put it on you. Eyeglass or contact lens case If you will be spending the night, please bring personal care items and leave them in the car until you are taken to your room after surgery. Leave ALL valuables at home. If any of these instructions conflict with those you received from the surgeon, please seek clarification from your surgeon's office. DEEP BREATHING EXERCISES This exercise helps promote good air exchange and helps to prevent pneumonia after surgery. Breathe in slowly and deeply through the nose. Hold your breath for a few seconds and then exhale slowly through the mouth. Repeat this three times and then cough.Coughing helps to clear your lungs. If you have had a surgery with an incision into your abdomen or chest, press gently against your incision with a pillow or a folded blanket when you cough. Please be aware - it may not be duncan to cough following some types of surgeries involving the eyes, ears, sinuses and throat. Always follow your doctor's instructions. LEG EXERCISE These exercises help promote good circulation and help to prevent blood clots after surgery. Point your toes to the ceiling and then point them to the wall. Do this slowly about 15-20 times. You may also move your feet in circles. Do the exercise that is most comfortable for you. If you have had surgery involving your shoulder or arm, we recommend you move your fingers. PRACTICING We ask that you begin practicing these exercises before your surgery. After surgery try to do both exercises at least every 2 hours during the day and early evening. SURGICAL SITE INFECTION PREVENTION What is a Surgical Site Infection? Infection can happen to the area of the body where surgery is done. This is called a surgical site infection (SSI). A SSI does not happen very often. Can SSIs be treated? Antibiotics are used to treat SSI. Some patients may need another surgery to treat the infection. The doctor will discuss treatment options with you. What are some of the things that hospitals are doing to prevent SSIs? Soap and water or alcohol hand rub are used before and after caring for each patient. Special soap is used to clean surgery workers hands and arms just before the surgery. Masks, gowns, gloves and hair covers are worn during the surgery to keep the area clean. Hair in the surgery area may be removed with clippers (not razors). A special soap that kills germs is used to clean the skin at the surgery site. Antibiotics may be given before the surgery starts. What can you do to prevent SSIs? Before surgery: You may be asked to shower or bathe with a special soap that kills germs the night before and the day of surgery. Use the soap as you were told. If you smoke, stop or cut down. Ask your doctor about ways to quit. Do not shave near where you will have surgery. Shaving can irritate the skin and make it easier to get and infection. After surgery: Be sure that the doctors and nurses clean their hands before and after touching you. Be sure your family and friends clean their hands before and after visiting you. Do not be afraid to remind them. * Care for your wound at home as told by your doctor or nurse * Call your doctor right away if you have fever, redness, increased pain, or drainage at the surgery site. Further questions? Contact the doctor, nurse or the Infection Prevention and Control department if you have any questions. PATIENT RIGHTS AND RESPONSIBILITIES As a patient at [facility], you have the right to: Receive medical care and be informed of who is taking care of you Be treated with dignity and respect Have a family member/service representative of choice and your physician notified of your admission Receive information and actively participate in decisions about your care and treatment Refuse care, treatment and services Decide who may provide your support and speak for you Access bahai and spiritual services Participate in ethical issues and questions about your care Receive private and confidential care Have appropriate assessment and management of your pain Know guest visitation restrictions or limitations Have an advance directive Access protective services Consent or refuse to participate in research studies or production or recordings, films or other images Have resolution of your complaints Receive information of hospital charges and payment methods Patient/patient service representative responsibilities are to: Provide information about health status to facilitate care, treatment and services Follow the treatment, plan, keep appointments and speak up when you do not understand the plan Respect the rights of other patients and healthcare personnel Follow organizational rules and regulations that support quality care and a safe environment Fulfill financial obligations as promptly as possible documented in this encounter [facility] 07-18-2024 Miscellaneous Notes Patient was given Lai surgery arrival time on 07/22 of 9 am. I also sent the patient his access code to sign up for mychart. documented in this encounter [facility] 07-18-2024 Telephone encounter Note Patient was given Lai surgery arrival time on 07/22 of 9 am. I also sent the patient his access code to sign up for mychart. [facility] 07-16-2024 Miscellaneous Notes Surgery Scheduling Request 07/16/24 Patient: Deon Phoenix : 1965 Surgical Procedure(s): Nasal endoscopy, biopsy, direct laryngoscopy, biopsy Side(s):left Anesthesia: General Surgery Time: 20 minutes Facility Preference: No preference Post Op Destination: Outpatient Admission status: Outpatient Estimated length of stay: 0 days Preop Anesthesia Appointment?: Yes needs to be scheduled Lab Testing?: No Medical Clearance Required?: No Does medical clearance include perioperative management of anticoagulants? No Which anticoagulants need to be addressed? None Stereotactic Navigation? No Nerve Monitor? No Special Equipment? None When should patient follow up after surgery? 2 weeks Additional Comments: Aidan documented in this encounter [facility] 07-16-2024 Telephone encounter Note Surgery Scheduling Request 07/16/24 Patient: Deon Leti Gato OLIVASB: 1965 Surgical Procedure(s): Nasal endoscopy, biopsy, direct laryngoscopy, biopsy Side(s):left Anesthesia: General Surgery Time: 20 minutes Facility Preference: No preference Post Op Destination: Outpatient Admission status: Outpatient Estimated length of stay: 0 days Preop Anesthesia Appointment?: Yes needs to be scheduled Lab Testing?: No Medical Clearance Required?: No Does medical clearance include perioperative management of anticoagulants? No Which anticoagulants need to be addressed? None Stereotactic Navigation? No Nerve Monitor? No Special Equipment? None When should patient follow up after surgery? 2 weeks Additional Comments: Aidan [facility] 07-16-2024 History of Present illness Narrative Images from the original note were not included. [facility] - ENT [address] , [place] [id number] SUBJECTIVE: Patient ID (1965): Doen Phoenix is a 58 y.o. male presents today for Chief Complaint Patient presents with Avid tonsil nasopharynx concern for malignancy HPI: Deon is seen in consultation per the request of Dr Yudith Escoto MD for malignant neoplasm of tonsil. He initially had CT imaging done during a wellness check, which prompted him to obtain a PET CT based on the results. Scan demonstrated asymmetry in the left nasopharynx and oropharynx. He himself is at his baseline.He denies swallowing issues or voice changes. He notes a childhood history of environmental allergies treated with AIT. He also notes a history of nasal trauma. He does currently experience left-sided nasal congestion. Denies any epistaxis or worsening baseline sinonasal issues.No previous issues of dysphonia, dysphagia, odynophagia, otalgia. No recent weight loss. Otherwise has no ENT-related concerns. He smokes 0.5ppd for 40 years. HISTORY: Past Medical History: Diagnosis Date Cancer ([facility]) History reviewed. No pertinent surgical history. Family History Problem Relation Age of Onset No Known Problems Mother No Known Problems Father Social History Socioeconomic History Marital status: Spouse name: Not on file Number of children: Not on file Years of education: Not on file Highest education level: Not on file Occupational History Not on file Tobacco Use Smoking status: Unknown Smokeless tobacco: Not on file Substance and Sexual Activity Alcohol use: Not on file Drug use: Not on file Sexual activity: Not on file Other Topics Concern Not on file Social History Narrative Not on file Social Drivers of Health Financial Resource Strain: Not on file Food Insecurity: Not on file Transportation Needs: Not on file Physical Activity: Not on file Stress: Not on file Social Connections: Not on file Interpersonal Safety: Not on file Housing Instability: Not on file No Known Allergies Current Outpatient Medications Medication Sig Dispense Refill meloxicam (MOBIC) 15 mg tablet Take 1 tablet (15 mg total) by mouth daily with breakfast. No current facility-administered medications for this visit. REVIEW OF SYSTEMS: Review of Systems Constitutional: Negative for chills. HENT: Negative for ear discharge, ear pain, sore throat and trouble swallowing. Eyes: Negative for discharge and itching. Respiratory: Positive for cough and shortness of breath. Cardiovascular: Negative for chest pain and leg swelling. Gastrointestinal: Negative for diarrhea, nausea and vomiting. Endocrine: Negative for cold intolerance and heat intolerance. Genitourinary: Negative for enuresis and flank pain. Musculoskeletal: Negative for gait problem and joint swelling. Skin: Negative for color change and pallor. Neurological: Negative for dizziness and headaches. Hematological: Does not bruise/bleed easily. Psychiatric/Behavioral: Negative for decreased concentration and dysphoric mood. Data Reviewed: CT Low Dose: PET CT: PHYSICAL EXAMINATION: Temp 36.3 C (97.3 F) Ht 170.2 cm (5' 7 ) Wt 81.7 kg (180 lb 3.2 oz) BMI 28.22 kg/m Constitutional: Healthy, alert, cooperative, and in no distress and normal ablility to communicate . Voice normal quality. Head/Face: Normocephalic, without obvious abnormality, salivary glands normal, atraumatic, sinuses nontender, and facial nerve intact Eyes: No gross abnormalities., EOMI, no nystagmus, and no lid ptosis Nose: External nose appears normal, septum midline, normal mucosa, normal turbinates, and no nasal polyps or masses Oral: normal lips, normal gums, normal hard palate, normal anterior tongue, oral mucosa moist, and no upper teeth Oropharynx: normal-appearing mucosa, no pharyngitis, no exudate, tonsillar hypertrophy, left greater than right, slightly firm upon palpation on the left, and normal soft palate and uvula Nasopharynx: The nasopharynx was examined with a mirror, unable to view due to hyperactive gag reflex, and See procedure note., Hypopharynx: The hypopharynx was examined by mirror, unable to view due to hyperactive gag reflex, and See procedure note., Larynx: The larynx was examined with a mirror, unable to view due to hyperactive gag reflex., and See procedure note. TMJ: no pain, crepitus, or trismus Neck:normal, supple, no adenopathy, thyroid normal in size, no nodules or tenderness, no neck masses palpable, and carotids normal Heart: Regular rate Respiration: No stridor, Normal respiratory effort. Neurologic: Grossly normal Alert Oriented X 3 Affect normal Cranial nerves 2 -12 grossly intact Procedure Note: Flexible Laryngoscopy Pre-operative Diagnosis: Hyperactive gag Post-operative Diagnosis: same Surgeon: LILY STRATTON MD Anesthesia: Oxymetazoline and 4% Lidocaine Endoscopy Type: Flexible Laryngoscopy Procedure Details: The patient was placed in the sitting position. After topical anesthesia and decongestant applied, a flexible laryngoscope was passed. The nasal cavities, nasopharynx, oropharynx, hypopharynx, and larynx were all examined. Vocal cords were examined during respiration and phonation. The following findings were noted: Findings: No pus, no polyps, nasopharynx and eustachian tube are normal, Midline adenoid-like tissue that extended slightly to the left Base of the tongue and epiglottis appear normal, vocal cords are mobile and without lesion, subglottic space and pyriform sinuses appear normal, fullness along posterior aspect of posterior tonsillar fossa Condition: The procedure was successful and and tolerated well. Complications: None ASSESSMENT/PLAN: Deon Phoenix presents today for malignant neoplasm of tonsil. We reviewed his PET CT scan results in office today, which revealed thickening in the nasopharyngeal soft tissue with intense FDG uptake and focus of activity in the left nasopharynx. There is also prominent tonsillar imaging activity, left greater than right. The patient underwent a flexible laryngoscopy during the visit today. The results were reviewed and discussed with the patient. I did appreciate left greater than right tonsillar hypertrophy and fullness along the posterior aspect of the posterior tonsillar fossa on the left. I also appreciated midline adenoid-like tissue that extended slightly to the left. However, given his smoking history and the asymmetry in tonsillar tissue, I would like him to obtain a CT neck STAT and pursue a DL with biopsy for further evaluation and to confirm the etiology of this tissue. Indications, risks, benefits, and possible complications were discussed. I will see him back post op. In the meantime, he should start Flonase and Astelin for nasal congestion, left worse than right. Plan: 1) Obtain CT neck STAT 2) Pursue DL with biopsy 3) Start Flonase and Astelin 4) Follow up post op Scribe Statement: Scribed for and in the presence of LILY STRATTON MD by Oniel Dash (scribe). Oniel Dash 07/16/2024 9:17 AM Provider Statement: I LILY STRATTON MD personally performed the services described in the documentation as described by the above named scribe in my presence. It is both accurate and complete at the time of final signature. Counseling: The following elements of medical decision making were considered during this visit: Reviewed and summarized previous records . The patient was counseled regarding prognosis, risks and benefits of treatment options, impressions, importance of compliance with treatment and risk factor reductions. The patient verbalized understanding and agreement to the plan. Please note that parts of this chart were generated using voice recognition Dis[employer] dictation software. Although every effort was made to ensure the accuracy of this automated drain tiler, some errors in drain tiler may have occurred. Karmen Marks MA 07/16/24 0910 documented in this encounter [facility] [employer] 07-16-2024 Instructions Oniel Dash - 07/16/2024 9:30 AM EST Deon Phoenix presents today for malignant neoplasm of tonsil. We reviewed his PET CT scan results in office today, which revealed thickening in the nasopharyngeal soft tissue with intense FDG uptake and focus of activity in the left nasopharynx. There is also prominent tonsillar imaging activity, left greater than right. The patient underwent a flexible laryngoscopy during the visit today. The results were reviewed and discussed with the patient. I did appreciate left greater than right tonsillar hypertrophy and fullness along the posterior aspect of the posterior tonsillar fossa. I also appreciated midline adenoid-like tissue that extended slightly to the left. I do not think these are significantly concerning. However, given his smoking history and the asymmetry in tonsillar tissue, I would like him to obtain a CT neck STAT and pursue a DL with biopsy for further evaluation and to confirm the etiology of this tissue. Indications, risks, benefits, and possible complications were discussed. I will see him back post op. In the meantime, he should start Flonase and Astelin for nasal congestion, left worse than right. documented in this encounter [facility] 05-06-2024 History of Present illness Narrative Images from the original note were not included. Subjective Patient ID: Deon Phoenix is a 58 y.o. male. Chief Complaint: Follow-up of the Right Shoulder (XR B/L R shoulder Scope TSCNCO 12/15/23 (MTP) 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, SYSTEMS SPEC: L shoulder pain //) and Pain of the Left Shoulder Last Surgery: No surgery found Last Surgery Date: No surgery found HPI Deon comes in today he has been having [...] worsen or fail to improve. Consider giving nxvp-jqs-vtsanur wrist supports to help with your pain [...] and bursitis symptoms. documented in this encounter [facility] 05-06-2024 Instructions BENJAMIN Bassett - 05/06/2024 10:30 AM EST Consider giving qtre-htk-emdwejo wrist supports to help with your pain [...] and bursitis symptoms. documented in this encounter [facility] 02-26-2024 History of Present illness Narrative Subjective Patient ID: Deon Phoenix [...] during the daytime. documented in this encounter [facility] 02-26-2024 Instructions BENJAMIN Bassett - 02/26/2024 9:00 [...] during the daytime. documented in this encounter [facility] 02-23-2024 Telephone encounter Note Med refill [facility] 02-23-2024 Miscellaneous Notes Med refill documented in this encounter [facility] Evaluation note Diagnosis Bilateral shoulder pain, unspecified chronicity- Primary Bilateral wrist pain documented in this encounter [facility]* Diagnosis Dysfunction of right rotator cuff documented in this encounter [facility]* Diagnosis S/P arthroscopy of right shoulder- Primary documented in this encounter [facility] HealthcareEvaluation note* Diagnosis Nasal congestion- Primary Other diseases of nasal cavity and sinuses Malignant neoplasm of tonsil ([facility]) Malignant neoplasm of tonsil documented in this encounter [facility]* Diagnosis Malignant neoplasm of tonsil ([facility])- Primary Malignant neoplasm of tonsil documented in this encounter [facility]* Diagnosis Malignant neoplasm of tonsil (CMS-HCC) Malignant neoplasm of tonsil Nasal congestion Other diseases of nasal cavity and sinuses Preop testing- Primary Unspecified pre-operative examination Encounter for preadmission testing Malignant neoplasm of tonsil (CMS-HCC) Malignant neoplasm of tonsil Nasal congestion Other diseases of nasal cavity and sinuses [facility] Diagnosis Malignant neoplasm of tonsil (CMS-HCC)- Primary Malignant neoplasm of tonsil [facility] Diagnosis Left elbow pain Pain in joint, upper arm Left wrist pain Pain in joint, forearm Acute gout of left wrist, unspecified cause documented in this encounter [facility] Healthcare[facility]* Diagnosis Malignant neoplasm of tonsil (CMS-HCC)- Primary Malignant neoplasm of tonsil [facility] Narrative No data available for this section [facility] Hospital Discharge instructions No data available for this section [facility] InstructionsNot on filedocumented in this encounter [facility] filedocumented in this [facility] filedocumented in this [facility] filedocumented in this [facility] filedocumented in [facility] No data available for this section [facility] Summary Purpose Family History No Family History Records FoundNo Family History Records FoundNo Family History Records Found No data available for this section No Family History Records FoundNo Family History [...] Records FoundNo Status Records FoundNo Status Records FoundNo Status Records FoundNo Status Records FoundNo Status Records FoundNo Status Records FoundNo Status Records Found INFORMATION SOURCE (unrecogn ized section and content) DATE CREATED AUTHOR 11/02/2022 [facility] DATE CREATED AUTHOR AUTHOR'S ORGANIZ ATION 07/19/2024 [facility] DATE CREATED AUTHOR AUTHOR'S ORGANIZ ATION 07/21/2024 [facility] DATE CREATED AUTHOR AUTHOR'S ORGANIZ ATION 11/05/2024 [facility] DATE CREATED AUTHOR AUTHOR'S ORGANIZ ATION 11/05/2024 [facility] DATE CREATED AUTHOR AUTHOR'S ORGANIZ ATION 11/07/2024 [facility] DATE CREATED AUTHOR AUTHOR'S ORGANIZ ATION 11/10/2024 [facility] DATE CREATED AUTHOR AUTHOR'S ORGANIZ ATION 12/10/2024 [facility] Reason for Visit (unrecogniz ed section and content) Reason Comments Follow-up XR B/L R shoulder Sc ope TSCNCO 12/15/23 (MTP) 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, SYSTEMS SPEC: L shoulder pain Pain Reason Comments Post-op Visit Reason Comments Avid tonsil nasopharynx concern for jacob gnancy Specialty Diagnoses / Procedures Referred By Diamante keller Referred To Contact Otolaryngology Diagnoses Malignant neoplasm of tonsil (CMS-HCC) Yudith Escoto MD [address] [place] [address] [address] [place] [address] Phone: tel: fax: Lily Stratton MD [address] [facility] [place] [address] Phone: tel: fax: Referral ID Status Reason Start Date Expiration Date Visits Requested Visits Authorized [id number] Pending Review Specialty Services Required 07/15/2024 07/15/2025 1 1 Reason Comments Post-op Reason Comments Pain Reason Comments malignant neoplasm of tonsil Care Teams (unrecognized sec tion and content) Dirt Bike Racer Relationship Specialty Start Date End Date Aries Tang MD [address] [place] [id number] PCP - General Family Medicine 4/11/24 Dirt Bike Racer Relationship Specialty Start Date End Date Aries Tang MD [address] [place] [facility] [address] PCP - General Family Medicine 10/12/23 Dirt Bike Racer Relationship Specialty Start Date End Date Aries Tang MD [address] [facility] [place] [address] PCP - General Family Medicine 10/12/23 Dirt Bike Racer Relationship Specialty Start Date End Date Aries Tang MD [address] [facility] [place] [address] PCP - General Family Medicine 07/17/24 Dirt Bike Racer Relationship Specialty Start Date End Date Aries Tang MD [address] [facility] [place] [address] PCP - General Family Medicine 07/17/24 Dirt Bike Racer Relationship Specialty Start Date End Date Aries Tang MD [address] [facility] [place] [address] PCP - General Family Medicine 07/17/24 Dirt Bike Racer Relationship Specialty Start Date End Date Aries Tang MD [address] [facility] [place] [address] PCP - General Family Medicine 07/17/24 Dirt Bike Racer Relationship Specialty Start Date End Date Aries Tang MD [address] [facility] [place] [address] PCP - General Family Medicine 07/17/24 Dirt Bike Racer Relationship Specialty Start Date End Date Aries Tang MD [address] [place] [address] PCP - General Family Medicine 10/12/23 Dirt Bike Racer Relationship Specialty Start Date End Date Aries Tang MD PCP - General Family Medicine 10/12/23 Dirt Bike Racer Relationship Specialty Start Date End Date Aries Tang MD [address] [facility] [place] [address] PCP - General Family Medicine 07/17/24 FOR RECORDS PERTAINING TO PATIENTS WHO ARE [...] BE BASED ON THE PRIMARY CLINICAL RECORDS. [facility]. provides no warranty or guarantee of the accuracy or completeness of information in this document.
--- NOTE | 2024-12-29 15:13 | ECG_ITS ---
[facility] Test Date: 2024-12-29 Pat Name: ELIZABETH PHOENIX Department: Room: - Gender: Male Hospital Aide: : 1965 Requested By: 0923 Order Number: [id number] Reading MD: HUNG DAMON M.D. Measurements Intervals [place] Rate: 93 P: 74 MO: 134 QRS: 84 QRSD: 108 T: 68 QT: 358 QTc: 409 Interpretive Statements 1100 Sinus rhythm 2440 Incomplete right bundle branch block 9130 borderline ECG No previous ECG available for comparison Electronically Signed On 12-30-2024 6:55:51 EDT by HUNG DAMON M.D.
[2024-12-29 15:37] LABS: Basophils Percent Auto 0.6 % (0.2-2.0); Eosinophils Absolute Auto 0.2 10^3/uL (0.0-0.7); Eosinophils Percent Auto 2.8 % (0.9-7.0); Hematocrit 36.5 % (42.0-54.0); Immature Granulocytes Abs Auto 0.01 10^3/uL (0.00-0.03); Immature Granulocytes Pct Auto 0.1 % (0.0-0.5); Lymphocytes Absolute Auto 2.2 10^3/uL (1.2-3.8); Lymphocytes Percent Auto 30.8 % (20.5-60.0); Mean Corpuscular HGB Conc 32.9 g/dL (29.9-35.2); Mean Corpuscular Hemoglobin 29.8 pg (25.9-34.0); Mean Corpuscular Volume 90.6 fL (80.0-94.0); Mean Platelet Volume 8.8 fL (9.5-13.5); Monocytes Absolute Auto 0.6 10^3/uL (0.3-0.8); Monocytes Percent Auto 7.6 % (1.7-12.0); Neutrophils Absolute Auto 4.2 10^3/uL (1.4-6.5); Neutrophils Percent Auto 58.1 % (43.0-75.0); Platelet Count 316 10^3/uL (150-450); Red Blood Count 4.03 10^6/uL (4.70-6.10); Red Cell Distribution Width 12.9 % (11.0-15.0); White Blood Count 7.2 10^3/uL (4.0-11.0)
[2024-12-29 15:52] LABS: Troponin I High Sensitivity <4.0 pg/mL (4.0-76.1)
--- NOTE | 2024-12-29 15:53 | ED.GENADUL1 ---
HPI HPI - General Adult General Chief complaint: Extremity Problem, Nontraumatic Stated complaint: LE EDEMA Time Seen by Provider: 12/29/24 15:13 Source: patient Mode of arrival: walk-in History of Present Illness HPI narrative: 59-year-old male presents here to the emergency room chief complaint bilateral lower extremity swelling. He states has had lower extremity swelling for the last 3 to 4 days. He has no pain in his lower extremities. No known history of peripheral edema or blood clots. 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 He has been able to get up and out of his truck and do all of his work here. He has no pain in his calf. +2 edema noted with pulses noted. patient denies Shortness of breath or chest pain. Related Data Home Medications ?Medication ?Instructions ?Recorded ?Confirmed No Known Home Medications 12/29/24 12/29/24 Allergies Allergy/AdvReac Type Severity Reaction Status Date / Time No Known Drug Allergies Allergy Verified 09/20/23 20:20 Review of Systems ROS Status of ROS 10 or more systems reviewed and unremarkable except as noted in history and below PFSH PFS Social History Little interest or pleasure in doing things: not at all Feeling down, depressed, or hopeless: not at all Exam Narrative Exam Narrative: All Systems are negative except as noted/marked.All systems reviewed and otherwise negative Nurses note and vital signs reviewed and patient is not hypoxic. General: The patient appears well and in no apparent distress. Patient is resting comfortably on cart. Skin: Warm, dry, no pallor noted. There is no rash noted. Head: Normocephalic, atraumatic Eye: Normal conjunctiva, no drainage, EOMI. PERRL Ears, Nose, Mouth, and Throat: oral mucosa is moist. Nares patent. Mouth without vesicles. Ear canals patent. Tm's without Erythema Cardiovascular: Regular Rate and Rhythm Respiratory: Patient is in no distress, no accessory muscle use, lungs are clear to auscultation, no wheezing, rales or rhonchi Back: non-tender, no CVA tenderness bilaterally to percussion. GI: Normal bowel sounds, no tenderness to palpation, no masses appreciated. No rebound, guarding, or rigidity noted. Musculoskeletal: bilateral extremity edema. no evidence of calf pain or tenderness. +2 pitting edema, symmetrical pulses noted bilaterally Neurological: A&O x4, normal speech Psychiatric: Cooperative Constitutional Vital Signs, click to edit/add: Last Vital Signs Temp 98.7 F 12/29/24 15:10 Pulse 96 H 12/29/24 15:10 Resp 16 12/29/24 15:10 BP 135/84 12/29/24 15:10 Pulse Ox 98 12/29/24 15:10 O2 Del Method Room Air 12/29/24 15:10 Course Vital Signs Vital signs: Vital Signs Temperature 98.7 F 12/29/24 15:10 Pulse Rate 96 H 12/29/24 15:10 Respiratory Rate 16 12/29/24 15:10 Blood Pressure 135/84 12/29/24 15:10 Pulse Oximetry 98 12/29/24 15:10 Oxygen Delivery Method Room Air 12/29/24 15:10 Temperature 98.7 F 12/29/24 15:10 Pulse Rate 96 H 12/29/24 15:10 Respiratory Rate 16 12/29/24 15:10 Blood Pressure 135/84 12/29/24 15:10 Pulse Oximetry 98 12/29/24 15:10 Oxygen Delivery Method Room Air 12/29/24 15:10 Medical Decision Making MDM Narrative Medical decision making narrative: 59-year-old male presents here to the emergency room chief complaint bilateral lower extremity swelling. He states has had lower extremity swelling for the last 3 to 4 days. He has no pain in his lower extremities. No known history of peripheral edema or blood clots. 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 He has been able to get up and out of his truck and do all of his work here. He has no pain in his calf. +2 edema noted with pulses noted. patient denies Shortness of breath or chest pain. Patient presented to the emergency room today with complaint of bilateral lower extremity edema. Blood work including CBC and CMP were reviewed. BUN/creatinine within normal limits cardiac enzymes are normal including BNP. 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 He has no calf pain or tenderness on examination. I believe the swelling is most likely due to humidity and lower edema. Patient's EKG showed normal sinus rhythm with right bundle branch block. I have no previous to compare to I did speak to Dr. Tang regarding this patient's care we are going to order outpatient ultrasound for the patient to have performed. Follow-up with Dr. Tang. Patient with plan of care. Patient is told to keep legs up and elevated with legs above his heart is much as he can at night. If he develops any shortness of breath or chest pain return to the emergency room. Patient is had no symptoms of CHF or chest pain. Differential Diagnosis Differential Diagnosis: peripheral edema, dvt Medical Records Medical records reviewed: Yes I reviewed the patient's medical records Lab Data Lab results reviewed: Yes I reviewed the patient's lab results Labs: Lab Results 12/29/24 Range/Units 15:25 WBC 7.2 (4.0-11.0) 10^3/uL RBC 4.03 L (4.70-6.10) 10^6/uL Hgb 12.0 L (14.0-18.0) g/dL Hct 36.5 L (42.0-54.0) % MCV 90.6 (80.0-94.0) fL MCH 29.8 (25.9-34.0) pg MCHC 32.9 (29.9-35.2) g/dL RDW 12.9 (11.0-15.0) % Plt Count 316 (150-450) 10^3/uL MPV 8.8 L (9.5-13.5) fL Neut % (Auto) 58.1 (43.0-75.0) % Lymph % (Auto) 30.8 (20.5-60.0) % [place] % (Auto) 7.6 (1.7-12.0) % Eos % (Auto) 2.8 (0.9-7.0) % Baso % (Auto) 0.6 (0.2-2.0) % Neut # (Auto) 4.2 (1.4-6.5) 10^3/uL Lymph # (Auto) 2.2 (1.2-3.8) 10^3/uL [place] # (Auto) 0.6 (0.3-0.8) 10^3/uL Eos # (Auto) 0.2 (0.0-0.7) 10^3/uL Baso # (Auto) 0.0 (0.0-0.1) 10^3/uL Abs Immat Gran (auto) 0.01 (0.00-0.03) 10^3/uL Imm/Tot Granulo (auto) 0.1 (0.0-0.5) % Sodium 142 (136-145) mmol/L Potassium 3.6 (3.5-5.1) mmol/L Chloride 104 (98-107) mmol/L Carbon Dioxide 25.3 (21.0-32.0) mmol/L Anion Gap 16.3 BUN 15.0 (7.0-18.0) mg/dL Creatinine 0.72 (0.70-1.30) mg/dL Est GFR ( Amer) >60 (>=60 mL/min/1.73m^2) Est GFR (Non-Af Amer) >60 (>=60 mL/min/1.73m^2) BUN/Creatinine Ratio 20.8 Glucose 114 H (74-106) mg/dL Calcium 9.0 (8.5-10.1) mg/dL Total Bilirubin 0.3 (0.2-1.0) mg/dL AST 15 (15-37) U/L ALT 25 (16-63) U/L Alkaline Phosphatase 120 H (46-116) U/L Troponin I High Sens <4.0 L (4.0-76.1) pg/mL NT-Pro-B Natriuret Pep 82.0 (<=900.0) pg/mL Total Protein 6.4 (6.4-8.2) g/dL Albumin 2.6 L (3.4-5.0) g/dL Globulin 3.8 g/dL Albumin/Globulin Ratio 0.7 ECG Data Interpretation: 1525 normal sinus rhythm with rate 93 bpm GA interval 134 ms QRS duration 108 ms sinus rhythm with right bundle branch block noted no ST elevation or depression no STEMI, no comparison Discharge Plan Discharge Chief Complaint: Extremity Problem, Nontraumatic Clinical Impression: Edema, peripheral Patient Disposition: Home, Self-Care Time of Disposition Decision: 16:25 Condition: Good Prescriptions / Home Meds: No Action No Known Home Medications Print Language: Swiss Instructions: Leg Edema (ED) Referrals: Aries Tang MD [Primary Care Provider, Family Practice] - 1 week
[2024-12-29 16:00] LABS: Alanine Aminotransferase 25 U/L (16-63); Albumin Globulin Ratio 0.7; Albumin Level 2.6 g/dL (3.4-5.0); Alkaline Phosphatase 120 U/L (46-116); Anion Gap 16.3; Aspartate Amino Transferase 15 U/L (15-37); BUN Creatinine Ratio 20.8; Bilirubin Total 0.3 mg/dL (0.2-1.0); Carbon Dioxide 25.3 mmol/L (21.0-32.0); Chloride 104 mmol/L (98-107); Estimated GFR (African America >60 (>=60 mL/min/1.73m^2); Estimated GFR (Non-African Ame >60 (>=60 mL/min/1.73m^2); Globulin 3.8 g/dL; Glucose 114 mg/dL (74-106); Potassium 3.6 mmol/L (3.5-5.1); Sodium 142 mmol/L (136-145); Total Protein 6.4 g/dL (6.4-8.2)
== END 2024-12-29 16:57 | disposition home or self-care (01) ==
PROVIDERS: Physician Assistant; Emergency Provider Emergency Medicine; PCP Family Medicine
DX: R60.0 Localized edema (principal)
CPT/HCPCS: 36415; 80053; 83880; 84484; 85025; 93005; 99284

== ENCOUNTER 2025-01-15 10:53 | Outpatient (OUT) | payer BC, SELFPAY ==
--- OUTSIDE RECORDS SUMMARY | 2024-11-05 05:24 | XMS_ITS ---
Author Organization [facility] in [place] Address [address] [place] [address] Care Team Providers Care Director Of Career Services Name Role Phone Ramos Tang Primary Care Provider [phone] REASON FOR VISIT labs Encounters Encounter Location Date Provider Diagnosis [facility] [address] [place] [address] 11/05/2024 Ramos Tang Plan Of Treatment Next Appt Details Provider Name:Yudith Escoto , 03/04/2025 01:00:00 PM, [address] [place], [address], Progress Notes * PHOENIXDeon MAIER ADOB: [birth year] (59 yo M)Acc No.[id number]:11/05/2024 Patient: Deon TY :1965 A ge:59 Y S ex:Male Address:[address] [place] [address], [address] * true * Date: Generated for Printi ng/Fajohnnyg/eTransmitting on: 0 01/15/2025 10:55 AM EDT
--- OUTSIDE RECORDS SUMMARY | 2025-01-06 10:15 | XMS_ITS ---
Author Organization [facility] in [place] Address [address] [place] [address] Care Team Providers Care Hostess Party Sales Representative Name Role Phone Ramos Tang Primary Care Provider Allergies No Known Allergies REASON FOR VISIT ER f/u from 12/29 Medications Medication SIG (Take, Route, Fr equency, Duration) Notes Start Date End Date Status Nabumetone 500 MG 1 tablet Orally Twic e a day for 30 day(s) 01/06/2025 Active Social History Tobacco Use: Social History Observation Description Date Details (start date - stop date) Current Smoker 07/03/1971 - NA Tobacco Control (Standard) Question Answer Notes Tobacco use: Current smoker When did you start smoking? 07/03/1971 How often do you smoke cigarettes? Every day How many cigarettes a day do you smoke? 11-20 Additional Findings: Tobacco user Modera te cigarette smoker (10-19 cigs/day) AUDIT-C (Standard) Question Answer Notes Did you have a drink containing alcohol in the p ast year? No Points 0 Interpretation Negative Problems Problem Type SNOMED Code ICD Code Onset Dates Problem Status W/U Status Risk Notes Problem Edema (17746452) Edema (R60.9) Active confirmed Problem Arthritis (6168882) Arthritis (M19.90) Active confirmed Vital Signs Weight 181.4 lbs 01/06/2025 Height 67 in 01/06/2025 Blood pressure systolic 150 mm Hg 01/07/20 25 Blood pressure diastolic 90 mm Hg 025 BMI 28.41 kg/m2 01/06/2025 Encounters Encounter Location Date Provider Diagnosis [facility] [address] [place] [address] 01/06/2025 Ramos Tang Edema R60.9 and Arthritis M19.90 Assessments Encounter Date Diagnosis (ICD Code) Assessment Notes Treatment Notes Treatment Clinical Notes Section Notes 01/06/2025 Edema (ICD-10 - R60.9) 01/06/2025 Arthritis (ICD-10 - M19.90) Plan Of Treatment Medication Medication Name Sig Start Date Stop Date Notes Nabumetone 500 MG 1 tablet Orally Twic e a day for 30 day(s) 01/06/2025 Pending Test Test Name Order Date VC VENOUS REFLUX CK LMT 01/06/2025 Next Appt Details Provider Name:Yudith Tigist , 03/04/2025 01:00:00 PM, [address] [place], [address], Progress Notes * Deon HOSKINS ADOB: [birth year] (59 yo M)Acc No.[id number]:01/06/2025 Progress Note Patient: Deon TY Provider: Shyam Tang ([facility])MD :1965 A ge:59 Y S ex:Male Date:01/06/2025 Address:[address] [place], [place] [id number] Check In:02:13 PM ESTCheck O ut:02:51 PM EST Subjective: * Chief Complaints: * E R f/u from 12/29 * HPI: G eneral: Bilateeral leg edema- no DFOE - no orthopnea Swelling in legs some pain in knees and wrists. * Active Problem List M67.911 Unspecified disorder of synovium and tendon, right shoulder Modified On:11/13/2023W/U Status:confirmed Z00.00 Well adult Modified On:05/09/2024W/U Status:confirmed R60.9 Edema Modified On:01/06/2025W/U Status:confirmed M19.90 Arthritis Modified On:01/06/2025W/U Status:confirmed * Medical History: * Surgical History: R ight Shoulder Scope 12/26/23 * Hospitalization/Major Diagno stic Procedure: N o Hospitalization History. * Family History: F ather: . M other: , Pancreatic Cancer, diagnosed with Other malignant neoplasm of unspecified site, Diabetes mellitus without mention of complication, type II or unspecified type, not stated as uncontrolled. B rother(s): alive. S on(s): alive. D iris(s): alive. 1 brother(s) . 2 son(s) , 1 daughter(s) . . * Social History: T obacco Use: T obacco Control (Standard) T obacco use: C urrent smoker W hen did you start smoking? 0 07/03/1971 H ow often do you smoke cigarettes? E very day H ow many cigarettes a day do you smoke? 1 1-20 A dditional Findings: Tobacco user M oderate cigarette smoker (10-19 cigs/day) D rug/Alcohol: A JOHNNIE-C (Standard) D id you have a drink containing alcohol in the past year? N o P oints 0 I nterpretation N egative * Medications: N one * Allergies: N .K.D.A.no[Allergies Verified] Objective: * Vitals: W t:181.4lbs, Ht: 67 in, BP:150/90mm Hg, BMI:28.41Index, Ht-cm: 170.18 cm, Wt-k.28 kg. * Examination: A bdomen Exam:: R and L - leg edmea - 2 + Neg homans. Assessment: * Assessment: 1. E gabe - R60.9 (Primary) 2 . A rthritis - M19.90 Plan: * Treatment: * Procedure Codes: * Preventive Medicine: Screenings/Counseling: B HI ACTION PLAN Above Normal BMI Follow-up D ietary management education, guidance, and counseling T OBACCO ACTION PLAN Patient counselled on the dangers of tobacco use and urged to quit. . * * Sign off status: Completed Visit Status: C HK (Check Out) true * Provider: Shyam Tang ([facility])MD Date: 0 01/06/2025 Generated for Aloki luma/Elsie/eTransmitting on: 0 01/15/2025 10:55 AM EDT History and Physical Notes * HPI (History of Present Illness) Category Sub-Category Detail Notes Category Not es General Bilateeral leg edema- no DFOE - no orthopnea Swelling in legs some pain in knees and wrists Examination Category Sub-Category Detail Notes Category Not es Abdomen Exam: R and L - leg edmea - 2 + Neg danielns
--- OUTSIDE RECORDS SUMMARY | 2025-01-09 04:17 | XMS_ITS ---
Author Organization [facility] in [place] Address [address] [place] [address] Care Team Providers Care Product Lister Name Role Phone Ramos Tang Primary Care Provider REASON FOR VISIT hand pain Medications Medication SIG (Take, Route, Fr equency, Duration) Notes Start Date End Date Status predniSONE 10 MG 5 tabs per day for 3 days, 4 tabs per day for 3 ays, 3 tabs perday for 3 days, 2 tabs per day for 3 days, 1 tab a day for 3 days, 1/2 tab a day for 4 days Orally Once a day for 19 days 01/09/2025 Active Encounters Encounter Location Date Provider Diagnosis [facility] [address] [place] [address] 01/09/2025 Ramos Clyde Plan Of Treatment Medication Medication Name Sig Start Date Stop Date Notes predniSONE 10 MG 5 tabs per day for 3 days, 4 tabs per day for 3 ays, 3 tabs perday for 3 days, 2 tabs per day for 3 days, 1 tab a day for 3 days, 1/2 tab a day for 4 days Orally Once a day for 19 days 01/09/2025 Next Appt Details Provider Name:Yudith Escoto , 03/04/2025 01:00:00 PM, [address] [place], [address], Progress Notes * Deon [place]EN[place] ADOB: [birth year] (59 yo M)Acc No.[id number]:01/09/2025 Patient: Reggie NEALDeon :1965 A ge:59 Y S ex:Male Address:[address] [place] [address], [id number] * Refills Start predniSONE Tablet, 10 MG, Orally, 47, 5 tabs per day for 3 days, 4 tabs per day for 3 ays, 3 tabs perday for 3 days, 2 tabs per day for 3 days, 1 tab a day for 3 days, 1/2 tab a day for 4 days, Once a day, 19 days, Refills=0 * true * Date: Generated for Bj ge/Elsie/Chloesmitting on: 0 01/15/2025 10:55 AM EDT
--- OUTSIDE RECORDS SUMMARY | 2025-01-15 10:55 | XMS_ITS | Patient Health Record ---
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 Name Role Phone Ramos Baig Primary Care Provider Yudith Escoto Unavailable [phone] Allergies No Known Allergies Results Component Value Reference Range Notes BNP Reviewed date:12/29/2024 05:04:41 PM Interpretation: Performing Lab: Notes/Report: [facility] , NT Pro B Type Natriuretic Pept 82.0 <=900.0 pg/mL Performing Lab: see note ML - [facility] CBC AUTO DIFF Reviewed date:12/29/2024 05:04:41 PM Interpretation: Performing Lab: Notes/Report: [facility] , White Blood Count 7.2 4.0-11.0 10 3/uL Red Blood Count 4.03 4.70-6.10 10 6/uL Hemoglobin 12.0 14.0-18.0 g/dL Hematocrit 36.5 42.0-54.0 % Mean Corpuscular Volume 90.6 80.0-94.0 fL Mean Corpuscular Hemoglobin 29.8 25.9-34.0 pg Mean Corpuscular HGB Conc 32.9 29.9-35.2 g/dL Red Cell Distribution Width 12.9 11.0-15.0 % Platelet Count 316 150-450 10 3/uL Mean Platelet Volume 8.8 9.5-13.5 fL Neutrophils Percent Auto 58.1 43.0-75.0 % Lymphocytes Percent Auto 30.8 20.5-60.0 % Monocytes Percent Auto 7.6 1.7-12.0 % Eosinophils Percent Auto 2.8 0.9-7.0 % Basophils Percent Auto 0.6 0.2-2.0 % Immature Granulocytes Pct Auto 0.1 0.0-0.5 % Neutrophils Absolute Auto 4.2 1.4-6.5 10 3/uL Lymphocytes Absolute Auto 2.2 1.2-3.8 10 3/uL Monocytes Absolute Auto 0.6 0.3-0.8 10 3/uL Eosinophils Absolute Auto 0.2 0.0-0.7 10 3/uL Basophils Absolute Auto 0.0 0.0-0.1 10 3/uL Immature Granulocytes Abs Auto 0.01 0.00-0.03 10 3/uL Performing Lab: see note ML - [facility] LB PROF 14(COMP METB) Reviewed date:12/29/2024 05:04:41 PM Interpretation: Performing Lab: Notes/Report: [facility] , Sodium 142 136-145 mmol/L Potassium 3.6 3.5-5.1 mmol/L Chloride 104 98-107 mmol/L Carbon Dioxide 25.3 21.0-32.0 mmol/L Anion Gap 16.3 Glucose 114 74-106 mg/dL Blood Urea Nitrogen 15.0 7.0-18.0 mg/dL Creatinine 0.72 0.70-1.30 mg/dL Estimated GFR ( Myra >60 >=60 mL/min/1.73m 2 Estimated GFR (Non- Laurie >60 >=60 mL/min/1.73m 2 BUN Creatinine Ratio 20.8 Calcium 9.0 8.5-10.1 mg/dL Bilirubin Total 0.3 0.2-1.0 mg/dL Aspartate Amino Transferase 15 15-37 U/L Alanine Aminotransferase 25 16-63 U/L Alkaline Phosphatase 120 46-116 U/L Total Protein 6.4 6.4-8.2 g/dL Albumin Level 2.6 3.4-5.0 g/dL Globulin 3.8 Albumin Globulin Ratio 0.7 Performing Lab: see note ML - [facility] Troponin I High Sensitivity Reviewed date:12/29/2024 05:04:41 PM Interpretation: Performing Lab: Notes/Report: [facility] , Troponin I High Sensitivity <4.0 4.0-76.1 pg/mL CUT-OFF POINTS HAVE BEEN ESTABLISHED BASED ON THE FOURTH UNIVERSAL DEFINITION OF MYOCARDIAL INFARCTION. THE UPPER REFERENCE LIMIT (URL) OF TROPONIN, DEFINED THE 99TH PERCENTILE OF cTnI DISTRIBUTION IN A REFERENCE POPULATION, HAS BEEN CONFIRMED THE DECISION THRESHOLD FOR DE DIAGNOSIS. 99TH PERCENTILE = 76.2 PG/ML NOTE: HIGH-SENSITIVITY TROPONIN ASSAY IS NOT INTENDED TO BE USED IN ISOLATION BUT SHOULD BE INTERPRETED IN CONJUNCTION WITH OTHER DIAGNOSTIC AND CLINICAL INFORMATION. 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 Measurements Intervals [place] Rate: 93 P: 74 [place]: 134 QRS: 84 QRSD: 108 T: 68 QT: 358 QTc: 409 Interpretive Statements 1100 Sinus rhythm 2440 Incomplete right bundle branch block 9130 borderline ECG No previous ECG available for comparison Electronically Signed On 12-30-2024 6:55:51 EDT by HUNG DAMON M.D. 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 Measurements Intervals [place] Rate: 93 P: 74 NY: 134 QRS: 84 QRSD: 108 T: 68 QT: 358 QTc: 409 Interpretive Statements 1100 Sinus rhythm 2440 Incomplete righ t bundle branch block 9130 borderline ECG No previous ECG avai lable for comparison Electronically Cesilia d On 12-30-2024 6:55:51 EDT by HUNG DAMON M.D. Dictated By: HUNG DAMON Signed By: 12/30/24 0656 DD/ 1525 TD/TT: Golf Player Assistant: Immunoglobulins A/E/G/M, Ser um Reviewed date:12/29/2024 05:04:41 PM Interpretation: Performing Lab: Notes/Report: [facility] , Immunoglobulin G, Qn, Serum 354 228-2481 mg/dL Immunoglobulin A, Qn, Serum 305 90-386 mg/dL Immunoglobulin M, Qn, Serum 97 20-172 mg/dL Immunoglobulin E, Total 101 6-495 IU/mL Performed at: [facility] [address] [id number] Physician Primary Care Sports Medicine: Jose Tolliver PhD, Phone: [phone] Performed at: [facility] [address] [id number] Physician Primary Care Sports Medicine: Katerina Murcia MD, Phone: [phone] Performing Lab: see note [facility] Angiotensin-Converting Enzym e Reviewed date:12/29/2024 05:04:42 PM Interpretation: Performing Lab: Notes/Report: [facility] , Angiotensin-Converting Enzyme 61 14-82 U/L Performed at: [facility] [address] [id number] Physician Primary Care Sports Medicine: Jose Tolliver PhD, Phone: [phone] Performing Lab: see note LC - [facility] LB URIC ACID SERUM Reviewed date:12/29/2024 05:04:42 PM Interpretation: Performing Lab: Notes/Report: [facility] , Uric Acid 4.3 3.5-7.2 mg/dL Performing Lab: see note - [facility] LDH Reviewed date:12/29/2024 05:04:42 PM Interpretation: Performing Lab: Notes/Report: [facility] , Lactate Dehydrogenase 161 85-227 U/L Performing Lab: see note ML - [facility] LB CBC AUTO DIFF Reviewed date:12/29/2024 05:04:42 PM Interpretation: Performing Lab: Notes/Report: [facility] , White Blood Count 8.1 4.0-11.0 10 3/uL Red Blood Count 4.86 4.70-6.10 10 6/uL Hemoglobin 14.7 14.0-18.0 g/dL Hematocrit 43.7 42.0-54.0 % Mean Corpuscular Volume 89.9 80.0-94.0 fL Mean Corpuscular Hemoglobin 30.2 25.9-34.0 pg Mean Corpuscular HGB Conc 33.6 29.9-35.2 g/dL Red Cell Distribution Width 12.7 11.0-15.0 % Platelet Count 271 150-450 10 3/uL Mean Platelet Volume 8.6 9.5-13.5 fL Neutrophils Percent Auto 57.1 43.0-75.0 % Lymphocytes Percent Auto 29.9 20.5-60.0 % Monocytes Percent Auto 9.7 1.7-12.0 % Eosinophils Percent Auto 2.6 0.9-7.0 % Basophils Percent Auto 0.5 0.2-2.0 % Immature Granulocytes Pct Auto 0.2 0.0-0.5 % Neutrophils Absolute Auto 4.6 1.4-6.5 10 3/uL Lymphocytes Absolute Auto 2.4 1.2-3.8 10 3/uL Monocytes Absolute Auto 0.8 0.3-0.8 10 3/uL Eosinophils Absolute Auto 0.2 0.0-0.7 10 3/uL Basophils Absolute Auto 0.0 0.0-0.1 10 3/uL Immature Granulocytes Abs Auto 0.02 0.00-0.03 10 3/uL Performing Lab: see note ML - [facility] PET skull to mid thigh Reviewed date:06/21/2024 01:04:43 PM Interpretation: Performing Lab: Notes/Report: Source Facility: [facility]-[address] [place] [address] [place] [address] PET Report Signed Patient: DEON PHOENIX MR#: [id number] : 1965 Acct:[id number] Age/Sex: 58 / M ADM Date: 06/17/24 Loc: PETCT Attending Dr: Harry Baig M.D. Ordering Physician: Harry Baig M.D. Date of Service: 06/17/24 Procedure(s): PET skull to mid thigh Accession Number(s): [id number] cc: Harry Baig M.D. The [place] [address] Patient Name: DEON PHOENIX MRN: [id number] date: 1965 Sex: M Assigned Patient Location: PETCT Current Patient Location: PETCT Accession/Order Number: [id number] Exam Date: 06/17/2024 16:23 Report Date: 06/20/2024 23:39 At the request of: HARRY BAIG Procedure: PET skull to mid thigh PET/CT: HISTORY: Pulmonary nodule. COMPARISON: CT chest low-dose lung screening 06/03/2024. TECHNIQUE: The patient was injected with 14.69 mCi of F-18 fluorodeoxyglucose (FDG), and an emission scan was performed from the base of the skull to the mid thigh. Noncontrast CT was performed for attenuation correction and anatomic localization. The blood glucose level was 77 mg/dl. The uptake time was 49 minutes. FINDINGS: HEAD AND NECK: There is thickening of the nasopharyngeal soft tissues with intense FDG uptake on image 16 with SUV max 11.7 and there is a focus of increased activity in the left nasopharynx on image 21 with SUV max 16.4. There is prominent activity within the tonsils which is somewhat more intense in the left than the right with SUV max 13.6 on the left and 8.2 on the right. CHEST: The SUVmax of the mediastinum = 3.0 using the patient's body weight as the normalization method. The previously noted nodular density in the lingula shows no FDG uptake and appears decreased in size at 1.1 x 0.6 cm, previously 1.9 x 1.6 cm. This appears to be likely due to resolving atelectasis. There are multiple hypermetabolic bilateral axillary and subpectoral lymph nodes including for example a left axillary lymph node on image 71 with SUV max 16.7 measuring 1.9 x 0.9 cm, previously measuring 1.8 x 1.2 cm. There is a right axillary node on image 66 with SUV max 11.8 measuring 1.4 x 1 cm, previously 1.8 x 1 cm. There is a subcentimeter hypermetabolic lymph node in the subcarinal region at azygoesophageal recess and there are small hypermetabolic bilateral hilar lymph nodes. ABDOMEN AND PELVIS: There are bilateral hypermetabolic external iliac and inguinal lymph nodes including for example a right inguinal lymph node on image 260 with SUV max 12.6 measuring 1.5 x 1.1 cm. Otherwise physiologic distribution of activity. MUSCULOSKELETAL SYSTEM: There is moderate, likely inflammatory related activity about the shoulders bilaterally. There is an otherwise physiologic distribution of activity in the bone marrow. ADDITIONAL CT FINDINGS: There are moderate emphysematous changes in the lungs. There is diffuse atherosclerotic calcification of the aorta, iliac and femoral arteries. There are multiple diverticula in the descending and sigmoid colon with no acute diverticulitis. There is irregular sclerosis in the bilateral femoral head suspicious for avascular necrosis. There is transitional anatomy at the lumbosacral junction with a partially sacralized L5 on the left and a pseudoarticulation at L5-S1. There are bulky anterior osteophytes in the mid thoracic spine consistent with DISH and there are moderate degenerative changes of the lumbar spine. PET/PET skull to mid thigh IMPRESSION: 1. The previously noted lingular opacity appears decreased in size, non-FDG avid and is likely due to atelectasis. 2. Hypermetabolic bilateral axillary, external iliac and inguinal lymphadenopathy suspicious for a lymphoproliferative process such as lymphoma. Consider tissue sampling. 3. Thickening of the nasopharyngeal soft tissues with intense FDG uptake and focus of activity in the left nasopharynx. There is also prominent tonsillar activity, left greater than right. This may be inflammatory or due to malignancy. Consider direct visualization and/or contrast-enhanced CT or MRI of the neck. 4. Additional CT findings as described above including partial sacralization of L5 on the left with a pseudoarticulation. 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 Electronically authenticated by: JAVI BAIRES Date: 06/20/2024 23:39 Dictated By: Javi Baires M.D. Signed By: 06/20/24 2346 DD/ 1688 TD/TT: Golf Player Assistant: [place] [address] PET Report Signed Patient: EDDIE PHOENIX MR#: [id number] : 1965 Acct:[id number] Age/Sex: 58 / M ADM Date: 06/17/24 Loc: PETCT Attending Dr: Cindy Baig M.D. Ordering Physician: Harry Baig M.D. Date of Service: 06/17/24 Procedure(s): PET sk ull to mid thigh Accession Number(s): [id number] cc: Harry Baig M.D. [address] [address] Patient Name: DEON PHOENIX MRN: [id number] date: 1965 Sex: M Assigned Patient Location: PETCT Current Patient Loca tion: PETCT Accession/Order Numb er: [id number] Exam Date: 16:23 Report Date: 06/20/2024 23:39 At the request of: HARRY BAIG Procedure: PET skull to mid thigh PET/CT: HISTORY: Pulmonary nodule. COMPARISON: CT chest low-dose lung screening 06/03/2024. TECHNIQUE: The patie nt was injected with 14.69 mCi of F-18 fluorodeoxyglucose (FDG), and an emissi on scan was performed from the base of the skull to the mid thigh. Noncontrast C T was performed for attenuation correction and anatomic localization. The bl ood glucose level was 77 mg/dl. The uptake time was 49 minutes. FINDINGS: HEAD AND NECK: There is thickening of the nasopharyngeal soft tissues with intense FDG uptake o n image 16 with SUV max 11.7 and there is a focus of increased activity i n the left nasopharynx on image 21 with SUV max 16.4. There is prominent activit y within the tonsils which is somewhat more intense in the left than the right with SUV max 13.6 on the left and 8.2 on the right. CHEST: The SUVmax of the mediastinum = 3.0 using the patient's body weight as the normalization me thod. The previously noted nodular density in the lingula shows no FDG uptake and appears decreased in size at 1.1 x 0.6 cm, previously 1.9 x 1.6 cm. This appears to be likely due to resolving atelectasis. There are multiple hypermetabo lic bilateral axillary and subpectoral lymph nodes including for exampl e a left axillary lymph node on image 71 with SUV max 16.7 measuring 1.9 x 0.9 cm, previously measuring 1.8 x 1.2 cm. There is a right axillary node on noemi ge 66 with SUV max 11.8 measuring 1.4 x 1 cm, previously 1.8 x 1 cm. There is a subcentimeter hypermetabolic lymph node in the subcarinal region at azygoesophageal recess and there are small hypermetabolic bilateral hilar lymp h nodes. ABDOMEN AND PELVIS: There are bilateral hypermetabolic external iliac and inguinal lymph nodes including for example a right inguinal lymph node on image 260 with SUV max 12. 6 measuring 1.5 x 1.1 cm. Otherwise physiologic distribution of activity. MUSCULOSKELETAL SYST EM: There is moderate, likely inflammatory related activity about the shoulders bilaterally. There is an otherwise physiologic distribution of activity in the b one marrow. ADDITIONAL CT FINDIN GS: There are moderate emphysematous changes in the lungs. There is diffuse atherosclerotic calcification of the aorta, iliac and femoral arteries. There are multiple diverticula in the descending and sigmoid colon with no acute diverticulitis. There is irregular sclerosis in the bilateral femoral head suspici ous for avascular necrosis. There is transitional anatomy at the lumbosacral junction with a partially sacralized L5 on the left and a pseudoarticulation a t L5-S1. There are bulky anterior osteophytes in the mid thoracic spine consi stent with DISH and there are moderate degenerative changes of the lumbar spine. PET/PET skull to mid thigh IMPRESSION: 1. The previously no alayna lingular opacity appears decreased in size, non-FDG avid and is likely d ue to atelectasis. 2. Hypermetabolic bilateral axillary, external iliac and inguinal lymphadenopathy suspicious for a lymphoproliferative process such as lymphoma. Consider tissue sampling. 3. Thickening of the nasopharyngeal soft tissues with intense FDG uptake and focus of activity in the left nasopharynx. There is also prominent tonsillar activity, left great er than right. This may be inflammatory or due to malignancy. Consider direct visualization and/or contrast-enhanced CT or MRI of the neck. 4. Additional CT fin dings as described above including partial sacralization of L5 on the left with a pseudoarticulation. This can be a cause of chronic low back pain (Bertolott i's syndrome). There is also evidence of avascular necrosis in the bilateral fem oral heads. Electronically authenticated by: JAVI BAIRES Date: 06/20/2024 23:39 Dictated By: Luma Baires M.D. Signed By: 06/20/24 2342 DD/ 2339 TD/TT: Golf Player Assistant: CT lung screening low-dose Reviewed date:06/04/2024 08:31:37 PM Interpretation: Performing Lab: Notes/Report: Source Facility: [facility]-[address] [place] [address] [place] [address] CT Scan Report Signed Patient: DEON PHOENIX MR#: [id number] : 1965 Acct:[id number] Age/Sex: 58 / M ADM Date: 06/03/24 Loc: CT Attending Dr: Harry Baig M.D. Ordering Physician: Harry Baig M.D. Date of Service: 06/03/24 Procedure(s): CT lung screening low-dose Accession Number(s): [id number] cc: Harry Baig M.D. [place] [address] Patient Name: DEON PHOENIX MRN: [id number] date: 1965 Sex: M Assigned Patient Location: CT Current Patient Location: Accession/Order Number: [id number] Exam Date: 06/03/2024 16:05 Report Date: 06/04/2024 05:44 At the request of: HARRY BAIG Procedure: CT lung screening low-dose EXAMINATION: CT lung screening low-dose HISTORY: F17.210 COMPARISON: No relevant comparison available. TECHNIQUE: Axial, Coronal, and Sagittal images were created without the administration of IV contrast material. Dose reduction techniques were achieved by using automated exposure control and/or adjustment of mA and/or kV according to patient size and/or use of iterative reconstruction technique. FINDINGS: LUNGS: Irregular geographic shaped opacity within lingula, 18 x 16 x 6 mm. Moderate-marked emphysematous changes within upper lung regions. PLEURA: No mass, effusion, or pneumothorax. VASCULATURE: No abnormality. RAGINI: No mass or pathologic adenopathy. MEDIASTINUM: No mass or pathologic adenopathy. CARDIAC: No enlargement, pericardial thickening, or pericardial effusion. Coronary Artery calcifications: AORTA: No aneurysm or dissection. CHEST WALL: No mass or axillary adenopathy BONES: No bone lesion or fracture. LIMITED ABDOMEN: No suspicious findings. Limited images of the upper abdomen. OTHER: Negative. CT/CT lung screening low-dose IMPRESSION: 1. Lung-RADS Category 4B- Suspicious. Findings for which additional diagnostic testing and/ or tissue sampling is recommended. Chest CT with or without contrast, PET/CT and/ or tissue sampling depending on the * probability of malignancy and comorbidities. PET/CT may be used when there is a >= 8 mm solid component. 2. PET imaging recommended for further evaluation of 18 mm geographic shaped soft tissue opacity within lingula. Electronically authenticated by: JAVI JOHNSON Date: 06/04/2024 05:44 Dictated By: Javi Johnson M.D. Signed By: 06/04/24546 DD/ 3 TD/TT: Golf Player Assistant: [place] [address] CT Scan Report Signed Patient: EDDIE PHOENIX MR#: [id number] : 1965 Acct:[id number] Age/Sex: 58 / M ADM Date: 06/03/24 Loc: CT Attending Dr: Cindy Baig M.D. Ordering Physician: Harry Baig M.D. Date of Service: 06/03/24 Procedure(s): CT kiana g screening low-dose Accession Number(s): [id number] cc: Harry Baig M.D. [place] [id number] Patient Name: DEON PHOENIX MRN: [id number] date: 1965 Sex: M Assigned Patient Location: CT Current Patient Location: Accession/Order Numb er: [id number] Exam Date: 16:05 Report Date: 06/04/2024 05:44 At the request of: HARRY BAIG Procedure: CT lung screening low-dose EXAMINATION: CT lung screening low-dose HISTORY: F17.210 COMPARISON: No relev ant comparison available. TECHNIQUE: Axial, Coronal, and Sagittal images were created without the administration of IV contrast material. Dose reduction techniques were achieved by using automated exposure control and/or adjustment of mA and/or kV according to patient size and/ or use of iterative reconstruction technique. FINDINGS: LUNGS: Irregular geographic shaped opacity within lingula, 18 x 16 x 6 mm. Moderate-marked emphysematous changes within upper lung regions. PLEURA: No mass, effusion, or pneumothorax. VASCULATURE: No abnormality. RAGINI: No mass or pathologic adenopathy. MEDIASTINUM: No mass or pathologic adenopathy. CARDIAC: No enlargem ent, pericardial thickening, or pericardial effusion. Coronary Artery calcifications: AORTA: No aneurysm o r dissection. CHEST WALL: No mass or axillary adenopathy BONES: No bone lesio n or fracture. LIMITED ABDOMEN: No suspicious findings. Limited images of the upper abdomen. OTHER: Negative. C T/CT lung screening low-dose IMPRESSION: 1. Lung-RADS Categor y 4B- Suspicious. Findings for which additional diagnostic testing and/ or tiss ue sampling is recommended. Chest CT with or without contrast, PET/CT and / or tissue sampling depending on the * probability of malignancy and comorbidities. PET/CT may be used when there is a >= 8 mm solid component. 2. PET imaging recommended for further evaluation of 18 mm geographic shaped soft tissue opacity within lingula. Electronically authenticated by: JAVI JOHNSON Date: 06/04/2024 05:44 Dictated By: Javi Johnson M.D. Signed By: 06/04/24 0547 DD/ 0544 TD/TT: Golf Player Assistant: PSA SCREENING Reviewed date:05/11/2024 03:46:26 PM Interpretation: Performing Lab: Notes/Report: [facility] , Prostate Specific Antigen Scrn 0.62 <=4.00 ng/mL Performing Lab: see note ML - [facility] PROF 14(COMP METB) Reviewed date:05/11/2024 03:46:26 PM Interpretation: Performing Lab: Notes/Report: [facility] , Sodium 142 136-145 mmol/L Potassium 4.5 3.5-5.1 mmol/L Chloride 107 98-107 mmol/L Carbon Dioxide 26.5 21.0-32.0 mmol/L Anion Gap 13.0 Glucose 98 74-106 mg/dL Blood Urea Nitrogen 14.0 7.0-18.0 mg/dL Creatinine 1.00 0.70-1.30 mg/dL Estimated GFR ( Myra >60 >=60 mL/min/1.73m 2 Estimated GFR (Non- Laurie >60 >=60 mL/min/1.73m 2 BUN Creatinine Ratio 14.0 Calcium 8.7 8.5-10.1 mg/dL Bilirubin Total 0.5 0.2-1.0 mg/dL Aspartate Amino Transferase 6 15-37 U/L Alanine Aminotransferase 20 16-63 U/L Alkaline Phosphatase 109 46-116 U/L Total Protein 6.5 6.4-8.2 g/dL Albumin Level 3.2 3.4-5.0 g/dL Globulin 3.3 Albumin Globulin Ratio 1.0 Performing Lab: see note ML - [facility] LIPID PROFILE Reviewed date:05/11/2024 03:46:26 PM Interpretation: Performing Lab: Notes/Report: [facility] , Triglycerides 138 <=150 mg/dL Cholesterol 179 <=200 mg/dL HDL Cholesterol 37 40-60 mg/dL > or =60 mg/dl - LOW CARDIOVASCULAR RISK <40 mg/dl - HIGH CARDIOVASCULAR RISK LDL Cholesterol Calculated 115.0 <100 mg/dl OPTIMAL 100-129 mg/dl NEAR OR ABOVE OPTIMAL 130-159 mg/dl BORDERLINE HIGH 160-189 mg/dl HIGH >190 mg/dl VERY HIGH VLDL CHOLESTEROL 27.6 Chol HDL Ratio 4.8 3.3 - 4.4 LOW RISK 4.4 - 7.1 AVERAGE RISK 7.1 - 11.0 MODERATE RISK >11.0 HIGH RISK Performing Lab: see note - [facility] GLYCOHEMOGLOBIN A1C Reviewed date:05/11/2024 03:46:26 PM Interpretation: Performing Lab: Notes/Report: [facility] , Glycohemoglobin A1C 5.5 4.5-6.2 % ADA RECOMMENDED LIMIT 4.0 - 6.0 ADA THERAPEUTIC TARGET < 7.0 ACTION SUGGESTED > 7.0 Estimated Average Glucose 111 Performing Lab: see note - [facility] CBC AUTO DIFF Reviewed date:05/11/2024 03:46:26 PM Interpretation: Performing Lab: Notes/Report: [facility] , White Blood Count 7.4 4.0-11.0 10 3/uL Red Blood Count 4.91 4.70-6.10 10 6/uL Hemoglobin 15.0 14.0-18.0 g/dL Hematocrit 44.9 42.0-54.0 % Mean Corpuscular Volume 91.4 80.0-94.0 fL Mean Corpuscular Hemoglobin 30.5 25.9-34.0 pg Mean Corpuscular HGB Conc 33.4 29.9-35.2 g/dL Red Cell Distribution Width 12.6 11.0-15.0 % Platelet Count 223 150-450 10 3/uL Mean Platelet Volume 9.0 9.5-13.5 fL Neutrophils Percent Auto 56.4 43.0-75.0 % Lymphocytes Percent Auto 30.5 20.5-60.0 % Monocytes Percent Auto 9.9 1.7-12.0 % Eosinophils Percent Auto 2.2 0.9-7.0 % Basophils Percent Auto 0.7 0.2-2.0 % Immature Granulocytes Pct Auto 0.3 0.0-0.5 % Neutrophils Absolute Auto 4.2 1.4-6.5 10 3/uL Lymphocytes Absolute Auto 2.3 1.2-3.8 10 3/uL Monocytes Absolute Auto 0.7 0.3-0.8 10 3/uL Eosinophils Absolute Auto 0.2 0.0-0.7 10 3/uL Basophils Absolute Auto 0.1 0.0-0.1 10 3/uL Immature Granulocytes Abs Auto 0.02 0.00-0.03 10 3/uL Performing Lab: see note - [facility] PROF 14(COMP METB) Reviewed date:06/28/2024 05:52:14 PM Interpretation: Performing Lab: Notes/Report: [facility] , Sodium 136 136-145 mmol/L Potassium 4.1 3.5-5.1 mmol/L Chloride 101 98-107 mmol/L Carbon Dioxide 26.0 21.0-32.0 mmol/L Anion Gap 13.1 Glucose 90 74-106 mg/dL Blood Urea Nitrogen 11.0 7.0-18.0 mg/dL Creatinine 1.12 0.70-1.30 mg/dL Estimated GFR ( Myra >60 >=60 mL/min/1.73m 2 Estimated GFR (Non- Laurie >60 >=60 mL/min/1.73m 2 BUN Creatinine Ratio 9.8 Calcium 9.0 8.5-10.1 mg/dL Bilirubin Total 0.5 0.2-1.0 mg/dL Aspartate Amino Transferase 15 15-37 U/L Alanine Aminotransferase 23 16-63 U/L Alkaline Phosphatase 117 46-116 U/L Total Protein 6.9 6.4-8.2 g/dL Albumin Level 3.4 3.4-5.0 g/dL Globulin 3.5 Albumin Globulin Ratio 1.0 Performing Lab: see note ML - [facility] CBC AUTO DIFF Reviewed date:06/28/2024 05:52:14 PM Interpretation: Performing Lab: Notes/Report: [facility] , White Blood Count 8.3 4.0-11.0 10 3/uL Red Blood Count 4.67 4.70-6.10 10 6/uL Hemoglobin 14.1 14.0-18.0 g/dL Hematocrit 42.3 42.0-54.0 % Mean Corpuscular Volume 90.6 80.0-94.0 fL Mean Corpuscular Hemoglobin 30.2 25.9-34.0 pg Mean Corpuscular HGB Conc 33.3 29.9-35.2 g/dL Red Cell Distribution Width 12.9 11.0-15.0 % Platelet Count 230 150-450 10 3/uL Mean Platelet Volume 8.6 9.5-13.5 fL Neutrophils Percent Auto 54.0 43.0-75.0 % Lymphocytes Percent Auto 32.0 20.5-60.0 % Monocytes Percent Auto 10.9 1.7-12.0 % Eosinophils Percent Auto 2.3 0.9-7.0 % Basophils Percent Auto 0.6 0.2-2.0 % Immature Granulocytes Pct Auto 0.2 0.0-0.5 % Neutrophils Absolute Auto 4.5 1.4-6.5 10 3/uL Lymphocytes Absolute Auto 2.7 1.2-3.8 10 3/uL Monocytes Absolute Auto 0.9 0.3-0.8 10 3/uL Eosinophils Absolute Auto 0.2 0.0-0.7 10 3/uL Basophils Absolute Auto 0.1 0.0-0.1 10 3/uL Immature Granulocytes Abs Auto 0.02 0.00-0.03 10 3/uL Performing Lab: see note ML - [facility] Reason For Referral Diagnosis 1 Other fatigue (R53.8 3) Referral Organization [facility] Referring Provider First Name Ramos Referring Provider Last Name Clyde Referring Provider Speciality Family Med [facility] Referred Organization [facility] Referred Provider Yudith Escoto Referred Address [address] [place] [address], [place],[address], Referred Provider Specialty Hematology/O ncology Referral Priority Routine Medications Medication SIG (Take, Route, Fr equency, Duration) Notes Start Date End Date Status Nabumetone 500 MG 1 tablet Orally Twic e a day for 30 day(s) 01/06/2025 Active predniSONE 10 MG 5 tabs per day for 3 days, 4 tabs per day for 3 ays, 3 tabs perday for 3 days, 2 tabs per day for 3 days, 1 tab a day for 3 days, 1/2 tab a day for 4 days Orally Once a day for 19 days 01/09/2025 Active Social History Tobacco Use: Social History [...] Problem Status W/U Status Risk Notes Problem [id number] Unspecified disorder of synovium and tendon, 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 Problem Edema (07455701) Edema (R60.9) Active confirmed Problem Arthritis (4368071) Arthritis (M19.90) Active confirmed Problem Well adult (396959274) Well adult (Z00.00) Active confirmed Vital Signs Blood pressure diastolic 90 mm Hg 01/06/2025 Height 67 in 01/06/2025 Blood pressure systolic 150 mm Hg 01/06/2025 Weight 181.4 lbs 01/06/2025 BMI 28.41 kg/m2 01/06/2025 Encounters Encounter Location Date Provider Diagnosis [address] [address] 05/11/2024 Ramos [address] [address] 06/04/[address] lung screening R91.[address] [address] 06/21/2024 Ramos Baig Other fatigue R53.83 and Abnormal results of function studies of other organs and systems R94.[address] [address] 06/28/2024 Ramos Baig [id number] [place] [address] 06/28/2024 Ramos Baig [facility] [address] [place] [address] 09/03/2024 Ramos Baig [facility] [address] [place] [address] 11/05/2024 Ramos Baig [facility] [address] [place] [address] 01/09/2025 Ramos Baig [facility] [address] [place] [address] 05/09/2024 Ramos Baig Well adult Z00.00 [facility] [address] [place] [address] 01/06/2025 Ramos Baig Edema R60.9 and Arthritis M19.90 [facility] Oncology [address] [place] [address] 07/11/2024 Yudith Escoto [facility] [address] [place] [address] 09/03/2024 Yudith Escoto Assessments Encounter Date Diagnosis (ICD Code) Assessment Notes Treatment Notes Treatment Clinical Notes Section Notes 05/09/2024 Well adult (ICD-10 - Z00.00) 01/06/2025 Edema (ICD-10 - R60.9) 01/06/2025 Arthritis (ICD-10 - M19.90) 06/04/[address] lung screening (ICD-10 - R91.8) 06/21/2024 Other fatigue (ICD-10 - R53.83) 06/21/2024 Abnormal results of function studies of other organs and systems (ICD-10 - R94.8) Plan Of Treatment Pending Test Test Name Order Date CMP (COMPLETE METABOLIC PANEL) 4 HEMOGLOBIN A1C (GLYCO) 05/09/2024 LIPID PANEL (CHOL/TRIG/HDL/LDL) 05/09/20 24 CBC WITH DIFF 05/09/2024 PSA, TOTAL 05/09/2024 STOOL OCCULT BLOOD 05/09/2024 VC VENOUS REFLUX CK LMT 01/06/2025 CT CHEST LOW DOSE (LDCT) 05/09/2024 Next Appt Details Provider Name:Yudith Escoto , 03/04/2025 01:00:00 PM, [address] [place], [address], Insurance Providers Payer Name Payer Address Payer Phone Subscriber Number Group Number Insured Name Patient Relationship to Insured Coverage Start Date Coverage End Date [employer]ESS PPO PLUS LOCAL PLAN [address] [place] [phone] [id number] Deon [place] Self - patient is the insured Medical (General) History Surgical History Surgery Date(Month/Year) Right Shoulder Scope 12/26/23
--- OUTSIDE RECORDS SUMMARY | 2025-01-15 10:56 | XMS_ITS | Encounter Summary ---
Author Organization [facility] tem Address [id number] [address] [place] [address] Care Team Providers Care Rehabilitation Attendant Name Role Phone Aries Tang MD Primary Care Provider [phone] Encounter Details Date Type Department Care Team ([facility] st Contact Info) Description 07/17/2024 Telephone [facility] Center - ENT [address] [place] [address] Deon Stratton MD [address] [place] [address] Social History Tobacco Use Types Packs/Day Years [...] would like note sent to his email [email or web address] * Telephone Encounter - Catarina Christianson CNA - 07/17/2024 11:13 AM EST Called and LM with patient to verify date he returned/is returning to work. Will send note once he calls back documented in this encounter Plan of Treatment Not on file documented as of this encounter Visit Diagnoses Not on filedocumented in this encounter Care Teams Rehabilitation Attendant Relationship Specialty Start Date End Date Aries Tang MD [address] [place] [address] PCP - General Family Medicine 07/17/24 documented as of this encounter
--- OUTSIDE RECORDS SUMMARY | 2025-01-15 10:56 | XMS_ITS | Clinical Summary ---
Author [facility] Address [facility] [id number] [address] [place] [address] Care Team Providers Care Corporate Analyst Name Role Phone Aries Tang MD Primary Care Provider [phone] Allergies No known active allergies Medications meloxicam [...] Description 11/08/2024 10:15 AM EDT Office Visit [facility] - ENT [address] [place] [address] Deon Stratton MD Malignant neoplasm [...] Not on file Insurance ANTH Care Teams Corporate Analyst Relationship Specialty Start Date End Date Aries Tang MD [address] [place] [address] PCP - General Family Medicine 07/17/24
--- OUTSIDE RECORDS SUMMARY | 2025-01-15 10:56 | XMS_ITS | Encounter Summary ---
Author Organization [employer] [facility] Address [facility] [id number] [address] [place] [address] Care Team Providers Care Contracts Attorney Name Role Phone Aries Tang MD Primary Care Provider [phone] Reason for Referral * Diagnostic Imaging (Routine) - Pending Review Specialty Diagnoses / Procedures Referred By Contac t Referred To Contact Radiology Diagnoses Pain Procedures CT low dose lung screening (Annual) [facility] [address] [place] [phone] Phone: tel: fax: Referral ID Status Reason Start Date Expiration Date V isits Requested Visits Authorized [id number] Pending Review 07/16/2024 07/16/2025 1 1 * Diagnostic Imaging (Routine) - Pending Review Specialty Diagnoses / Procedures Referred By Contac t Referred To Contact Radiology Diagnoses Pain Procedures NON [facility] PET CT WHOLE BODY [facility] [address] [place] [phone] Phone: tel: fax: Referral ID Status Reason Start Date Expiration Date V isits Requested Visits Authorized [id number] Pending Review 07/16/2024 07/16/2025 1 1 Encounter Details Date Type Department Care Team (Late st Contact Info) Description 07/16/2024 Orders Only [facility] [address] [place] [phone] Transcribe, Orders Support User Pain (Primary [...] pain documented in this encounter Care Teams Contracts Attorney Relationship Specialty Start Date End Date Aries Tang MD [address] [place] [address] PCP - General Family Medicine 07/17/24 documented as of this encounter
--- OUTSIDE RECORDS SUMMARY | 2025-01-15 10:56 | XMS_ITS | Encounter Summary ---
Author Organization [facility] tem Address [facility] [id number] [address] [place] [address] Care Team Providers Care Manager Stylist Name Role Phone Aries Tang MD Primary Care Provider [phone] Encounter Details Date Type Department Care Team (Late st Contact Info) Description 07/16/2024 Orders Only [facility] - ENT [address] [place] [address] Ref Prov, [place] [address] Social History Tobacco Use Types Packs/Day Years [...] on filedocumented in this encounter Care Teams Manager Stylist Relationship Specialty Start Date End Date Aries Tang MD [address] [place] [address] PCP - General Family Medicine 07/17/24 documented as of this encounter
--- OUTSIDE RECORDS SUMMARY | 2025-01-15 10:56 | XMS_ITS | Encounter Summary ---
Author Organization [facility] tem Address [facility] [id number] [address] [facility] [address] Care Team Providers Care Facepiece Line Supervisor Name Role Phone Aries Tang MD Primary Care Provider [phone] Encounter Details Date Type Department Care Team (Late st Contact Info) Description 07/15/2024 Telephone [facility] - ENT [address] [place] [address] No Pcp, [place] [address] Social History Tobacco Use Types Packs/Day Years [...] week. He should have outside imaging from [facility]. Okay to double book. Do not double [...] on filedocumented in this encounter Care Teams Facepiece Line Supervisor Relationship Specialty Start Date End Date Aries Tang MD [address] [place] [address] PCP - General Family Medicine 07/17/24 documented as of this encounter
--- OUTSIDE RECORDS SUMMARY | 2025-01-15 10:56 | XMS_ITS | Encounter Summary ---
Author Organization [facility] tem Address [facility] [id number] [address] [place] [address] Care Team Providers Care Interface Control Officer Name Role Phone Aries Tang MD Primary Care Provider [phone] Reason for Visit * Reason Onset Date Comments Need office notes faxed 07/23/2024 Encounter Details Date Type Department Care Team (Late st Contact Info) Description 07/23/2024 Telephone [facility] - ENT [address] [place] [address] Deon Stratton MD [address] [place] [address] Need office notes faxed Social History Tobacco [...] called 07/23. Need office notes faxed to [phone]. Patient of Dr. Stratton. * Telephone Encounter - Karmen Marks MA - 07/23/2024 10:36 AM EST Faxed. documented in this encounter Plan of Treatment Not on file documented as of this encounter Visit Diagnoses Not on filedocumented in this encounter Care Teams Interface Control Officer Relationship Specialty Start Date End Date Aries Tang MD [address] [place] [address] PCP - General Family Medicine 07/17/24 documented as of this encounter
--- OUTSIDE RECORDS SUMMARY | 2025-01-15 10:56 | XMS_ITS | Encounter Summary ---
Author Organization [facility] tem Address [facility] [id number] [address] [place] [address] Care Team Providers Care Blood Bank Manager Name Role Phone Aries Tang MD Primary Care Provider [phone] Encounter Details Date Type Department Care Team ([facility] st Contact Info) Description 07/18/2024 Orders Only [facility] - MRI [address] [place] [phone] Yudith Escoto MD [address] [place] [address] [address] [place] [address] Inguinal lymphadenopathy (Primary Dx) Social History Tobacco [...] nodes documented in this encounter Care Teams Blood Bank Manager Relationship Specialty Start Date End Date Aries Tang MD [address] [facility] [place] [address] PCP - General Family Medicine 07/17/24 documented as of this encounter
--- OUTSIDE RECORDS SUMMARY | 2025-01-15 10:56 | XMS_ITS | Encounter Summary ---
Author Organization [facility] Address [facility] [id number] [address] [place] [address] Care Team Providers Care Skate Boarder Name Role Phone Aries Tang MD Primary Care Provider [phone] Encounter Details Date Type Department Care Team ([facility] st Contact Info) Description 07/18/2024 Orders Only [facility] [address] [place] [address] External, Scanning Provider Pain (Primary [...] pain documented in this encounter Care Teams Skate Boarder Relationship Specialty Start Date End Date Aries Tang MD [address] [facility] [place] [address] PCP - General Family Medicine 07/17/24 documented as of this encounter
== END 2025-01-15 10:54 | disposition home or self-care (01) ==
LOC: US 10:53
PROVIDERS: PCP Family Medicine; Visit Provider Family Medicine
DX: R60.9 Edema, unspecified (principal)
CPT/HCPCS: 93970

== ENCOUNTER 2025-03-11 07:55 | Outpatient (RCR) | payer BC, SELFPAY ==
[2025-03-11 08:22] LABS: Hematocrit 42.9 % (42.0-54.0); Hemoglobin 14.1 g/dL (14.0-18.0); Immature Granulocytes Abs Auto 0.04 10^3/uL (0.00-0.03); Immature Granulocytes Pct Auto 0.4 % (0.0-0.5); Lymphocytes Absolute Auto 1.4 10^3/uL (1.2-3.8); Mean Corpuscular HGB Conc 32.9 g/dL (29.9-35.2); Mean Corpuscular Hemoglobin 30.1 pg (25.9-34.0); Mean Corpuscular Volume 91.7 fL (80.0-94.0); Platelet Count 266 10^3/uL (150-450); Red Blood Count 4.68 10^6/uL (4.70-6.10); White Blood Count 10.4 10^3/uL (4.0-11.0)
[2025-03-11 08:34] LABS: Alanine Aminotransferase 21 U/L (16-63); Albumin Globulin Ratio 0.9; Albumin Level 3.4 g/dL (3.4-5.0); Alkaline Phosphatase 110 U/L (46-116); Anion Gap 11.8; Aspartate Amino Transferase 10 U/L (15-37); Blood Urea Nitrogen 13.0 mg/dL (7.0-18.0); Calcium 9.2 mg/dL (8.5-10.1); Carbon Dioxide 28.1 mmol/L (21.0-32.0); Chloride 103 mmol/L (98-107); Estimated GFR (African America >60 (>=60 mL/min/1.73m^2); Estimated GFR (Non-African Ame >60 (>=60 mL/min/1.73m^2); Globulin 3.9 g/dL; Glucose 128 mg/dL (74-106); Potassium 3.9 mmol/L (3.5-5.1); Sodium 139 mmol/L (136-145); Total Protein 7.3 g/dL (6.4-8.2)
== END 2025-04-01 23:59 | disposition home or self-care (01) ==
LOC: HEMC 07:55
PROVIDERS: PCP Family Medicine; Visit Provider Internal Medicine Hematology & Oncology
DX: R91.1 Solitary pulmonary nodule (principal); R59.1 Generalized enlarged lymph nodes; F17.210 Nicotine dependence, cigarettes, uncomplicated
CPT/HCPCS: 36415; 80053; 83615; 85025; 85652; 86140; G0463